=== PATIENT | female | born 1995 | race Caucasian/White ===

== ENCOUNTER 2017-12-03 23:08 | Emergency (ER) | payer OTHER, SELFPAY ==
[2017-12-03 23:09] VITALS: BP 150/85; PULSE 119; RESP 17; TEMP 36.9; O2SAT 98; BMI 44.1
[2017-12-03 23:41] LABS: Bedside Glucose 224 mg/dL (70-110)
--- NOTE | 2017-12-04 00:07 | ED.DCSUM_ITS ---
- ER Visit Summary Date of Service: 12/04/17 Chief Complaint: Elevated blood sugar History of Present Illness: The patient is a 22 F known history of type 1 insulin-dependent diabetes. With insulin pump. Patient states her blood sugars been elevated all day with associated nausea. No vomiting or diarrhea. No fever. Mild headache. Has had a history of DKA before that is what she wants to be checked for. Physical Examination: Vital signs stable afebrile. No acute distress. H EENT exam unremarkable. Pupils round reactive light. Neck nontender no meningismus. Able to touch chin to chest. Lungs clear to auscultation bilaterally. Heart regular rhythm no murmur rate about 115. Abdomen soft nontender normal bowel sounds no peritoneal signs. Moving all 4 extremities. Neurovascular intact. Neurologic exam normal. Skin normal. No rashes. Back nontender. Test Results: CBC shows a white count of 6. Hemoglobin of 11.9 a mild anemia. Otherwise unremarkable. Electrolytes gap of 9. Creatinine is 0.9 glucose of 194. UA normal no signs of infection. There is glucose in urine. Serum ketones are negative Emergency Department Course and Treatment: Patient will be treated with IV fluids, Zofran and Toradol. She will be evaluated for DKA which I feel is unlikely. Treatment Plan: Patient is doing well after a liter of normal saline. Repeat exam 01:30 she is doing well. Disposition: Discharge Impression: Acute hyperglycemia with a history of insulin-dependent diabetes This note was generated with [employer] dictation software. It may contain incorrect words, spelling, and punctuation that were not noted in review of the chart prior to signing ED Disposition - Plan for ED Patient: Disposition: Home or Assisted Living Chief Complaint: Dizziness Instructions: ED Hyperglycemia Diabetic Referrals: Edy Hyde MD [Primary Care Provider] - 3-5 Days Additional Instructions: Watch her blood sugars closely. Plenty of fluids.
[2017-12-04 00:09] VITALS: BP 110/44; PULSE 93; RESP 19; O2SAT 98
[2017-12-04] MEDS: Ondansetron 4 MG/2 ML Vial IV (00:19)
[2017-12-04] MEDS: Ketorolac 30 MG/ML Syringe IV (00:20)
[2017-12-04 00:46] LABS: Bacteria 0 SEEN /hpf (None Seen); Mucous, Urine 0 SEEN /hpf (<or=2+); Red Blood Cells-Urine 0 SEEN /hpf (0-5); White Blood Cells 0 SEEN /hpf (0-5)
[2017-12-04 00:47] LABS: Color, Urine Yellow (Yellow); Glucose, Dipstick 50 mg/dl (Normal); Ketone-Dipstick Negative (Negative); Leukocyte Esterase-Dipstick Negative /ul (Negative); Nitrite-Dipstick Negative (Negative); Occult Blood-Urine Negative /ul (Negative); Protein-Dipstick Negative (Negative); Specific Gravity, Urine 1.015 (1.002-1.030); Urine Bilirubin Dipstick Negative (Negative); Urine Clarity Clear (Clear); Urine Urobilinogen Normal (Normal)
[2017-12-04 00:55] LABS: Squamous Epithelial Cells - UA 0-5 SEEN /hpf (5-10)
[2017-12-04 01:08] LABS: Absolute Neutrophil Count 4.2 X10^3/uL (2.0-7.7); Basophil# 0.03 X10^3/uL; Basophil% 0.4 % (0-1); Eosinophil# 0.12 X10^3/uL; Eosinophils% 1.7 % (0-5); Hemoglobin 11.9 g/dl (12.0-15.0); Mean Corp Hgb Conc 33.1 g/gl (32-36); Mean Corpuscular Hgb 27.4 pg (27.0-32.0); Mean Corpuscular Volume 82.8 fL (81-99); Mean Platelet Vol. 11.5 fl (6.2-12.0); Monocyte# 0.52 X10^3/uL; Monocyte% 7.5 % (0-10); Neutrophil # 4.22 X10^3/uL (2.7-7.7); Neutrophil % 61.3 % (47-70); Platelet Count 189 K/mm3 (150-450); RBC Distribution Width CV 13.2 % (11.6-14.6); RBC Distribution Width SD 39.4 fl (35.1-43.9); Red Blood Count 4.35 M/mm3 (4.2-5.4); White Blood Count 6.9 K/mm3 (4.4-11.0)
[2017-12-04 01:09] LABS: POSITIVE COUNT NO; POSITIVE DIFFERENTIAL NO; POSITIVE MORPHOLOGY NO
[2017-12-04 01:21] LABS: Anion Gap 9 (5-15); BUN 9 mg/dL (7-18); BUN/Creat Ratio 9.8 RATIO (10-20); Calcium,Total 8.1 mg/dL (8.5-10.1); Chloride 110 mmol/L (98-107); Creatinine, Serum 0.92 mg/dL (0.55-1.02); EST Glomerular Filtration Rate 81 mL/min (>60); Est Glom Filt Rate - Afr Amer 98 mL/min (>60); Estimated Creatinine Clearance 103.72 ml/min; Glucose 194 mg/dL (74-106); Potassium 3.8 mmol/L (3.5-5.1); Sodium Level 140 mmol/L (136-145)
--- NOTE | 2017-12-04 01:32 | ED.DEP ---
ED Disposition - Plan for ED Patient: Disposition: Home or Assisted Living Chief Complaint: Dizziness Instructions: ED Hyperglycemia Diabetic Referrals: Edy Hyde MD [Primary Care Provider] - 3-5 Days Additional Instructions: Watch her blood sugars closely. Plenty of fluids.
[2017-12-04 01:51] VITALS: BP 98/63; PULSE 74; RESP 16; O2SAT 100
--- NOTE | 2017-12-04 01:52 | ED.RN ---
THIS NURSE REVIEWED D/C INSTRUCTIONS WITH PT. PT VERBALIZED UNDERSTANDING OF INSTRUCTIONS. IV D/C. IV CATHETER INTACT. PT TOLERATED WELL. PT DENIES FURTHER NEEDS OR QUESTIONS AT THIS TIME
== END 2017-12-04 01:53 | disposition home or self-care (01) ==
PROVIDERS: Emergency Provider Emergency Medicine; Family Provider Family Medicine; PCP Family Medicine
DX: E10.65 Type 1 diabetes mellitus with hyperglycemia (principal); Z79.4 Long term (current) use of insulin; Z96.41 Presence of insulin pump (external) (internal)
CPT/HCPCS: 36415; 80048; 81001; 82009; 82962; 85025; 96361; 96374; 96375; 99285; J7030; J7040; A4216; J2405

== ENCOUNTER 2018-02-16 22:23 | Emergency (ER) | payer OTHER, SELFPAY ==
[2018-02-16 22:25] VITALS: BP 119/71; PULSE 91; RESP 15; TEMP 36.6; BMI 43.9
[2018-02-16 22:36] LABS: Bedside Glucose 249 mg/dL (70-110)
--- NOTE | 2018-02-16 22:42 | ED.DCSUM_ITS ---
- ER Visit Summary Date of Service: 02/16/18 Chief Complaint: Nausea and vomiting History of Present Illness: The patient is a 22 F reports headache nausea and vomiting since this morning. No falls or head injuries. Photo and phonophobia. Positive aura. History of migraines however has not had any recently. No increased stress. Insulin-dependent diabetic. States been diabetic since 2016, is on insulin pump since April. Reports forgot to use her insulin pump when she went to work last evening. Restarted this morning when symptoms started. 3 total emesis last time was 2 hours ago. No hematemesis. No diarrhea. States was able to eat a few hours ago did give herself an bolus. Reports given herself 5 units before her meal. Does not know her current basal rate. Checking her unit, her basal rate is set with timers between 1.5-1 per 6 units/h. States that it feels similar to her DKA in the past. No fevers. Last menstrual period was a week ago. Normal cycles. Complains of polyuria and polydipsia. Physical Examination: General: Alert and oriented ?3, no acute distress HEENT: Normocephalic, atraumatic. Mild photophobia moist mucosa membranes Neck: supple, nontender. No meningismus Cardiovascular: Regular rate and rhythm, no murmurs Respiratory: Normal breath sounds, symmetric, no distress Abdomen: Soft, nontender, nondistended, no guarding or rebound Extremities: Nontender, no edema, pulses intact ?4 Neuro: no focal neurological deficits. Test Results: BG T2 49. Glucose 226 in the lab, gap was 6. Potassium 4.4. Creatinine 0.80. UA negative. HCG negative. Acetone negative. CBC white count 2.7, hemoglobin 13, platelets 180. Emergency Department Course and Treatment: Patient's pump was shut off in the ED. Blood glucose 249. Initiated fluids and labs for DKA rule out. This resulted was negative. She is treated for migraine symptoms with Reglan and Benadryl. CBC resulted returned noting neutropenia white count 2.7 normal hemoglobin and platelets. This was new compared to labs 2 months ago. She has no fever. No cough. Polyuria, UA obtained and returned negative for infection. With her headache symptoms neutropenia I did send for CT head which was normal. Additional Toradol and Zofran after negative results. On reevaluation improved symptoms. Discussed with patient neutropenia findings. She is given follow-up with hematology as an outpatient for reevaluation. All questions were answered. Treatment Plan: [] Disposition: Discharge Impression: 1. Migraine headache 2. Nausea and vomiting 3. Neutropenia This note was generated with [employer] software. It may contain incorrect words, spelling, and punctuation that were not noted in review of the chart prior to signing ED Disposition - Plan for ED Patient: Disposition: Home or Assisted Living Chief Complaint: Nausea/Vomiting Diagnosis: Migraine headache, Nausea and vomiting, Neutropenia Instructions: ED Nausea Vomiting, ED Headache Migraine, Neutropenia Prescriptions: Ondansetron [Zofran Odt] 8 mg PO Q8H PRN PRN #10 tab PRN Reason: Nausea Referrals: Rodrigo Donaldson MD [Primary Care Provider] - Nicho Cruz MD [NON-STAFF] - 3-5 Days Additional Instructions: WBC 2.7. Hemoglobin 13. Platelets 180. Follow-up with hematology as an outpatient for evaluation.
--- NOTE | 2018-02-16 22:43 | ED.RN ---
pt asked to place insulin pump on hold. informed and agreed. criss queen, rn [id number]
[2018-02-16] MEDS: Metoclopramide 10 MG/2 ML Vial IV (23:26)
[2018-02-16] MEDS: DiphenhydrAMINE 50 MG/ML Syringe 25 MG IV (23:26)
[2018-02-16] MEDS: 0.9% Normal Saline 1,000 ML 999 ML IV (23:27)
--- NOTE | 2018-02-16 23:35 | ED.RN ---
pt required mulitple attempts with ultrasound obtain a line. she has required a central line in the past. pt she is resting eyes closed. mother is at bedside. waiting for labs. pt is aware of the need for urine. criss queen rn [id number]
[2018-02-16 23:36] LABS: Anion Gap 6 (5-15); BUN 9 mg/dL (7-18); BUN/Creat Ratio 11.2 RATIO (10-20); Calcium,Total 8.3 mg/dL (8.5-10.1); Chloride 107 mmol/L (98-107); EST Glomerular Filtration Rate 94 mL/min (>60); Est Glom Filt Rate - Afr Amer 114 mL/min (>60); Estimated Creatinine Clearance 119.28 ml/min; Glucose 226 mg/dL (74-106); Potassium 4.4 mmol/L (3.5-5.1); Sodium Level 137 mmol/L (136-145)
[2018-02-16 23:45] LABS: Absolute Neutrophil Count 1.4 X10^3/uL (2.0-7.7); Basophil# 0.06 X10^3/uL; Basophil% 2.3 % (0-1); Eosinophil# 0.03 X10^3/uL; Eosinophils% 1.1 % (0-5); Hematocrit 39.2 % (37-47); Lymphocyte % 30.2 % (19-41); Mean Corp Hgb Conc 33.2 g/gl (32-36); Mean Corpuscular Hgb 27.2 pg (27.0-32.0); Monocyte# 0.32 X10^3/uL; Monocyte% 12.1 % (0-10); Neutrophil # 1.43 X10^3/uL (2.7-7.7); Neutrophil % 53.9 % (47-70); POSITIVE COUNT NO; POSITIVE DIFFERENTIAL NO; POSITIVE MORPHOLOGY NO; Platelet Count 180 K/mm3 (150-450); RBC Distribution Width CV 13.4 % (11.6-14.6); RBC Distribution Width SD 39.2 fl (35.1-43.9); Red Blood Count 4.78 M/mm3 (4.2-5.4); White Blood Count 2.7 K/mm3 (4.4-11.0)
[2018-02-17 00:09] LABS: Pregnancy, Serum, hCG Quali. NEGATIVE Negative (0-9 Nonpreg)
--- NOTE | 2018-02-17 00:14 | CT_ITS ---
STUDY: CT BRAIN WITHOUT CONTRAST REASON FOR EXAM: Female, 22 years old. Nausea, vomiting and headache since yesterday. RADIATION DOSAGE (If Supplied By Facility): CTDIvol = ( 44.99 ) mGy, DLP = ( 762.36 ) mGycm TECHNIQUE: Transaxial CT imaging of the brain was performed without administration of intravenous contrast material. Multiplanar reformations are submitted for interpretation. Individualized dose optimization techniques were used for this CT. COMPARISON: None. FINDINGS: Normal soft tissue structures. Normal calvarium. Normal size ventricles and extra-axial spaces for the patient's age. Normal white matter tracts of the cerebral hemispheres. Normal basal ganglia and thalami. Normal brainstem. Normal cerebellum. There is no intracranial hemorrhage. There are no findings of an acute ischemic infarction. Normal visualized paranasal sinuses. CT/Brain/Head without Contrast IMPRESSION: No CT evidence of acute intracranial hemorrhage. Electronically Signed: Lynda Sotelo MD at 0:50 EST , Service support ,
[2018-02-17] MEDS: Ketorolac 30 MG/ML Syringe IV (00:42)
[2018-02-17] MEDS: Ondansetron 4 MG/2 ML Vial IV (00:42)
[2018-02-17 00:56] LABS: Bacteria 0 SEEN /hpf (None Seen); Mucous, Urine 0 SEEN /hpf (<or=2+); Red Blood Cells-Urine 0 SEEN /hpf (0-5); White Blood Cells 0 SEEN /hpf (0-5)
[2018-02-17 01:08] LABS: Color, Urine Yellow (Yellow); Glucose, Dipstick 250 mg/dl (Normal); Ketone-Dipstick Negative (Negative); Leukocyte Esterase-Dipstick Negative /ul (Negative); Nitrite-Dipstick Negative (Negative); Occult Blood-Urine Negative /ul (Negative); Protein-Dipstick Negative (Negative); Specific Gravity, Urine 1.015 (1.002-1.030); Urine Bilirubin Dipstick Negative (Negative); Urine Clarity Sl. Cloudy (Clear); Urine Urobilinogen Normal (Normal)
[2018-02-17 01:18] LABS: Squamous Epithelial Cells - UA 0-5 SEEN /hpf (5-10)
[2018-02-17 01:48] VITALS: BP 106/59; PULSE 64; RESP 16; O2SAT 99
== END 2018-02-17 01:51 | disposition home or self-care (01) ==
PROVIDERS: Emergency Provider Emergency Medicine; Family Provider Family Medicine; PCP Family Medicine
DX: G43.909 Migraine, unspecified, not intractable, without status migrainosus (principal); R11.2 Nausea with vomiting, unspecified; D70.9 Neutropenia, unspecified; E11.9 Type 2 diabetes mellitus without complications; Z79.4 Long term (current) use of insulin
CPT/HCPCS: 70450; 80048; 81001; 82009; 82962; 84703; 85025; 96361; 96374; 96375; 99285; J7030; A4216; J2405

== ENCOUNTER 2018-02-21 16:09 | Emergency (ER) | payer OTHER, SELFPAY ==
[2018-02-21] VITALS (8 sets, daily range): BP systolic 104–144; BP diastolic 53–112; PULSE 63–87; RESP 16–19; TEMP 36.4; O2SAT 98–100; BMI 46.6
--- NOTE | 2018-02-21 16:24 | EKG12_ITS ---
Test Reason : MIGRAINE, CP Blood Pressure : / mmHG Vent. Rate : 080 BPM Atrial Rate : 080 BPM P-R Int : 160 ms QRS Dur : 092 ms QT Int : 406 ms P-R-T Axes : 052 027 014 degrees QTc Int : 468 ms Normal sinus rhythm Normal ECG Confirmed by APOLONIA LUX, NATIVIDAD ([id number]), news video editor ROSALEE LAWLER ([id number]) on 02/24/2018 10:56:06 AM Referred By: RUPESH Confirmed By:NATIVIDAD BARKSDALE MD
--- NOTE | 2018-02-21 16:24 | RAD_ITS ---
STUDY: X-RAY CHEST REASON FOR EXAM: Female, 22 years old. Chest pain TECHNIQUE: AP portable COMPARISON: None. FINDINGS: The lungs are clear and expanded. There is no demonstrated pleural abnormality. Normal size heart. Normal mediastinum and joe. Normal visualized pulmonary arteries. Normal visualized aortic arch and descending thoracic aorta. Normal visualized thoracic spine. Normal visualized ribs, clavicles, and shoulders. There is no demonstrated abnormality of the visualized soft tissue structures of the upper abdomen. RAD/Chest 1 View (Portable) IMPRESSION: Normal x-ray examination of the chest. Electronically Signed: Vega Marquez MD at 17:29 EST , Service support ,
--- NOTE | 2018-02-21 16:25 | US_ITS ---
STUDY: ABDOMINAL ULTRASOUND - RIGHT UPPER QUADRANT REASON FOR VISIT: Female, 22 years old. Abdominal pain TECHNIQUE: Ultrasound evaluation of the right upper quadrant was performed with real-time and static ugarte-scale imaging. TECHNICAL QUALITY: Adequate. COMPARISON: None. FINDINGS: Liver: The liver measures 18.3 cm. There is mildly increased echogenicity of the liver. The bile ducts are within normal limits. There is hepatic color flow. The direction of portal flow is hepatopetal. There is no demonstrated mass lesion. Gallbladder: Normal distended gallbladder. The gallbladder wall measures 2 mm. There is a negative sonographic Che's sign. There is no pericholecystic fluid. There are no gallstones. Common Bile Duct (C.B.D.): The common bile duct measures 4 mm. Pancreas: Normal size of the head, body and tail of the pancreas. There is normal echogenicity of the pancreas. There is no demonstrated pancreatic mass or cyst. Right Kidney: Normal size of the right kidney. The right kidney measures 12.4 x 5.4 x 4 cm. Normal renal cortex. The right cortex measures 1.3 cm. There is no demonstrated renal mass or cyst. There is no right hydronephrosis. US/Gallbladder IMPRESSION: Mildly enlarged fatty infiltrated liver No evidence for gallstones or definitive evidence for acute cholecystitis. Electronically Signed: Vega Marquez MD at 17:08 EST , Service support ,
--- NOTE | 2018-02-21 16:27 | ED.VISSUMM ---
- ER Visit Summary Date of Service: 02/21/18 Chief Complaint: Chest pain, headache, abdominal pain History of Present Illness: The patient is a 22 F presenting with chest pain, headache, abdominal pain. Patient was seen in the ED on Saturday for her migraine headache. She had a workup and felt improved and went home. She states her migraine continued and gradually worsened. She states currently it is 8 out of 10. It is similar to previous migraines. She states 1.5 hours ago she started having midsternal chest pain radiating to her left shoulder. She also complains of right upper quadrant and epigastric abdominal pain. This is worsened with eating. She has nausea and vomiting. She had diarrhea previously and this has resolved. She denies fever. She also states she is having difficulty controlling her blood sugars and they have been in the 300s. She has an insulin pump. Physical Examination: Vitals are stable. Patient is afebrile. Alert no acute distress. HEENT exam is unremarkable. Neck is supple. No meningismus Lungs are clear and equal bilaterally. Heart is regular rate and rhythm. Abdomen is soft right upper quadrant and epigastric tenderness with no rebound or guarding Extremities are unremarkable. Skin is warm and dry. No rash No focal neurologic deficit. Remainder of exam is unremarkable. Emergency Department Course and Treatment: Patient is given Reglan, Benadryl, IV fluids. EKG is normal sinus rhythm rate of 80. CBC showed a white count 4.3, platelets 144. Chemistries show glucose 119 with normal anion gap. Liver lipase are normal. Urinalysis is unremarkable. Troponin is negative. Ultrasound of the gallbladder shows no gallstones or evidence of cholecystitis, mildly enlarged fatty liver. Chest x-ray shows no acute process. CTA head and neck are normal. CT of the chest shows artifact with no obvious PE. CT abdomen pelvis shows mild nonspecific prominence of the liver and spleen. Tiny subcentimeter mediastinal nodes of uncertain etiology or clinical significance. Minor diverticular changes in the sigmoid colon without evidence for acute diverticulitis. No evidence for small bowel obstruction or pneumoperitoneum. On reevaluation, patient's headache and chest pain are both resolved. My suspicion for PE is low. She is not tachycardic or hypoxic. Schoolcraft test was ordered and is positive. Patient is advised to drink plenty of fluids and use Tylenol or Motrin at home. Advised to return to the ED for worsening complaints. Advised to follow-up with primary care physician. Disposition: Discharge home Impression: Mononucleosis This note was generated with [employer] dictation software. It may contain incorrect words, spelling, and punctuation that were not noted in review of the chart prior to signing ED Disposition - Plan for ED Patient: Chief Complaint: Chest Pain Referrals: Rodriog Donaldson MD [Primary Care Provider] -
[2018-02-21] MEDS: Metoclopramide 10 MG/2 ML Vial IV (16:33)
[2018-02-21] MEDS: DiphenhydrAMINE 50 MG/ML Syringe 25 MG IV (16:33)
[2018-02-21] MEDS: 0.9% Normal Saline 1,000 ML 1000 ML IV (16:33)
[2018-02-21 17:23] LABS: Bacteria 0 SEEN /hpf (None Seen); Mucous, Urine 0 SEEN /hpf (<or=2+); Red Blood Cells-Urine 0 SEEN /hpf (0-5); Squamous Epithelial Cells - UA 0 SEEN /hpf (5-10); White Blood Cells 0 SEEN /hpf (0-5)
[2018-02-21 17:24] LABS: Color, Urine Straw (Yellow); Glucose, Dipstick Normal (Normal); Ketone-Dipstick Negative (Negative); Leukocyte Esterase-Dipstick Negative /ul (Negative); Nitrite-Dipstick Negative (Negative); Occult Blood-Urine Negative /ul (Negative); Protein-Dipstick Negative (Negative); Specific Gravity, Urine 1.005 (1.002-1.030); Urine Bilirubin Dipstick Negative (Negative); Urine Clarity Clear (Clear); Urine Urobilinogen Normal (Normal)
[2018-02-21 17:42] LABS: Absolute Lymphocyte Count 2.44 X10^3/ul (0.83-4.51); Absolute Neutrophil Count 1.1 X10^3/uL (2.0-7.7); Basophil# 0.14 X10^3/uL; Basophil% 3.2 % (0-1); Eosinophil# 0.06 X10^3/uL; Eosinophils% 1.4 % (0-5); Hematocrit 40.8 % (37-47); Hemoglobin 13.6 g/dl (12.0-15.0); Lymphocyte # 2.44 X10^3/ul (4.0); Lymphocyte % 56.6 % (19-41); Mean Corp Hgb Conc 33.3 g/gl (32-36); Mean Corpuscular Hgb 26.9 pg (27.0-32.0); Mean Corpuscular Volume 80.6 fL (81-99); Monocyte# 0.54 X10^3/uL; Monocyte% 12.5 % (0-10); Neutrophil # 1.12 X10^3/uL (2.7-7.7); Neutrophil % 26.1 % (47-70); Platelet Count 144 K/mm3 (150-450); RBC Distribution Width CV 13.1 % (11.6-14.6); Red Blood Count 5.06 M/mm3 (4.2-5.4); White Blood Count 4.3 K/mm3 (4.4-11.0)
[2018-02-21 17:51] LABS: AST(SGOT) 25 U/L (15-37); Alanine Aminotransfer ALT/SGPT 37 U/L (13-56); Albumin, Serum 3.6 g/dL (3.2-5.0); Alkaline Phosphatase 73 U/L (45-117); Anion Gap 9 (5-15); BUN 11 mg/dL (7-18); BUN/Creat Ratio 15.3 RATIO (10-20); Bilirubin, Direct 0.09 mg/dL (0.00-0.30); Calcium,Total 8.7 mg/dL (8.5-10.1); Chloride 106 mmol/L (98-107); Creatinine, Serum 0.72 mg/dL (0.55-1.02); EST Glomerular Filtration Rate 107 mL/min (>60); Est Glom Filt Rate - Afr Amer 129 mL/min (>60); Estimated Creatinine Clearance 128.08 ml/min; Globulin 3.9 g/dL (2.2-4.2); Glucose 119 mg/dL (74-106); Lipase 208 U/L (73-393); Potassium 3.9 mmol/L (3.5-5.1); Protein, Total 7.5 g/dL (6.4-8.2); Sodium Level 140 mmol/L (136-145)
[2018-02-21 17:54] LABS: Differential Indicated SCAN CRITERIA MET; POSITIVE COUNT NO; POSITIVE DIFFERENTIAL NO; POSITIVE MORPHOLOGY YES
[2018-02-21 18:01] LABS: D-Dimer Quantitative (DVT/PE) 0.54 FEU/ug/m (0.27-0.49)
--- NOTE | 2018-02-21 18:01 | ED.RN ---
Lab called with critical D-Dimer of 0.54, aware.
[2018-02-21 18:09] LABS: Pregnancy, Serum, hCG Quali. NEGATIVE Negative (0-9 Nonpreg)
[2018-02-21 18:10] LABS: Internal QC Validated? YES +Cl - CLEAR BKGD
[2018-02-21 18:12] LABS: Record Kit Lot#, Mono 13171517
--- NOTE | 2018-02-21 18:13 | CT_ITS ---
STUDY: CTA OF THE BRAIN REASON FOR EXAM: Female, 22 years old. Migraine headaches RADIATION DOSAGE (If Supplied By Facility): CTDIvol = ( 20.73 ) mGy, DLP = ( 3292.93 ) mGycm TECHNIQUE: CT angiography was performed with a multi-detector CT scanner. Data acquisition was obtained from the skull base through the vertex following intravenous administration of ml of . MIP images were reconstructed from the axial data set. Post-processing of the angiographic images was performed, with multiplanar reformation and 3D reconstruction. Individualized dose optimization techniques were used for this CT. COMPARISON: None. FINDINGS: Normal bilateral petrous carotid arteries. Normal right cavernous carotid artery with a normal supraclinoid bifurcation. Normal left cavernous carotid artery with a normal supraclinoid bifurcation. Normal right A1 segments of the anterior cerebral artery. Normal left A1 segments of the anterior cerebral artery. Normal intact anterior communicating artery (ACOM). Normal bilateral A2 segments of the anterior cerebral arteries. Normal right M1 and M2 segments of the middle cerebral arteries, with a normal M1 bifurcation. Normal left M1 and M2 segments of the middle cerebral arteries, with a normal M1 bifurcation. Posterior communicating arteries are not visualized consistent with normal variant Normal bilateral vertebral arteries. Normal basilar artery with a normal basilar bifurcation. The visualized bilateral superior cerebellar (SCA) arteries are normal. Normal bilateral P1, P2 and visualized P3 segments of the posterior cerebral arteries. There is no demonstrated aneurysm of the belkofski of [place]. There is no demonstrated abnormality of the visualized brain. CT/CTA Head W/WO Contrast IMPRESSION: Normal belkofski of [place] without a demonstrated aneurysm or hemodynamically significant stenosis. Electronically Signed: Vega Marquez MD at 20:32 EST , Service support ,
--- NOTE | 2018-02-21 18:13 | CT_ITS ---
STUDY: CT ABDOMEN AND PELVIS WITH CONTRAST REASON FOR EXAM: Female, 22 years old. Pain RADIATION DOSAGE (If Supplied By Facility): CTDIvol = ( 20.73 ) mGy, DLP = ( 3292.93 ) mGycm TECHNIQUE: Transaxial images were obtained from the dome of the diaphragm to the symphysis pubis without oral contrast. 100ML ml of Isovue 370 contrast was administered. Sagittal and coronal images were reconstructed. Individualized dose optimization techniques were used for this CT. COMPARISON: None. FINDINGS: The visualized lung bases are unremarkable. The visualized portions of the heart are within normal limits. Mild prominence of the liver which appears homogeneous attenuation without mass or bile duct dilatation. Normal gallbladder and extrahepatic biliary system. There is elongation of the spleen measuring 13.15 cm in length however the spleen appears to be homogeneous attenuation.. Normal pancreas. Normal bilateral adrenal glands. Normal right kidney. Normal left kidney. Normal visualized stomach. Normal small intestine. Minor diverticular changes of the sigmoid colon without evidence for acute diverticulitis The appendix is visualized and appears normal. Tiny subcentimeter mesenteric nodes of uncertain significance Normal abdominal aorta. Normal inferior vena cava. Normal retroperitoneum. Incompletely distended thick-walled bladder likely of no significance Normal abdominal wall. Normal osseous structures. CT/Abdomen/Pelvis W IV Cont ONLY IMPRESSION: Mild nonspecific prominence of the liver and spleen. Tiny subcentimeter mediastinal nodes of uncertain etiology or clinical significance. Minor diverticular changes in the sigmoid colon without evidence for acute diverticulitis No evidence for small bowel obstruction or pneumoperitoneum Electronically Signed: Vega Marquez MD at 20:30 EST , Service support ,
--- NOTE | 2018-02-21 18:13 | CT_ITS ---
CTA of the neck INDICATION: Headaches TECHNIQUE: CTA of the neck was performed in the axial plane scanning in a dynamically enhanced fashion from the pulmonary apices to the skull base followed by sagittal and coronal reconstructions. Radiographic technique was optimized to limit patient radiation dose. DLP was 1589.54 FINDINGS: The carotid arteries bilaterally are normal caliber and there is no appreciable plaque or significant stenosis. There is no evidence for dissection. The vertebrals bilaterally are codominant and there is no significant segmental stenosis. CT/CTA Neck W/WO Contrast IMPRESSION: Normal CTA of the carotid and vertebral arteries Electronically Signed: Vega Marquez MD at 20:34 EST , Service support ,
--- NOTE | 2018-02-21 18:13 | CT_ITS ---
STUDY: CTA CHEST REASON FOR EXAM: Female, 22 years old. Chest pain and elevated d-dimer RADIATION DOSAGE (If Supplied By Facility): CTDIvol = ( 20.73 ) mGy, DLP = ( 3292.93 ) mGycm TECHNIQUE: The examination was performed with the intravenous administration of 100ML ml of Isovue 370 contrast material. Post-processing of the angiographic images was performed, with multiplanar reformation and 3D reconstruction. Individualized dose optimization techniques were used for this CT. COMPARISON: None. FINDINGS: There is less than optimal opacification of the pulmonary arteries due to suboptimal bolus technique creating multiple filling defects making it difficult to definitively exclude the presence of pulmonary embolus although there is no definitive evidence of clot. Normal thoracic aorta and visualized great vessels. There is no demonstrated aortic dissection. Normal heart and pericardium. Normal mediastinum. Normal hilar regions. Normal visualized trachea and bronchi. The lungs are well expanded. There is minor atelectasis within the dependent portion of the lungs. No focal infiltrate or pulmonary nodule Normal pleura. Normal chest wall structures. Normal osseous structures. Normal visualized upper abdomen. CT/CTA Chest W/WO Contrast IMPRESSION: Less than optimal opacification of the pulmonary arteries due to suboptimal bolus technique... If strong clinical suspicion for pulmonary embolus ventilation/perfusion scan and Doppler study of the venous system of lower extremities would be helpful for further evaluation. Minor atelectasis within the dependent portion of the lungs. Electronically Signed: Vega Marquez MD at 20:45 EST , Service support ,
[2018-02-21 18:16] LABS: Platelet Estimate SLT DEC (ADEQ); Reactive Lymphocyte 1+
[2018-02-21 18:18] LABS: Monotest POSITIVE (Negative)
--- NOTE | 2018-02-21 18:18 | ED.RN ---
Received lab result of positive mono, Dr. Devin kolb.
--- NOTE | 2018-02-21 22:05 | ED.DEP ---
ED Disposition - Plan for ED Patient: Chief Complaint: Chest Pain Instructions: ED Mononucleosis Referrals: Rodrigo Donaldson MD [Primary Care Provider] -
[2018-02-24 10:59] LABS: Pathologist Review Reviewed
== END 2018-02-21 22:18 | disposition home or self-care (01) ==
LOC: ED 17:13
PROVIDERS: Emergency Provider Emergency Medicine; Family Provider Family Medicine; PCP Family Medicine
DX: B27.90 Infectious mononucleosis, unspecified without complication (principal); E11.9 Type 2 diabetes mellitus without complications; G43.909 Migraine, unspecified, not intractable, without status migrainosus; Z79.4 Long term (current) use of insulin
CPT/HCPCS: 70496; 70498; 71045; 71275; 74177; 76705; 80048; 80076; 81001; 82009; 83690; 84484; 84703; 85025; 85379; 86308; 93005; 96361; 96374; 96375; 99285; Q9967; A4216

== ENCOUNTER 2018-08-25 03:09 | Emergency (ER) | payer OTHER, SELFPAY ==
[2018-02-21 16:10] VITALS: BMI 46.6
[2018-08-25 03:10] VITALS: BP 159/96; PULSE 86; RESP 15; TEMP 37.1; O2SAT 100; BMI 45.6
--- NOTE | 2018-08-25 03:20 | ED.VISSUMM ---
- ER Visit Summary Date of Service: 08/25/18 Chief Complaint: Elevated blood sugar History of Present Illness: The patient is a 23 F history of insulin-dependent diabetes with an insulin pump. Recently diagnosed with bronchitis and in urgent care was started on an inhaler and prednisone yesterday. Since that time her blood sugars been running high. Today her blood sugars over 600. Besides her insulin pump which she believes is working she had it for around a year and a half and has had no problems with it. She also injected herself with subcu insulin at 5 PM 17 units and 10 additional units at 11 PM. She denies any nausea vomiting or diarrhea she had a mild cough with clear to green sputum. No abdominal pain. She is peeing more frequently but denies dysuria. Physical Examination: Well-appearing young female. Vital signs are stable and afebrile. No distress. Pulse ox 9% on room air no hypoxia. HEENT exam unremarkable. Neck nontender no lymphadenopathy. Lungs clear to auscultation bilaterally. Dry cough. No rales, rhonchi or wheezing. Equal symmetrical. Heart regular rhythm rate about 80 no murmur. Abdomen is soft and nontender. Normal bowel sounds no peritoneal signs. Patient moving all 4 extremities. No edema. Neurologically she is awake and alert with no focal motor deficits. Back is nontender. Test Results: CBC normal with a white count of 4. Electrolytes unremarkable anion gap is 10 creatinine is 1 blood sugars 521. UA normal. No nitrates no white cells and no ketones. Serum ketones negative also. Emergency Department Course and Treatment: Patient will have screening labs done to rule out DKA. She will be given a liter normal saline. Patient's history, physical and labs are consistent with hyperglycemia but not DKA. With her blood sugar at 521 she will be given 15 units of insulin. Repeat exam at 0 6:05 AM patient is doing well. Her most recent PTT is 375. She is feeling better. Comfortable being discharged home. She has a prescheduled appointment with her [employer] ho[employer] scoreboard operator tomorrow. She knows to stop her prednisone. Treatment Plan: Watch blood sugars closely. Stop steroids. Follow-up with her [employer] ho[employer] scoreboard operator and have her insulin pump evaluated also. Disposition: Discharge Impression: Acute hyperglycemia History of insulin-dependent diabetes Currently on steroids secondary to a URI This note was generated with [employer] software. It may contain incorrect words, spelling, and punctuation that were not noted in review of the chart prior to signing ED Disposition - Plan for ED Patient: Disposition: Home or Assisted Living Instructions: ED Hyperglycemia Diabetic Referrals: Rodrigo Donaldson MD [Primary Care Provider] - As Needed Additional Instructions: Stop the prednisone. Watch her blood sugars closely. Return to the ER feeling worse. Follow-up with your ultimate ho[employer] scoreboard operator and have your insulin pump evaluated.
--- NOTE | 2018-08-25 03:24 | ED.DCSUM_ITS ---
- ER Visit Summary Date of Service: 08/25/18 Chief Complaint: Elevated blood sugar History of Present Illness: The patient is a 23 F history of insulin-dependent diabetes with an insulin pump. Recently diagnosed with bronchitis and in urgent care was started on an inhaler and prednisone yesterday. Since that time her blood sugars been running high. Today her blood sugars over 600. Besides her insulin pump which she believes is working she had it for around a year and a half and has had no problems with it. She also injected herself with subcu insulin at 5 PM 17 units and 10 additional units at 11 PM. She denies any nausea vomiting or diarrhea she had a mild cough with clear to green sputum. No abdominal pain. She is peeing more frequently but denies dysuria. Physical Examination: Well-appearing young female. Vital signs are stable and afebrile. No distress. Pulse ox 9% on room air no hypoxia. HEENT exam unremarkable. Neck nontender no lymphadenopathy. Lungs clear to auscultation bilaterally. Dry cough. No rales, rhonchi or wheezing. Equal symmetrical. Heart regular rhythm rate about 80 no murmur. Abdomen is soft and nontender. Normal bowel sounds no peritoneal signs. Patient moving all 4 extremities. No edema. Neurologically she is awake and alert with no focal motor deficits. Back is nontender. Test Results: CBC normal with a white count of 4. Electrolytes unremarkable anion gap is 10 creatinine is 1 blood sugars 521. UA normal. No nitrates no white cells and no ketones. Serum ketones negative also. Emergency Department Course and Treatment: Patient will have screening labs done to rule out DKA. She will be given a liter normal saline. Patient's history, physical and labs are consistent with hyperglycemia but not DKA. With her blood sugar at 521 she will be given 15 units of insulin. Repeat exam at 0 6:05 AM patient is doing well. Her most recent PTT is 375. She is feeling better. Comfortable being discharged home. She has a prescheduled appointment with her receptionist tomorrow. She knows to stop her prednisone. Treatment Plan: Watch blood sugars closely. Stop steroids. Follow-up with her receptionist and have her insulin pump evaluated also. Disposition: Discharge Impression: Acute hyperglycemia History of insulin-dependent diabetes Currently on steroids secondary to a URI This note was generated with TriggerMail[employer] software. It may contain incorrect words, spelling, and punctuation that were not noted in review of the chart prior to signing ED Disposition - Plan for ED Patient: Disposition: Home or Assisted Living Instructions: ED Hyperglycemia Diabetic Referrals: Rodrigo Donaldson MD [Primary Care Provider] - As Needed Additional Instructions: Stop the prednisone. Watch her blood sugars closely. Return to the ER feeling worse. Follow-up with your receptionist and have your insulin pump evaluated.
[2018-08-25 03:40] LABS: Bacteria 0 SEEN /hpf (None Seen); Mucous, Urine 0 SEEN /hpf (<or=2+); Squamous Epithelial Cells - UA 0 SEEN /hpf (5-10); White Blood Cells 0 SEEN /hpf (0-5)
[2018-08-25] MEDS: 0.9% Normal Saline 1,000 ML 1000 ML IV (03:42)
[2018-08-25 03:49] LABS: Absolute Lymphocyte Count 1.07 X10^3/ul (0.83-4.51); Absolute Neutrophil Count 3.4 X10^3/uL (2.0-7.7); Basophil# 0.02 X10^3/uL; Basophil% 0.4 % (0-1); Eosinophil# 0.01 X10^3/uL; Eosinophils% 0.2 % (0-5); Hematocrit 38.5 % (37-47); Hemoglobin 12.9 g/dl (12.0-15.0); Lymphocyte # 1.07 X10^3/ul (4.0); Lymphocyte % 22.3 % (19-41); Mean Corp Hgb Conc 33.5 g/gl (32-36); Mean Corpuscular Volume 77.5 fL (81-99); Mean Platelet Vol. 11.1 fl (6.2-12.0); Monocyte# 0.32 X10^3/uL; Monocyte% 6.7 % (0-10); Neutrophil # 3.36 X10^3/uL (2.7-7.7); Neutrophil % 70.2 % (47-70); Platelet Count 208 K/mm3 (150-450); RBC Distribution Width CV 13.5 % (11.6-14.6); RBC Distribution Width SD 37.4 fl (35.1-43.9); Red Blood Count 4.97 M/mm3 (4.2-5.4); White Blood Count 4.8 K/mm3 (4.4-11.0)
[2018-08-25 03:53] LABS: POSITIVE COUNT NO; POSITIVE DIFFERENTIAL NO; POSITIVE MORPHOLOGY NO
[2018-08-25 03:54] LABS: Color, Urine Straw (Yellow); Glucose, Dipstick 1000 mg/dl (Normal); Ketone-Dipstick Negative (Negative); Leukocyte Esterase-Dipstick Negative /ul (Negative); Nitrite-Dipstick Negative (Negative); Occult Blood-Urine 150 /ul (Negative); Protein-Dipstick Negative (Negative); Specific Gravity, Urine 1.005 (1.002-1.030); Urine Bilirubin Dipstick Negative (Negative); Urine Clarity Clear (Clear); Urine Urobilinogen Normal (Normal); Urine pH 6.5 (5.0 - 8.0)
[2018-08-25 04:12] LABS: Anion Gap 10 (5-15); BUN 17 mg/dL (7-18); Calcium,Total 8.7 mg/dL (8.5-10.1); Chloride 101 mmol/L (98-107); Creatinine, Serum 1.06 mg/dL (0.55-1.02); EST Glomerular Filtration Rate 68 mL/min (>60); Est Glom Filt Rate - Afr Amer 83 mL/min (>60); Estimated Creatinine Clearance 89.26 ml/min; Glucose 521 mg/dL (74-106); Potassium 3.9 mmol/L (3.5-5.1); Sodium Level 135 mmol/L (136-145)
[2018-08-25 04:22] LABS: Red Blood Cells-Urine 0-5 SEEN /hpf (0-5)
--- NOTE | 2018-08-25 04:42 | ED.DEP ---
ED Disposition - Plan for ED Patient: Disposition: Home or Assisted Living Instructions: ED Hyperglycemia Diabetic Referrals: Rodrigo Donaldson MD [Primary Care Provider] - As Needed Additional Instructions: Stop the prednisone. Watch her blood sugars closely. Return to the ER feeling worse. 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
[2018-08-25] MEDS: Insulin NPH Human 100 UNITS/ML PEN 15 UNITS SC (04:52)
[2018-08-25 06:05] LABS: Bedside Glucose 375 mg/dL (70-110)
[2018-08-25 06:09] VITALS: BP 133/88; RESP 18; O2SAT 100
== END 2018-08-25 06:11 | disposition home or self-care (01) ==
PROVIDERS: Emergency Provider Emergency Medicine; Family Provider Family Medicine; PCP Family Medicine
DX: E11.65 Type 2 diabetes mellitus with hyperglycemia (principal); Z79.4 Long term (current) use of insulin; J06.9 Acute upper respiratory infection, unspecified; R05 Cough
CPT/HCPCS: 80048; 81001; 82009; 82962; 85025; 96360; 99283; J7030; A4216

== ENCOUNTER 2019-01-19 04:25 | Emergency (ER) | payer OTHER, SELFPAY ==
[2019-01-19 04:27] VITALS: PULSE 106; RESP 20; O2SAT 98
[2019-01-19 04:28] VITALS: RESP 18; TEMP 36.9; BMI 48.0
--- NOTE | 2019-01-19 04:28 | EKG12_ITS ---
Test Reason : DIZZZY Blood Pressure : / mmHG Vent. Rate : 113 BPM Atrial Rate : 113 BPM P-R Int : 164 ms QRS Dur : 088 ms QT Int : 346 ms P-R-T Axes : 041 011 005 degrees QTc Int : 474 ms Sinus tachycardia Cannot rule out Anterior infarct , age undetermined Abnormal ECG Confirmed by APOLONIA LUX, NATIVIDAD ([id number]), scientific editor QUINTEN GARCIA ([id number] on 01/23/2019 10:31:55 AM Referred By: HEATHER Confirmed By:NATIVIDAD BARKSDALE MD
--- NOTE | 2019-01-19 04:46 | RAD_ITS ---
STUDY: X-RAY CHEST REASON FOR EXAM: Female, 23 years old. Chest pain. TECHNIQUE: PA and lateral views of the chest. COMPARISON: February 21, 2018. FINDINGS: The lungs are clear and expanded. There is no demonstrated pleural abnormality. Normal size heart. Normal mediastinum and joe. Normal visualized pulmonary arteries. Normal visualized aortic arch and descending thoracic aorta. Normal visualized thoracic spine. Normal visualized ribs, clavicles, and shoulders. There is no demonstrated abnormality of the visualized soft tissue structures of the upper abdomen. RAD/Chest PA and Lateral IMPRESSION: Normal x-ray examination of the chest. Electronically Signed: Stanley Cano MD at 5:17 EDT , Service support ,
[2019-01-19] MEDS: 0.9% Normal Saline 1,000 ML 1000 ML IV (04:51)
--- NOTE | 2019-01-19 05:07 | ED.VIS.GEN ---
History of Present Illness Chief Complaint: Dizziness Informant: Patient Onset: Today Context: Sudden Onset Timing: Continuous Narrative: Patient is a 23-year-old female presenting with palpitations and lightheadedness. 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 Patient tried to eat and was resting but continued to have the symptoms. She was then sent to the emergency room for further evaluation. Patient denies any shortness of breath or difficulty breathing. She denies any chest pain just a sensation of palpitations and discomfort associated with this. She denies any nausea, vomiting or abdominal pain. Patient is a type I diabetic with an insulin pump. She states her blood sugar has been normal. She also has a history of hyperthyroid and now hypothyroid. She had no recent changes in her Synthroid dosage. She comments that the last time she felt like this was when she was hyperthyroid. Patient denies any swelling of her legs. She denies any history of blood clots, pulmonary embolism or DVT. She is not on any estrogen supplements or control. Patient denies any recent travel or immobilization. She denies any other complaints at this time. Patient does not think she is . Her LMP was 2-1/2 weeks ago. Past Medical History - Allergies and Home Meds Allergies/Adverse Reactions: Allergies amoxicillin Adverse Reaction (Verified 01/19/19 04:33) Rash bupropion [From Wellbutrin] Adverse Reaction (Verified 01/19/19 04:33) Other venlafaxine [From Effexor] Adverse Reaction (Verified 01/19/19 04:33) Other Primary Care Physician: Rodrigo Donaldson MD [Primary Care Provider] - Prior records reviewed: Yes Past Medical History: - - Type 1 diabetes mellitus, hypothyroid Surgical History: noncontributory Smoking Status: Former smoker Review of Systems All systems negative except as indicated General: Reports: - - Lightheadedness Cardiovascular: Reports: Palpitations, Heart racing Physical Exam Vital Signs/Narrative: Vital Signs Temp Pulse Resp Pulse Ox 01/19/19 04:28 98.4 F 18 01/19/19 04:27 106 H 20 H 98 Inital Vital Signs reviewed: Yes General: Well nourished, Well developed, Obese, No Acute Distress Head: Normocephalic, Atraumatic Eyes: Perrl, EOMI, - - Bilateral fatiguing, horizontal nystagmus with leftward gaze ENT: Moist mucous membranes, No rhinorrhea, TM's clear. Negative for: Nasal congestion, Sinus tenderness Neck: Supple, Nontender Cardiovascular: Regular rhythm, No murmurs, Tachycardia. Negative for: Murmur Respiratory: No distress, CTA bilaterally, Chest nontender Abdomen: Soft, Nontender, Nondistended, Normal bowel sounds Back: Nontender, Normal Inspection Extremities: Nontender, No edema. Negative for: Calf Tenderness Skin: Normal color, No rash, - - Insulin pump in place over left lower abdomen Neurological: Alert, Oriented x3, Cranial nerves II-XII grossly intact, Normal Strength, Normal Sensation Psychological: Normal affect, Normal Mood Diagnostic/Tx/Re-eval Chest X-Ray - ED: 2 View, Read by ED Physician, Read by Radiologist, No Acute Disease Clinical Impression(s) from Imaging Studies Chest X-Ray 01/19/19 04:46 IMPRESSION: Normal x-ray examination of the chest. Electronically Signed: Stanley Cano MD at 5:17 EDT , Service support , Laboratory Data 01/19/19 01/19/19 01/19/19 04:36 04:36 04:36 WBC 6.3 RBC 5.07 Hgb 13.2 Hct 41.3 MCV 81.5 MCH 26.0 L MCHC 32.0 RDW Std Deviation 37.9 RDW Coeff of Camila 13.0 Plt Count 209 MPV 11.3 Immature Gran % (Auto) 0.300 Neut % (Auto) 56.2 Lymph % (Auto) 33.6 [place] % (Auto) 6.4 Eos % (Auto) 2.9 Baso % (Auto) 0.6 Absolute Neuts (auto) 3.5 Absolute Lymphs (auto) 2.11 Nucleated RBC % 0 D-Dimer Quant (PE/DVT) < 0.27 L Sodium 138 Potassium 3.8 Chloride 103 Carbon Dioxide 26.0 Anion Gap 9 BUN 13 Creatinine 0.84 Estim Creat Clear Calc 108.86 Est GFR (MDRD) Af Amer 108 Est GFR (MDRD) Non-Af 89 BUN/Creatinine Ratio 15.5 Glucose 282 H Calcium 8.8 Troponin I < 0.015 TSH 8.76 H Urine Color Urine Clarity Urine pH Ur Specific [place] Urine Protein Urine Glucose (UA) Urine Ketones Urine Occult Blood Urine Nitrite Urine Bilirubin Urine Urobilinogen Ur Leukocyte Esterase Urine RBC Urine WBC Ur Squamous Epith Cells Urine Bacteria Urine Mucus Urine Test 01/19/19 01/19/19 05:55 05:55 WBC RBC Hgb Hct MCV MCH MCHC RDW Std Deviation RDW Coeff of Camila Plt Count MPV Immature Gran % (Auto) Neut % (Auto) Lymph % (Auto) [place] % (Auto) Eos % (Auto) Baso % (Auto) Absolute Neuts (auto) Absolute Lymphs (auto) Nucleated RBC % D-Dimer Quant (PE/DVT) Sodium Potassium Chloride Carbon Dioxide Anion Gap BUN Creatinine Estim Creat Clear Calc Est GFR (MDRD) Af Amer Est GFR (MDRD) Non-Af BUN/Creatinine Ratio Glucose Calcium Troponin I TSH Urine Color Yellow Urine Clarity Clear Urine pH 5.0 Ur Specific [place] 1.020 Urine Protein Negative Urine Glucose (UA) 1000 H Urine Ketones 15 H Urine Occult Blood Negative Urine Nitrite Negative Urine Bilirubin Negative Urine Urobilinogen Normal Ur Leukocyte Esterase Negative Urine RBC 0 SEEN Urine WBC 0 SEEN Ur Squamous Epith Cells 0 SEEN Urine Bacteria 0 SEEN Urine Mucus 0 SEEN Urine Test Negative - Rhythm Strip Rhythm Strip: Sinus Tach Rate: 113 Ectopy: None - EKG Initial EKG Interpretation: Sinus Tachycardia, - - CO interval 164 QRS 88 QT/QTc 346/[address] segments Compared to prior EKG patient is now tachycardic - Medical Decision Making Patient is evaluated for lightheadedness. She is tachycardic but has a normal blood pressure. Patient is given IV fluids and her tachycardia does improve. She does not have any PVCs or other abnormalities on telemetry or EKG. CBC is normal. She is tachycardic so she cannot be ruled out for PE by PE RC. Patient is low risk for Wells criteria and d-dimer is negative. I do not suspect a PE now as a cause of her symptoms. BMP is remarkable only for an elevated glucose. Patient has a normal anion gap and she does not have signs and symptoms consistent with DKA. TSH is also elevated but not significantly. Patient does have a known history of hypothyroid. The symptoms are not consistent with myxedema coma. In light of an elevated TSH I do not suspect hyperthyroidism as the cause of her symptoms. Urinalysis does show 15 ketones and spillage of glucose. Patient may have a component of dehydration is contributing to her symptoms. Patient has no findings consistent with an acute infection. On physical exam she does have some fatiguing horizontal nystagmus when she looks to the left and she does describe her symptoms a little bit as a spinning sensation. It is possible she has a component of vertigo that is contributing to this. She is given a dose of meclizine. On reevaluation patient does have some improvement of her symptoms. She is comfortable with discharge home. She is encouraged to follow-up with her primary care doctor. Patient is counseled on signs and symptoms requiring return to the emergency room. Patient verbalizes agreement and understand this plan. Patient discharged home in stable and improved condition. ED Disposition - Plan for ED Patient: Disposition: Home or Assisted Living Instructions: DIZZINESS, Unk Cause, VERTIGO, Unspecified Prescriptions: Meclizine HCl [Antivert] 25 mg PO 4X/DAY PRN PRN #20 tab PRN Reason: Dizziness Prescription Printed Referrals: Rodrigo Donaldson MD [Primary Care Provider] - Additional Instructions: Please follow-up with your primary care doctor for further evaluation of the symptoms. Plenty of fluids. Return to emergency room if you have worsening symptoms or changing symptoms. Your TSH was mildly elevated today. Please let your primary care doctor know of this.
[2019-01-19 05:10] VITALS: BP 112/75; PULSE 97; RESP 17; O2SAT 99
[2019-01-19 05:11] LABS: Absolute Lymphocyte Count 2.11 X10^3/uL (0.83-4.51); Absolute Neutrophil Count 3.5 X10^3/uL (2.0-7.7); Basophil# 0.04 X10^3/uL; Basophil% 0.6 % (0-1); Eosinophil# 0.18 X10^3/uL; Eosinophils% 2.9 % (0-5); Hematocrit 41.3 % (37-47); Hemoglobin 13.2 g/dL (12.0-15.0); Lymphocyte # 2.11 X10^3/ul (4.0); Lymphocyte % 33.6 % (19-41); Mean Corpuscular Volume 81.5 fL (81-99); Mean Platelet Vol. 11.3 fl (6.2-12.0); Monocyte% 6.4 % (0-10); NRBC Flagged by Analyzer 0 % (0-5); Neutrophil # 3.53 X10^3/uL (2.7-7.7); Neutrophil % 56.2 % (47-70); Platelet Count 209 K/mm3 (150-450); RBC Distribution Width SD 37.9 fl (35.1-43.9); Red Blood Count 5.07 M/mm3 (4.2-5.4); White Blood Count 6.3 K/mm3 (4.4-11.0)
--- NOTE | 2019-01-19 05:11 | ED.RN ---
PT C/O FEELING MORE LIGHT HEADED. VS OBTAINED. DR PANG NOTIFIED
[2019-01-19 05:20] LABS: D-Dimer Quantitative (DVT/PE) < 0.27 FEU/ug/m (0.27-0.49)
[2019-01-19 05:34] LABS: Anion Gap 9 (5-15); BUN 13 mg/dL (7-18); BUN/Creat Ratio 15.5 RATIO (10-20); Calcium,Total 8.8 mg/dL (8.5-10.1); Chloride 103 mmol/L (98-107); Creatinine, Serum 0.84 mg/dL (0.55-1.02); EST Glomerular Filtration Rate 89 mL/min (>60); Est Glom Filt Rate - Afr Amer 108 mL/min (>60); Estimated Creatinine Clearance 108.86 ml/min; Glucose 282 mg/dL (74-106); Potassium 3.8 mmol/L (3.5-5.1); Sodium Level 138 mmol/L (136-145); Thyroid Stim Hormone (TSH) 8.76 uIU/mL (0.358-3.74)
[2019-01-19 06:01] LABS: Bacteria 0 SEEN /hpf (None Seen); Mucous, Urine 0 SEEN /hpf (<or=2+); Red Blood Cells-Urine 0 SEEN /hpf (0-5); Squamous Epithelial Cells - UA 0 SEEN /hpf (5-10); White Blood Cells 0 SEEN /hpf (0-5)
[2019-01-19 06:05] LABS: Internal QC Validated? YES +Cl - CLEAR BKGD; Pregnancy, Urine Negative Negative
[2019-01-19] MEDS: Meclizine HCl 25 MG Tablet PO (06:10)
[2019-01-19 06:31] LABS: Color, Urine Yellow (Yellow); Glucose, Dipstick 1000 mg/dl (Normal); Ketone-Dipstick 15 mg/dl (Negative); Leukocyte Esterase-Dipstick Negative /ul (Negative); Nitrite-Dipstick Negative (Negative); Occult Blood-Urine Negative /ul (Negative); Protein-Dipstick Negative (Negative); Urine Bilirubin Dipstick Negative (Negative); Urine Clarity Clear (Clear); Urine Urobilinogen Normal (Normal)
[2019-01-19 07:00] VITALS: BP 117/61; PULSE 90; RESP 18; O2SAT 97
== END 2019-01-19 08:48 | disposition home or self-care (01) ==
PROVIDERS: Emergency Provider Emergency Medicine; Family Provider Family Medicine; PCP Family Medicine
DX: R42 Dizziness and giddiness (principal); E10.9 Type 1 diabetes mellitus without complications; E03.9 Hypothyroidism, unspecified; Z87.891 Personal history of nicotine dependence; R00.0 Tachycardia, unspecified
CPT/HCPCS: 71046; 80048; 81001; 81025; 84443; 84484; 85025; 85379; 93005; 96360; 99285; A4216

== ENCOUNTER 2019-03-27 16:58 | Emergency (ER) | payer OTHER, SELFPAY ==
[2019-03-27 16:09] VITALS: BMI 46.3
[2019-03-27 16:59] VITALS: BP 138/85; PULSE 86; RESP 18; TEMP 36.8; O2SAT 97; BMI 53.1
--- NOTE | 2019-03-27 18:00 | US_ITS ---
STUDY: ABDOMINAL ULTRASOUND - RIGHT UPPER QUADRANT REASON FOR VISIT: Female, 23 years old RUQ PAIN TECHNIQUE: Ultrasound evaluation of the right upper quadrant was performed with real-time and static ugarte-scale imaging. TECHNICAL QUALITY: Adequate. COMPARISON: None. FINDINGS: Liver: The liver measures 16.6 cm. There is normal echogenicity of the liver. The bile ducts are within normal limits. There is hepatic color flow. The direction of portal flow is hepatopetal. There is no demonstrated mass lesion. Gallbladder: Normal distended gallbladder. The gallbladder wall measures 2.0 mm. There is a positive sonographic Che''s sign. There is no pericholecystic fluid. There are no gallstones. Common Bile Duct (C.B.D.): The common bile duct measures 5.0 mm. Pancreas: Normal size of the head, body and tail of the pancreas. There is normal echogenicity of the pancreas. There is no demonstrated pancreatic mass or cyst. Right Kidney: Normal size of the right kidney. The right kidney measures 11.5 x 5 x 4.2 cm. Normal renal cortex. The right cortex measures 2.0 cm. There is no demonstrated renal mass or cyst. There is no right hydronephrosis. US/Gallbladder IMPRESSION: There is NO cholelithiasis or gallbladder wall thickening or biliary ductal dilatation. Patient reports palpable tenderness. Electronically Signed: Peng Fernandez MD at 20:02 EST , Service support ,
[2019-03-27 18:16] LABS: Absolute Lymphocyte Count 1.73 X10^3/uL (0.83-4.51); Absolute Neutrophil Count 3.1 X10^3/uL (2.0-7.7); Basophil# 0.04 X10^3/uL; Basophil% 0.7 % (0-1); Eosinophil# 0.13 X10^3/uL; Eosinophils% 2.4 % (0-5); Hematocrit 38.5 % (37-47); Hemoglobin 12.6 g/dL (12.0-15.0); Lymphocyte # 1.73 X10^3/ul (4.0); Lymphocyte % 31.7 % (19-41); Mean Corp Hgb Conc 32.7 g/dL (32-36); Mean Corpuscular Hgb 25.9 pg (27.0-32.0); Mean Corpuscular Volume 79.1 fL (81-99); Mean Platelet Vol. 10.9 fl (6.2-12.0); Monocyte# 0.41 X10^3/uL; Monocyte% 7.5 % (0-10); NRBC Flagged by Analyzer 0 % (0-5); Neutrophil # 3.12 X10^3/uL (2.7-7.7); Neutrophil % 57.3 % (47-70); Platelet Count 219 K/mm3 (150-450); RBC Distribution Width CV 13.3 % (11.6-14.6); RBC Distribution Width SD 37.8 fl (35.1-43.9); Red Blood Count 4.87 M/mm3 (4.2-5.4); White Blood Count 5.5 K/mm3 (4.4-11.0)
[2019-03-27] MEDS: Ondansetron 4 MG/2 ML Vial IV (18:23)
[2019-03-27] MEDS: Ketorolac 30 MG/ML Syringe IV (18:23)
[2019-03-27 18:29] LABS: AST(SGOT) 8 U/L (15-37); Alanine Aminotransfer ALT/SGPT 16 U/L (13-56); Albumin, Serum 3.7 g/dL (3.2-5.0); Alkaline Phosphatase 61 U/L (45-117); Anion Gap 5 (5-15); BUN 12 mg/dL (7-18); BUN/Creat Ratio 17.2 RATIO (10-20); Bilirubin, Direct 0.17 mg/dL (0.00-0.30); Chloride 109 mmol/L (98-107); EST Glomerular Filtration Rate 110 mL/min (>60); Est Glom Filt Rate - Afr Amer 133 mL/min (>60); Estimated Creatinine Clearance 117.01 ml/min; Globulin 3.4 g/dL (2.2-4.2); Glucose 131 mg/dL (74-106); Lipase 69 U/L (73-393); Potassium 3.8 mmol/L (3.5-5.1); Protein, Total 7.1 g/dL (6.4-8.2); Sodium Level 141 mmol/L (136-145)
[2019-03-27 18:43] LABS: Mucous, Urine 0 SEEN /hpf (<or=2+); Red Blood Cells-Urine 0 SEEN /hpf (0-5); White Blood Cells 0 SEEN /hpf (0-5)
--- NOTE | 2019-03-27 18:46 | ED.VIS.GI ---
History of Present Illness Chief Complaint: Abd Pain Informant: Patient - Abdominal Pain/Flank Pain Onset: Yesterday Context: Sudden Onset Timing: Intermittent Quality: Cramping, Sharp Location: RUQ - Nausea/Vomiting/Emesis GI Symptom: Nausea, Vomiting Onset: Today Quality: - - Bilious - Diarrhea/Melena/Hematochezia GI Symptom: Diarrhea Onset: Today Stool Quality: Loose Severity: Mild LMP: 3 weeks Narrative: Patient is a 23-year-old female with history of what sounds like biliary colic presenting with abdominal pain, nausea and vomiting. She states she started vomiting early this morning he has had 3 episodes. It started as food and then turned into green. She also had some episodes of diarrhea but there states her last bowel movement had started to firm up. She notes she had a fever earlier today of 101.2 which he took Tylenol for. Patient states she has sharp pain in her right upper quadrant that feels cramping as well. She states it feels that there is a spasm there. She notes that a couple years ago she was evaluated with a HIDA scan and ultrasound of her gallbladder. She was told that there was something wrong with it but she did not need it removed. Since then she is intermittently had pain in her right upper quadrant but nothing as severe as today. Patient denies any other symptoms at this time including chest pain, shortness of breath, urinary symptoms or rash. Past Medical History - Allergies and Home Meds Allergies/Adverse Reactions: Allergies amoxicillin Adverse Reaction (Verified 03/27/19 17:01) Rash bupropion [From Wellbutrin] Adverse Reaction (Verified 03/27/19 17:01) Other venlafaxine [From Effexor] Adverse Reaction (Verified 03/27/19 17:01) Other Primary Care Physician: Rodrigo Donaldson MD [Primary Care Provider] - Geraldo Kiran MD [STAFF PHYSICIAN] - Surgical History: noncontributory Smoking Status: Never smoker Review of Systems General: Denies: Chills, Fever, Sweats Eyes: Denies: Visual changes - bilaterally, Diplopia ENT: Denies: Rhinorrhea, Sore throat Cardiovascular: Denies: Chest pain, Palpitations Respiratory: Denies: Dyspnea, Cough, Dyspnea on exertion Gastrointestinal: Reports: Abdominal pain, Nausea, Vomiting, Diarrhea. Denies: Melena, Hematochezia Genitourinary: Denies: Dysuria, Hematuria, Frequency Musculoskeletal: Denies: Back pain, Extremity Pain Skin: Denies: Rash, Wounds Neurological: Denies: Headache, Weakness, Numbness Physical Exam Vital Signs/Narrative: Vital Signs Temp Pulse Resp BP Pulse Ox 03/27/19 16:59 98.2 F 86 18 138/85 H 97 Inital Vital Signs reviewed: Yes General: Well nourished, Well developed, No Acute Distress Head: Normocephalic, Atraumatic Eyes: Perrl, EOMI ENT: Moist mucous membranes, No rhinorrhea Neck: Supple, Nontender Cardiovascular: Regular rate, Regular rhythm, No murmurs Respiratory: No distress, CTA bilaterally, Chest nontender Abdomen: Soft, Nondistended, Normal bowel sounds, Tender - RUQ, Che's sign, - - Insulin pump in place, right middle abdomen . Negative for: Guarding, Rebound tenderness Back: Nontender, Normal Inspection Extremities: Nontender, No edema Skin: Normal color, No rash Neurological: Alert, Oriented x3, Cranial nerves II-XII grossly intact, Normal Strength, Normal Sensation Psychological: Normal affect, Normal Mood Diagnostic/Tx/Re-eval US: RUQ Clinical Impression(s) from Imaging Studies Gallbladder Ultrasound 03/27/19 18:00 IMPRESSION: There is NO cholelithiasis or gallbladder wall thickening or biliary ductal dilatation. Patient reports palpable tenderness. Electronically Signed: Peng Fernandez MD at 20:02 EST , Service support , Laboratory Data 03/27/19 03/27/19 03/27/19 17:35 17:35 18:30 WBC 5.5 RBC 4.87 Hgb 12.6 Hct 38.5 MCV 79.1 L MCH 25.9 L MCHC 32.7 RDW Std Deviation 37.8 RDW Coeff of Camila 13.3 Plt Count 219 MPV 10.9 Immature Gran % (Auto) 0.400 Neut % (Auto) 57.3 Lymph % (Auto) 31.7 [place] % (Auto) 7.5 Eos % (Auto) 2.4 Baso % (Auto) 0.7 Absolute Neuts (auto) 3.1 Absolute Lymphs (auto) 1.73 Nucleated RBC % 0 Sodium 141 Potassium 3.8 Chloride 109 H Carbon Dioxide 27.0 Anion Gap 5 BUN 12 Creatinine 0.70 Estim Creat Clear Calc 117.01 Est GFR (MDRD) Af Amer 133 Est GFR (MDRD) Non-Af 110 BUN/Creatinine Ratio 17.2 Glucose 131 H Calcium 9.0 Total Bilirubin 0.80 Direct Bilirubin 0.17 AST 8 L ALT 16 Alkaline Phosphatase 61 Total Protein 7.1 Albumin 3.7 Globulin 3.4 Lipase 69 L Urine Color Urine Clarity Urine pH Ur Specific [place] Urine Protein Urine Glucose (UA) Urine Ketones Urine Occult Blood Urine Nitrite Urine Bilirubin Urine Urobilinogen Ur Leukocyte Esterase Urine RBC Urine WBC Ur Squamous Epith Cells Urine Bacteria Urine Mucus Urine Test Negative 03/27/19 18:30 WBC RBC Hgb Hct MCV MCH MCHC RDW Std Deviation RDW Coeff of Camila Plt Count MPV Immature Gran % (Auto) Neut % (Auto) Lymph % (Auto) [place] % (Auto) Eos % (Auto) Baso % (Auto) Absolute Neuts (auto) Absolute Lymphs (auto) Nucleated RBC % Sodium Potassium Chloride Carbon Dioxide Anion Gap BUN Creatinine Estim Creat Clear Calc Est GFR (MDRD) Af Amer Est GFR (MDRD) Non-Af BUN/Creatinine Ratio Glucose Calcium Total Bilirubin Direct Bilirubin AST ALT Alkaline Phosphatase Total Protein Albumin Globulin Lipase Urine Color Yellow Urine Clarity Clear Urine pH 7.0 Ur Specific [place] 1.010 Urine Protein Negative Urine Glucose (UA) Normal Urine Ketones Negative Urine Occult Blood Negative Urine Nitrite Negative Urine Bilirubin Negative Urine Urobilinogen Normal Ur Leukocyte Esterase Negative Urine RBC 0 SEEN Urine WBC 0 SEEN Ur Squamous Epith Cells 0-5 SEEN Urine Bacteria RARE Urine Mucus 0 SEEN Urine Test - Medical Decision Making Patient is evaluated for nausea, vomiting, diarrhea as well as abdominal pain. She appears nontoxic in no acute distress. Her vital signs are normal. She does have tenderness in her right upper quadrant with a positive Che sign on exam. Patient does not have findings consistent with acute cholecystitis on exam as she does not have any gallstones, pericholecystic fluid or gallbladder wall thickening. She has normal common bile duct. BMP, liver panel and CBC are grossly normal. So is urinalysis. Urine is negative. Patient initially given Toradol for her pain as well as Zofran. He does have mild improvement but the pain is still present. She is given Bentyl. She is a type I diabetic it is possible she has a component of gastroparesis that is contributed to her pain. It is also possible that she has gastroenteritis that is causing her symptoms. As patient has had likely biliary colic in the past she is referred to surgery for outpatient follow-up. She is agreeable with this. Should be started on a course of Zofran and Bentyl for symptom control at home. Patient is counseled on signs and symptoms requiring return to the emergency room. Patient verbalizes agreement and understand this plan. Patient discharged home in stable and improved condition. ED Disposition - Plan for ED Patient: Disposition: Home or Assisted Living Diagnosis: Nausea and vomiting, Right upper quadrant abdominal pain Instructions: ABDOMINAL PAIN, Unknown Cause, (Female) Prescriptions: Dicyclomine HCl [Bentyl] 10 mg PO TIDAC PRN #20 cap PRN Reason: Gi Cramping Prescription Printed Ondansetron [Zofran Odt] 4 mg PO Q8H PRN PRN #10 tab PRN Reason: Nausea Prescription Printed Referrals: Rodrigo Donaldson MD [Primary Care Provider] - Geraldo Kiran MD [STAFF PHYSICIAN] - Additional Instructions: The exact cause of abdominal pain is not clear. Is possible you have a GI bug versus pain from your gallbladder. If the pain persist I would recommend he follow-up with general surgery. He been referred to Dr. Kiran for this. Return the emergency room if you have significantly worsening symptoms. Stick to liquid diet for the next day.
[2019-03-27 18:47] LABS: Color, Urine Yellow (Yellow); Glucose, Dipstick Normal (Normal); Ketone-Dipstick Negative (Negative); Leukocyte Esterase-Dipstick Negative /ul (Negative); Nitrite-Dipstick Negative (Negative); Occult Blood-Urine Negative /ul (Negative); Protein-Dipstick Negative (Negative); Urine Bilirubin Dipstick Negative (Negative); Urine Clarity Clear (Clear); Urine Urobilinogen Normal (Normal)
[2019-03-27 18:50] LABS: Internal QC Validated? YES +Cl - CLEAR BKGD; Pregnancy, Urine Negative Negative
[2019-03-27 18:53] LABS: Bacteria RARE /hpf (None Seen); Squamous Epithelial Cells - UA 0-5 SEEN /hpf (5-10)
[2019-03-27 19:41] VITALS: BP 120/78; PULSE 71; RESP 16; O2SAT 99
[2019-03-27] MEDS: Dicyclomine 10 MG Capsule 20 MG PO (21:28)
== END 2019-03-27 21:31 | disposition home or self-care (01) ==
PROVIDERS: Emergency Provider Emergency Medicine; Family Provider Family Medicine; PCP Family Medicine
DX: R10.11 Right upper quadrant pain (principal); R11.2 Nausea with vomiting, unspecified; E10.9 Type 1 diabetes mellitus without complications; Z79.4 Long term (current) use of insulin
CPT/HCPCS: 76705; 80048; 80076; 81001; 81025; 83690; 85025; 96374; 96375; 99283; A4216; J2405

== ENCOUNTER 2019-06-11 09:28 | Outpatient (RCR) | payer OTHER, SELFPAY ==
[2019-06-02 08:00] VITALS: BMI 53.1
== END 2019-06-30 23:59 ==
LOC: DC 09:28
PROVIDERS: PCP Family Medicine; Visit Provider Internal Medicine Endocrinology, Diabetes & Metabolism
DX: Z71.3 Dietary counseling and surveillance (principal); E10.65 Type 1 diabetes mellitus with hyperglycemia; E66.01 Morbid (severe) obesity due to excess calories; Z68.42 Body mass index [BMI] 45.0-49.9, adult
CPT/HCPCS: G0108

== ENCOUNTER → 2019-07-14 08:06 | Outpatient (CLI) | payer OTHER, SELFPAY ==
[2019-07-14 08:02] VITALS: BMI 53.1
--- NOTE | 2019-07-14 08:08 | RAD_ITS ---
STUDY: X-RAY CHEST REASON FOR EXAM: Female, 24 years old. pt. states she went to the doctor 10 days ago and is presumed Covid positive, SOB, she said her lungs feel like they are on fire. TECHNIQUE: PA and lateral views of the chest. COMPARISON: Comparison is made with prior study dated January 19, 2019. FINDINGS: The lungs are clear and expanded. There is no demonstrated pleural abnormality. Normal size heart. Normal mediastinum and joe. Normal visualized pulmonary arteries. Normal visualized aortic arch and descending thoracic aorta. Normal visualized thoracic spine. Normal visualized ribs, clavicles, and shoulders. There is no demonstrated abnormality of the visualized soft tissue structures of the upper abdomen. RAD/Chest PA and Lateral IMPRESSION: Normal x-ray examination of the chest. Electronically Signed: Bharath Garcia, at 8:43 EDT , Service support ,
== END ==
PROVIDERS: PCP Family Medicine; Referring Provider Physician Assistant Surgical; Visit Provider Physician Assistant Surgical
DX: R06.02 Shortness of breath (principal)
CPT/HCPCS: 71046

== ENCOUNTER 2019-07-22 14:00 | Outpatient (RCR) | payer OTHER, SELFPAY ==
[2019-06-02 08:00] VITALS: BMI 53.1
[2019-07-14 08:02] VITALS: BMI 53.1
== END 2019-07-30 23:59 ==
LOC: DC 14:00
PROVIDERS: PCP Family Medicine; Visit Provider Internal Medicine Endocrinology, Diabetes & Metabolism
DX: Z71.3 Dietary counseling and surveillance (principal); E10.65 Type 1 diabetes mellitus with hyperglycemia; E66.01 Morbid (severe) obesity due to excess calories; Z68.42 Body mass index [BMI] 45.0-49.9, adult
CPT/HCPCS: 97802; G0108

== ENCOUNTER 2019-08-12 08:24 | Outpatient (RCR) | payer OTHER, SELFPAY ==
[2019-07-14 08:02] VITALS: BMI 53.1
== END 2019-08-30 23:59 ==
LOC: DC 08:24
PROVIDERS: PCP Family Medicine; Visit Provider Internal Medicine Endocrinology, Diabetes & Metabolism
DX: Z71.3 Dietary counseling and surveillance (principal); E10.65 Type 1 diabetes mellitus with hyperglycemia; E66.01 Morbid (severe) obesity due to excess calories; Z68.42 Body mass index [BMI] 45.0-49.9, adult
CPT/HCPCS: 97803

== ENCOUNTER → 2019-09-11 07:48 | Outpatient (CLI) | payer OTHER, SELFPAY ==
[2019-07-14 08:02] VITALS: BMI 53.1
[2019-09-11 08:32] LABS: Microalbumin:Creatinine Ratio 33.3 mg/g CRE (<30 mg/g CRE)
[2019-09-11 08:40] LABS: T4 Free Direct 1.27 ng/dL (0.76-1.46); Thyroid Stim Hormone (TSH) 6.82 uIU/mL (0.358-3.74)
== END ==
PROVIDERS: PCP Family Medicine; Referring Provider Internal Medicine Endocrinology, Diabetes & Metabolism; Visit Provider Internal Medicine Endocrinology, Diabetes & Metabolism
DX: E10.9 Type 1 diabetes mellitus without complications (principal); E03.8 Other specified hypothyroidism; E06.3 Autoimmune thyroiditis
CPT/HCPCS: 36415; 82043; 82570; 84439; 84443

== ENCOUNTER 2019-09-29 10:24 | Outpatient (RCR) | payer OTHER, SELFPAY ==
[2019-07-14 08:02] VITALS: BMI 53.1
== END 2019-09-29 23:59 ==
LOC: DC 10:24
PROVIDERS: PCP Family Medicine; Visit Provider Internal Medicine Endocrinology, Diabetes & Metabolism
DX: Z71.3 Dietary counseling and surveillance (principal); E10.65 Type 1 diabetes mellitus with hyperglycemia; E66.01 Morbid (severe) obesity due to excess calories; Z68.42 Body mass index [BMI] 45.0-49.9, adult
CPT/HCPCS: 97803

== ENCOUNTER 2019-11-20 04:29 | Emergency (ER) | payer OTHER, SELFPAY ==
[2019-10-06 08:20] VITALS: BMI 53.1
[2019-11-20 04:30] VITALS: BP 125/78; PULSE 98; RESP 16; TEMP 36.9; O2SAT 98; BMI 49.1
--- NOTE | 2019-11-20 04:39 | EKG12_ITS ---
Test Reason : DIZZY Blood Pressure : / mmHG Vent. Rate : 097 BPM Atrial Rate : 097 BPM P-R Int : 156 ms QRS Dur : 096 ms QT Int : 348 ms P-R-T Axes : 015 036 020 degrees QTc Int : 441 ms Normal sinus rhythm Normal ECG Confirmed by LAILA LUX, ELENA ([id number]), editorial clerk KATHERINE REY ([id number]) on 11/27/2019 11:20:18 A M Referred By: LILY Confirmed By:ELSY ULLOA MD
[2019-11-20 04:40] VITALS: BP 128/78; PULSE 91; RESP 19; O2SAT 99
--- NOTE | 2019-11-20 04:41 | ED.VISSUMM ---
- ER Visit Summary Date of Service: 11/20/19 Chief Complaint: Syncope History of Present Illness: The patient is a [address] Donaldson and Dr. Borden. She reports that she was working in the [employer] and been standing for an unknown clear period of time. She became lightheaded and cold. Staff heard told her that she did not look well. She reports that she had mild nausea. She sat down and then became unresponsive for a short period of time. Patient denies any chest pain, palpitations, shortness of breath. She does have a history of type 1 diabetes mellitus with a pump. Her blood sugar on the floor was 192. She has never had anything like this before. On review of systems patient complains of generalized weakness and still feeling lightheaded. She has a headache that is 4-10 in severity. She has a history of similar headaches. Physical Examination: Vitals: Stable. Afebrile. General: Well-nourished and well-developed. Head: Normocephalic atraumatic. Neck: Supple, no lymphadenopathy. No JVD. Nontender. Cardiovascular: Regular rate and rhythm. No murmurs. Respiratory: No respiratory distress. Clear to auscultation bilaterally. Abdominal: Soft, nontender, nondistended, normal bowel sounds. No guarding, rebound, or peritoneal signs. Back: Nontender. Extremities: Nontender, no edema. Skin: Normal color, no rash. Neurologic: Alert and oriented ?3. Cranial nerves II through XII are intact. Normal strength and sensation. Psych: Normal affect. Test Results: EKG is sinus at [address] changes. She has normal intervals. No evidence of HOCM or Brugada syndrome. Is unchanged from December 2018. CBC is normal. Chem-7 shows a potassium of 3.3, chloride of 108, glucose 194. test is negative. Emergency Department Course and Treatment: Patient had an IV placed. She was given a liter of normal saline. Orthostatic vital signs were negative. She is resting comfortably. She was given Zofran IV and Tylenol p.o. Treatment Plan: Patient be discharged instructions to follow-up with her primary care physician in 1 to 2 days if not improving. Return to the emergency department for any worsening symptoms. Disposition: To home in improved and stable condition. Impression: 1. Syncope. 2. Insulin dependent diabetes mellitus. This note was generated with [employer] dictation software. It may contain incorrect words, spelling, and punctuation that were not noted in review of the chart prior to signing ED Disposition - Plan for ED Patient: Instructions: ED Fainting Uncertain Cause Referrals: Rodrigo Donaldson MD [Primary Care Provider] - 1-2 Days if not improving
[2019-11-20 04:51] LABS: Absolute Lymphocyte Count 2.37 X10^3/uL (0.83-4.51); Absolute Neutrophil Count 4.8 X10^3/uL (2.0-7.7); Basophil# 0.04 X10^3/uL; Basophil% 0.5 % (0-1); Eosinophil# 0.17 X10^3/uL; Eosinophils% 2.1 % (0-5); Hematocrit 39.2 % (37-47); Hemoglobin 12.8 g/dL (12.0-15.0); Lymphocyte # 2.37 X10^3/ul (4.0); Lymphocyte % 29.4 % (19-41); Mean Corp Hgb Conc 32.7 g/dL (32-36); Mean Corpuscular Hgb 25.8 pg (27.0-32.0); Mean Platelet Vol. 11.1 fl (6.2-12.0); Monocyte# 0.61 X10^3/uL; Monocyte% 7.6 % (0-10); NRBC Flagged by Analyzer 0 % (0-5); Neutrophil # 4.84 X10^3/uL (2.7-7.7); Platelet Count 245 K/mm3 (150-450); RBC Distribution Width CV 13.4 % (11.6-14.6); RBC Distribution Width SD 38.4 fl (35.1-43.9); Red Blood Count 4.96 M/mm3 (4.2-5.4); White Blood Count 8.1 K/mm3 (4.4-11.0)
[2019-11-20] MEDS: 0.9% Normal Saline 1,000 ML 1000 ML IV (04:58)
[2019-11-20 05:02] LABS: Internal QC Validated? YES +Cl - CLEAR BKGD; Pregnancy, Serum, hCG Quali. NEGATIVE Negative
--- NOTE | 2019-11-20 05:02 | ED.RN ---
blood sugar was 192 on ob.
[2019-11-20 05:04] LABS: Anion Gap 8 (5-15); BUN 11 mg/dL (7-18); BUN/Creat Ratio 12.5 RATIO (10-20); Calcium,Total 8.9 mg/dL (8.5-10.1); Chloride 108 mmol/L (98-107); Creatinine, Serum 0.88 mg/dL (0.55-1.02); EST Glomerular Filtration Rate 83 mL/min (>60); Est Glom Filt Rate - Afr Amer 101 mL/min (>60); Glucose 194 mg/dL (74-106); Potassium 3.3 mmol/L (3.5-5.1); Sodium Level 139 mmol/L (136-145)
[2019-11-20] MEDS: Ondansetron 4 MG/2 ML Vial IV (05:20)
[2019-11-20] MEDS: Acetaminophen 500 MG Tablet 1000 MG PO (05:20)
[2019-11-20 05:22] VITALS: BP 113/49; BP 118/68; BP 136/91; PULSE 85; PULSE 92; PULSE 97
[2019-11-20] MEDS: 0.9% Normal Saline 1,000 ML 999 ML IV (05:34)
[2019-11-20 06:37] VITALS: BP 104/62; PULSE 84; RESP 16; O2SAT 98
[2019-11-20 06:39] VITALS: BP 104/62; PULSE 84; RESP 16; O2SAT 98
[2019-11-24 09:10] LABS: Bedside Glucose 192 mg/dL (70-110)
== END 2019-11-20 06:39 | disposition home or self-care (01) ==
LOC: ED 04:50
PROVIDERS: Emergency Provider Emergency Medicine; PCP Family Medicine
DX: R55 Syncope and collapse (principal); E11.9 Type 2 diabetes mellitus without complications; Z79.4 Long term (current) use of insulin; E03.9 Hypothyroidism, unspecified
CPT/HCPCS: 80048; 82962; 84703; 85025; 93005; 96361; 96374; 99285; J7030; J2405

== ENCOUNTER 2019-11-30 15:07 | Outpatient (RCR) | payer OTHER, SELFPAY ==
[2019-07-14 08:02] VITALS: BMI 53.1
== END 2019-11-30 23:59 ==
LOC: DC 15:07
PROVIDERS: PCP Family Medicine; Visit Provider Internal Medicine Endocrinology, Diabetes & Metabolism
DX: Z71.3 Dietary counseling and surveillance (principal); E10.65 Type 1 diabetes mellitus with hyperglycemia; E66.01 Morbid (severe) obesity due to excess calories; Z68.42 Body mass index [BMI] 45.0-49.9, adult
CPT/HCPCS: 97803

== ENCOUNTER → 2020-04-04 06:17 | Outpatient (CLI) | payer OTHER, SELFPAY ==
[2020-03-10 11:09] VITALS: BMI 47.6
[2020-04-04 07:37] LABS: Microalbumin,Random Urine 32.4 mg/L (NO RANGE EST.); Microalbumin:Creatinine Ratio 34.9 mg/g CRE (<30 mg/g CRE)
[2020-04-04 08:42] LABS: T4 Free Direct 1.44 ng/dL (0.76-1.46); Thyroid Stim Hormone (TSH) 7.25 uIU/mL (0.358-3.74)
== END ==
PROVIDERS: PCP Family Medicine; Referring Provider Internal Medicine Endocrinology, Diabetes & Metabolism; Visit Provider Internal Medicine Endocrinology, Diabetes & Metabolism
DX: E03.8 Other specified hypothyroidism (principal); E06.3 Autoimmune thyroiditis
CPT/HCPCS: 36415; 82043; 82570; 84439; 84443

== ENCOUNTER 2020-04-28 19:35 | Outpatient (RCR) | payer OTHER, SELFPAY ==
[2020-03-10 11:09] VITALS: BMI 47.6
== END 2020-05-01 23:59 ==
LOC: LABSPEC 19:35
PROVIDERS: PCP Family Medicine; Visit Provider Family Medicine Geriatric Medicine
DX: Z03.818 Encounter for observation for suspected exposure to other biological agents ruled out (principal)
CPT/HCPCS: 87426

== ENCOUNTER 2020-09-22 14:45 | Emergency (ER) | payer OTHER, SELFPAY ==
[2020-08-11 08:19] VITALS: BMI 49.1
[2020-09-22 14:45] VITALS: BP 148/93; PULSE 118; RESP 16; TEMP 36.4; O2SAT 99; BMI 47.3
[2020-09-22 15:23] VITALS: BP 148/93; PULSE 118; RESP 16; TEMP 36.8; O2SAT 99
[2020-09-22 15:31] LABS: Mucous, Urine 0 SEEN /hpf (<or=2+); Red Blood Cells-Urine 0 SEEN /hpf (0-5)
[2020-09-22 15:33] LABS: Color, Urine Yellow (Yellow); Glucose, Dipstick 1000 mg/dl (Normal); Ketone-Dipstick 5 mg/dl (Negative); Leukocyte Esterase-Dipstick Negative /ul (Negative); Nitrite-Dipstick Negative (Negative); Occult Blood-Urine Negative /ul (Negative); Protein-Dipstick 30 mg/dl (Negative); Urine Bilirubin Dipstick Negative (Negative); Urine Clarity Clear (Clear); Urine Urobilinogen 4 mg/dl (Normal)
[2020-09-22 15:36] LABS: Internal QC Validated? YES +Cl - CLEAR BKGD; Pregnancy, Urine Negative Negative
[2020-09-22 15:38] LABS: Bacteria 1+ /hpf (None Seen); White Blood Cells 0-5 SEEN /hpf (0-5)
[2020-09-22 15:39] LABS: Squamous Epithelial Cells - UA 0-5 SEEN /hpf (5-10)
--- NOTE | 2020-09-22 15:51 | CT_ITS ---
STUDY: CT ABDOMEN AND PELVIS WITHOUT CONTRAST REASON FOR EXAM: Female, 25 years old. L flank pain, eval for stone/pyelo RADIATION DOSAGE (If Supplied By Facility): CTDIvol = ( 33.85 ) mGy, DLP = ( 1945.22 ) mGycm TECHNIQUE: Transaxial images were obtained from the dome of the diaphragm to the symphysis pubis without oral contrast, and without intravenous contrast. Sagittal and coronal images were reconstructed. Individualized dose optimization techniques were used for this CT. COMPARISON: None. FINDINGS: The visualized lung bases are unremarkable. The visualized portions of the heart are within normal limits. Normal liver. Normal gallbladder and extrahepatic biliary system. Normal spleen. Normal pancreas. Normal bilateral adrenal glands. Normal right kidney. Normal left kidney. Normal visualized stomach. Normal small intestine. Normal colon. The appendix is visualized and appears normal. Normal abdominal aorta. Normal inferior vena cava. Normal retroperitoneum. Normal urinary bladder. Normal abdominal wall. Normal osseous structures. CT/Abdomen/Pelvis without Cont IMPRESSION: No evidence of nephrolithiasis or hydronephrosis. No evidence of acute intra-abdominal process or focal inflammation. Electronically Signed: Liam Ferguson DO at 16:43 EDT , Service support ,
--- NOTE | 2020-09-22 15:56 | EX.ED.DYSGE1 ---
HPI History of Present Illness Chief Complaint: Complaint Informant: patient Narrative Narrative: Patient is a 25-year-old female with a past medical history of insulin-dependent diabetes, hypothyroidism who presents to the emergency department for dysuria, left-sided flank pain and chills. She has been on Cipro for a UTI over the past 3 days. She feels like her symptoms have been getting worse since then. She did have a fever prior to starting antibiotics but this did since resolved. She did go to urgent care who referred her to the emergency department. Patient states her blood glucose was in the low 200s this morning. They otherwise have been well controlled. She denies any significant abdominal pain. She has been feeling nauseous but not vomiting. She denies any change in moving bowels. No chest pain, shortness of breath but has had some intermittent palpitations and fluttering. [facility] Medical History (Updated 09/22/20 @ 17:[address] Nicho Amaya DO) Diabetes DKA (diabetic ketoacidoses) H/O emotional problems history of gastrointestinal problems History of migraine History of pneumonia History of UTI Irritable bowel syndrome Thyroid disease Home Medications insulin lispro 100 unit/mL subcutaneous solution 100 unit SC .continuous #90 ml 10/06/19 [Rx Last Taken Unknown] Lactobacillus acidophilus 460 mg PO DAILY 11/20/19 [History Last Taken Unknown] PNV cmb#95-ferrous fumarate-FA 1 ea PO DAILY 11/20/19 [History Last Taken Unknown] levothyroxine 125 mcg tablet 125 mcg PO DAILY #90 tab 04/04/20 [Rx Last Taken Unknown] lisinopril 10 mg tablet 10 mg PO DAILY #90 tab 04/05/20 [Rx Last Taken Unknown] ciprofloxacin HCl 500 mg PO BID 09/22/20 [History Last Taken Unknown] Allergy/AdvReac Type Severity Reaction Status Date / Time amoxicillin AdvReac Rash Verified 09/22/20 14:47 bupropion [From Wellbutrin] AdvReac Other Verified 09/22/20 14:47 venlafaxine [From Effexor] AdvReac Other Verified 09/22/20 14:47 Family History Grandmother Breast cancer Colon cancer Heart disease High cholesterol Ovarian cancer Uterine cancer Skin cancer Aunt Anxiety Surgical History history of wisdom teeth removal Social History Smoking Status: Never smoker alcohol intake: current alcohol intake frequency: holidays/special occasions only ROS ROS ED Constitutional Constitutional ED: Reports chills; Denies fever(s) Eyes Eyes: Denies change in vision ENT ENT ED: Denies epistaxis or rhinorrhea Cardiovascular Cardiovascular: Denies chest pain Respiratory/Chest Respiratory/Chest: Denies cough, dyspnea or dyspnea on exertion Gastrointestinal Gastrointestinal: Denies abdominal pain, diarrhea or vomiting Genitourinary Genitourinary ED: Reports dysuria and flank pain; Denies hematuria or urinary frequency Musculoskeletal Musculoskeletal: Denies neck pain Integumentary Denies rash Neurologic Neurologic: Denies dizziness, headache(s) or weakness EXAM Physical Exam Const Vital Signs: 09/22/20 14:45 09/22/20 15:23 09/22/20 16:00 Temperature 97.6 F L 98.3 F 98.3 F Temperature Source Temporal Oral Oral Pulse Rate 118 H 118 H 89 Respiratory Rate 16 16 16 Blood Pressure 148/93 H 148/93 H 110/75 Blood Pressure Mean 111 111 86 Pulse Ox 99 99 97 Oxygen Delivery Method Room Air Room Air Room Air Positive well nourished and well developed General Appearance ED: well developed and NAD HEENT Reports normocephalic and head/scalp atraumatic Eyes PERRL and EOMs intact bilaterally Neck supple Chest Wall inspection of chest normal Resp normal respiratory effort and clear to auscultation bilaterally Auscultation: Negative for rales, rhonchi or wheezes Cardio regular rhythm and no murmurs Cardio Narrative: Tachycardic GI normal to inspection, nondistended, normoactive bowel sounds and non-tender Palpation: soft; Negative for guarding or rebound tenderness present Back/Spine General Back: CVA tenderness left Extremity normal to inspection General Extremety ED: Negative for edema or tenderness General Extremity: Negative for edema Neuro CN's II-XII intact bilaterally and no sensory deficits noted Sensorium / Orientation: alert Motor Exam: strength 5/5 throughout Psych mental status grossly normal Skin no rashes or lesions noted MDM MDM MDM Narrative Medical decision making narrative: Patient presents to the emergency department for chills, left-sided flank pain and dysuria. She is currently being treated with Cipro but has not been getting any improvement. On arrival to the ED she is tachycardic but otherwise normal vital signs. She is in no acute distress. She does have left-sided CVA tenderness. Will check basic lab work and repeat a urinalysis today. Will check CT scan of the abdomen/pelvis to evaluate for kidney stone versus pyelonephritis. She is started on normal saline and given a dose of Zofran for symptomatic treatment. Patient's heart rate did come down throughout ED stay. She does not have a high white blood cell count. Kidney function is normal. CT scan abdomen pelvis did not reveal any acute abnormality including renal stone or pyelonephritis. Will recommend continuing her ciprofloxacin. She does have Pyridium at home she can take. She is to follow-up with her PCP. Return precautions are reviewed with her. All questions were answered. Lab Data Labs: Laboratory Results - last 24 hr 09/22/20 09/22/20 09/22/20 15:15 16:10 16:10 WBC 5.3 RBC 5.03 Hgb 12.8 Hct 39.6 MCV 78.7 L MCH 25.4 L MCHC 32.3 RDW Std Deviation 37.1 RDW Coeff of Camila 13.2 Plt Count 240 MPV 11.1 Immature Gran % (Auto) 0.600 Neut % (Auto) 61.7 Lymph % (Auto) 26.0 [place] % (Auto) 8.2 Eos % (Auto) 2.7 Baso % (Auto) 0.8 Absolute Neuts (auto) 3.3 Absolute Lymphs (auto) 1.37 Nucleated RBC % 0 Sodium 138 Potassium 3.7 Chloride 106 Carbon Dioxide 27.0 Anion Gap 5 BUN 8 Creatinine 0.73 Estim Creat Clear Calc 127.39 Est GFR (MDRD) Af Amer 124 Est GFR (MDRD) Non-Af 103 BUN/Creatinine Ratio 10.9 Glucose 170 H Calcium 8.5 Total Bilirubin 0.50 AST 18 ALT 26 Alkaline Phosphatase 80 Total Protein 7.0 Albumin 3.4 Globulin 3.6 Albumin/Globulin Ratio 0.9 Lipase 66 L Urine Color Yellow Urine Clarity Clear Urine pH 6.0 Ur Specific [place] 1.020 Urine Protein 30 H Urine Glucose (UA) 1000 H Urine Ketones 5 H Urine Occult Blood Negative Urine Nitrite Negative Urine Bilirubin Negative Urine Urobilinogen 4 H Ur Leukocyte Esterase Negative Urine RBC 0 SEEN Urine WBC 0-5 SEEN Ur Squamous Epith Cells 0-5 SEEN Urine Bacteria 1+ Urine Mucus 0 SEEN Urine Test Negative Radiography Diagnostic Testing: Radiology Impression Abdomen/Pelvis CT 09/22/20 15:51 IMPRESSION: No evidence of nephrolithiasis or hydronephrosis. No evidence of acute intra-abdominal process or focal inflammation. Electronically Signed: Liam Ferguson DO at 16:43 EDT , Service support , Discharge Plan Triage Chief Complaint: Complaint ED Provider: Nicho Amaya Dx/Rx/DC Orders Clinical Impression: UTI (urinary tract infection) Instructions: Understanding Urinary Tract ... Prescriptions: No Action insulin lispro [Humalog U-100 Insulin] 100 unit/mL solution 100 unit SC .continuous Qty: 90 RF: 3 Lactobacillus acidophilus 460 MG capsule 460 mg PO DAILY RF: 0 PNV cmb#95-ferrous fumarate-FA 1 EACH tablet 1 ea PO DAILY RF: 0 ciprofloxacin HCl 500 mg tablet 500 mg PO BID RF: 0 levothyroxine 125 mcg tablet 125 mcg PO DAILY Qty: 90 RF: 2 lisinopril 10 mg tablet 10 mg PO DAILY Qty: 90 RF: 2 Primary Care Provider: Rodrigo Donaldson Referrals: Rodrigo Donaldson MD [Primary Care Provider] - 3-5 Days if not improving Disposition Disposition: Home, Self Care
[2020-09-22 16:00] VITALS: BP 110/75; PULSE 89; RESP 16; TEMP 36.8; O2SAT 97
[2020-09-22] MEDS: Ondansetron 4 MG/2 ML Vial IV (16:13)
[2020-09-22] MEDS: 0.9% Normal Saline 1,000 ML 999 ML IV (16:13)
[2020-09-22 16:29] LABS: Absolute Lymphocyte Count 1.37 X10^3/uL (0.83-4.51); Absolute Neutrophil Count 3.3 X10^3/uL (2.0-7.7); Basophil# 0.04 X10^3/uL; Basophil% 0.8 % (0-1); Eosinophil# 0.14 X10^3/uL; Eosinophils% 2.7 % (0-5); Hematocrit 39.6 % (37-47); Hemoglobin 12.8 g/dL (12.0-15.0); Lymphocyte # 1.37 X10^3/ul (0.83-4.51); Mean Corp Hgb Conc 32.3 g/dL (32-36); Mean Corpuscular Hgb 25.4 pg (27.0-32.0); Mean Corpuscular Volume 78.7 fL (81-99); Mean Platelet Vol. 11.1 fl (6.2-12.0); Monocyte# 0.43 X10^3/uL; Monocyte% 8.2 % (0-10); NRBC Flagged by Analyzer 0 % (0-5); Neutrophil # 3.26 X10^3/uL (2.7-7.7); Neutrophil % 61.7 % (47-70); Platelet Count 240 K/mm3 (150-450); RBC Distribution Width CV 13.2 % (11.6-14.6); RBC Distribution Width SD 37.1 fl (35.1-43.9); Red Blood Count 5.03 M/mm3 (4.2-5.4); White Blood Count 5.3 K/mm3 (4.4-11.0)
[2020-09-22 16:46] LABS: ALB/GLOB Ratio 0.9 RATIO (0.9-2.4); AST(SGOT) 18 U/L (15-37); Alanine Aminotransfer ALT/SGPT 26 U/L (13-56); Albumin, Serum 3.4 g/dL (3.2-5.0); Alkaline Phosphatase 80 U/L (45-117); Anion Gap 5 (5-15); BUN 8 mg/dL (7-18); BUN/Creat Ratio 10.9 RATIO (10-20); Calcium,Total 8.5 mg/dL (8.5-10.1); Chloride 106 mmol/L (98-107); Creatinine, Serum 0.73 mg/dL (0.55-1.02); EST Glomerular Filtration Rate 103 mL/min (>60); Est Glom Filt Rate - Afr Amer 124 mL/min (>60); Estimated Creatinine Clearance 127.39 ml/min; Globulin 3.6 g/dL (2.2-4.2); Glucose 170 mg/dL (74-106); Lipase 66 U/L (73-393); Potassium 3.7 mmol/L (3.5-5.1); Sodium Level 138 mmol/L (136-145)
[2020-09-22 17:30] VITALS: RESP 16
[2020-09-22 17:46] VITALS: PULSE 77; RESP 16; O2SAT 98
--- NOTE | 2020-09-22 17:48 | ED.RN ---
REVIEWED D/C INSTRUCTIONS, FOLLOW UP CARE, AND S/S THAT WOULD WARRANT A RETURN TO THE ED WITH PT. PT VERBALIZED AN UNDERSTANDING AND DENIES FURTHER QUESTIONS FOR THIS RN. PT SKIN P/W/D, RESP EVEN AND UNLABORED, PT A&O X 3, NO DISTRESS NOTED. PT AMBULATED OUT OF ED, GAIT STEADY.
== END 2020-09-22 17:49 | disposition home or self-care (01) ==
PROVIDERS: Emergency Provider Emergency Medicine; PCP Family Medicine
DX: N39.0 Urinary tract infection, site not specified (principal); E11.9 Type 2 diabetes mellitus without complications; E03.9 Hypothyroidism, unspecified; Z79.4 Long term (current) use of insulin; K58.9 Irritable bowel syndrome, unspecified; Z79.899 Other long term (current) drug therapy; Z87.440 Personal history of urinary (tract) infections
CPT/HCPCS: 74176; 80053; 81001; 81025; 83690; 85025; 96361; 96374; 99283; J7030; A4216; J2405

== ENCOUNTER → 2021-03-02 09:35 | Outpatient (CLI) | payer OTHER, SELFPAY ==
[2021-03-02 12:36] LABS: Hemoglobin A1c 7.4 % (3.8-5.6)
[2021-03-02 12:45] LABS: Thyroid Stim Hormone (TSH) 0.63 uIU/mL (0.358-3.74)
[2021-03-02 13:12] LABS: HIV - WCH Non-Reactive (Nonreactive); Hepatitis C Antibody Non-Reactive (Nonreactive)
== END ==
PROVIDERS: PCP Family Medicine; Referring Provider Nurse Practitioner Primary Care; Visit Provider Nurse Practitioner Primary Care
DX: E10.9 Type 1 diabetes mellitus without complications (principal); Z11.59 Encounter for screening for other viral diseases; Z11.4 Encounter for screening for human immunodeficiency virus [HIV]; E03.9 Hypothyroidism, unspecified
CPT/HCPCS: 36415; 83036; 84443; 86703; 86803

== ENCOUNTER → 2021-09-07 | Outpatient (CLI) | payer OTHER, SELFPAY ==
--- NOTE | 2021-09-07 11:39 | US_ITS ---
STUDY: ULTRASOUND OF THE FEMALE PELVIS - COMPLETE REASON FOR EXAM: Female, 26 years old. L PEL PAIN LMP: 08/13/2021. TECHNIQUE: Transabdominal TECHNICAL QUALITY: Adequate. COMPARISON: None. FINDINGS: The uterus is anteverted and is in a midline position. The uterus measures 6.5 cm x 4.9 cm x 3.9 cm. Normal uterine cervix. The endometrium measures 8 mm in thickness, and is hyperechoic. There is no demonstrated endometrial mass. There is no demonstrated myometrial mass. I.U.D. - The patient does not have an I.U.D. The right ovary is visualized. The right ovary measures 2.4 cm x 1.8 cm x 2.0 cm. There is no right ovarian cyst or ovarian mass. There is no visualized right adnexal mass or complex lesion. There is normal arterial and normal venous vascularity. The left ovary is visualized. The left ovary measures 3.3 cm x 2.9 cm x 2.5 cm. There is no left ovarian cyst or ovarian mass. There is no visualized left adnexal mass or complex lesion. There is normal arterial and normal venous vascularity. There is no fluid in the cul-de-sac. The pre void volume of the bladder was 339 ml. US/Pelvic (Non ) IMPRESSION: Normal female pelvis. Electronically Signed: Bharath Garcia MD at 13:04 EDT ,
== END | disposition home or self-care (01) ==
LOC: US 11:36
PROVIDERS: PCP Family Medicine; Referring Provider Nurse Practitioner Family; Visit Provider Nurse Practitioner Family
DX: R10.2 Pelvic and perineal pain (principal)
CPT/HCPCS: 76856; 93976

== ENCOUNTER → 2022-02-28 | Outpatient (CLI) | payer OTHER, SELFPAY ==
[2022-02-28 15:58] LABS: ALB/GLOB Ratio 0.9 RATIO (0.9-2.4); AST(SGOT) 6 U/L (15-37); Alanine Aminotransfer ALT/SGPT 21 U/L (13-56); Albumin, Serum 3.3 g/dL (3.2-5.0); Alkaline Phosphatase 72 U/L (45-117); Anion Gap 7 (5-15); BUN 13 mg/dL (7-18); BUN/Creat Ratio 20.3 RATIO (10-20); Calcium,Total 8.5 mg/dL (8.5-10.1); Chloride 104 mmol/L (98-107); Cholesterol 195 mg/dL (200); Creatinine, Serum 0.64 mg/dL (0.55-1.02); EST Glomerular Filtration Rate 118 mL/min (>60); Est Glom Filt Rate - Afr Amer 143 mL/min (>60); Globulin 3.6 g/dL (2.2-4.2); Glucose 118 mg/dL (74-106); High Density Lipoprotein 49 mg/dL; Potassium 4.1 mmol/L (3.5-5.1); Protein, Total 6.9 g/dL (6.4-8.2); Sodium Level 137 mmol/L (136-145); T4 Free Direct 1.07 ng/dL (0.76-1.46); Triglycerides 136 mg/dL; Very Low Density Lipoprotein 27 mg/dL (5-40)
[2022-02-28 16:06] LABS: Microalbumin,Random Urine < 5.0 mg/L (NO RANGE EST.)
== END | disposition home or self-care (01) ==
LOC: BIMLAB 13:03
PROVIDERS: Internal Medicine Endocrinology, Diabetes & Metabolism; PCP Family Medicine; Referring Provider Nurse Practitioner Family; Visit Provider Nurse Practitioner Family
DX: E11.9 Type 2 diabetes mellitus without complications (principal); R80.9 Proteinuria, unspecified
CPT/HCPCS: 36415; 80053; 80061; 82043; 82306; 82570; 84439; 84443

== ENCOUNTER 2022-03-19 10:28 | Outpatient (RCR) | payer OTHER, SELFPAY | END 2022-03-31 23:59 | LOC: NS 10:28 | PROVIDERS: PCP Family Medicine; Visit Provider Internal Medicine Endocrinology, Diabetes & Metabolism | DX: Z71.3 Dietary counseling and surveillance (principal); E66.01 Morbid (severe) obesity due to excess calories; Z68.43 Body mass index [BMI] 50.0-59.9, adult | CPT/HCPCS: 97802 ==

== ENCOUNTER 2022-04-30 09:00 | Outpatient (RCR) | payer OTHER, SELFPAY | END 2022-05-01 23:59 | LOC: NS 09:00 | PROVIDERS: PCP Family Medicine; Visit Provider Internal Medicine Endocrinology, Diabetes & Metabolism | DX: Z71.3 Dietary counseling and surveillance (principal); E11.9 Type 2 diabetes mellitus without complications | CPT/HCPCS: 97803 ==

== ENCOUNTER 2022-05-12 22:02 | Emergency (ER) | payer OTHER, SELFPAY ==
[2022-05-12 22:02] VITALS: BP 182/91; PULSE 97; RESP 16; TEMP 36.3; O2SAT 98; BMI 51.6
--- NOTE | 2022-05-12 22:32 | EDS_ITS ---
HPI History of Present Illness Chief Complaint: General Illness Narrative Narrative: Patient presents with with nausea, 1 episode of vomiting, she also has a slight onset of headache and felt her heart racing prior to arrival. Apparently over the past few days her blood sugars have been in the 200s and 300s. She is a type I diabetic. She was in DKA about 6 years ago 1 time when she got diagnosed however she has not been in DKA since. No recent fevers or chills. She has a gradual onset of a headache for the past few days that is mild to moderate. No vision changes no photophobia no confusion weakness or paresthesias or any other neurological symptoms. [facility] Medical History Acute bronchitis, unspecified Diabetes DKA (diabetic ketoacidoses) H/O emotional problems history of gastrointestinal problems History of migraine History of pneumonia History of UTI Irritable bowel syndrome Thyroid disease Home Medications levothyroxine 125 mcg tablet 125 mcg PO DAILY #90 tabs 12/25/21 [Rx Last Taken Unknown] cholecalciferol (vitamin D3) 50 mcg (2,000 unit) capsule 50 mcg PO DAILY 03/13/22 [History Last Taken Unknown] insulin lispro 100 unit/mL subcutaneous solution (Humalog U-100 Insulin) 100 unit subcut .continuous via insulin pump #90 mL 03/13/22 [Rx Last Taken Unknown] losartan 25 mg tablet 25 mg PO DAILY #30 tabs 03/13/22 [Rx Last Taken Unknown] Allergy/AdvReac Type Severity Reaction Status Date / Time amoxicillin AdvReac Rash Verified 05/12/22 22:05 bupropion [From Wellbutrin] AdvReac Other Verified 05/12/22 22:05 venlafaxine [From Effexor] AdvReac Other Verified 05/12/22 22:05 Family History Grandmother Breast cancer Colon cancer Heart disease High cholesterol Ovarian cancer Uterine cancer Skin cancer Aunt Anxiety Surgical History history of wisdom teeth removal Social History Smoking Status: Never smoker alcohol intake: current alcohol intake frequency: holidays/special occasions only ROS ROS ED ROS Narrative Past medical history: Reviewed Medications: Reviewed Social history: Noncontributory Review of systems: All systems negative except as indicated General: No fever Eyes: No visual changes ENT: No upper airway congestion, normal voice Neck: No neck pain Cardiovascular: No chest pain. She did feel some palpitations and she still feels palpitations even though her heart rates in 80s on the monitor Respiratory: No shortness of breath or cough Gastrointestinal: No abdominal pain no diarrhea. She has some nausea and one episode of vomiting. Genitourinary: No dysuria Musculoskeletal: Denies myalgias no difficulty with ambulation Skin: No rash Neurological: No memory loss, confusion or any focal weakness. Slight headache as in HPI Psych: No recent behavioral changes Hematologic: No easy bleeding or easy bruising EXAM Physical Exam Narrative Exam Narrative: Physical exam General: Well nourished, Well developed, No Acute Distress Head: Normocephalic, Atraumatic Eyes: Conjunctiva not pale ENT: Slightly dry mucous membranes Neck: Supple, Nontender, No lymphadenopathy Cardiovascular: Regular rate, Regular rhythm Respiratory: No distress, CTA bilaterally Abdomen: Soft, Nontender, Nondistended Back: Nontender, Normal Inspection. Negative for: CVA tenderness Extremities: Nontender, No edema Skin: Normal color, No rash Neurological: Alert, Normal Strength, Normal Sensation Psychological: Normal affect Const Vital Signs: 05/12/22 22:02 Temperature 97.4 F L Temperature Source Temporal Pulse Rate 97 Respiratory Rate 16 Blood Pressure 182/91 H Blood Pressure Mean 121 Pulse Ox 98 Oxygen Delivery Method Room Air MDM MDM MDM Narrative Medical decision making narrative: A. Problems addressed Patient has a relatively unremarkable work-up except for hyperglycemia. She is given IV fluids for her dehydration, I addressed the blood sugars likely with the hydration and also she can control it with insulin at home. She is not found to have any palpitations in the emergency department she is not tachycardic and she has a normal rhythm strip in the room. She has a gradual onset headache without any neurological symptoms therefore I do not believe a CT of the head is needed. She improved after hydration, as well as a migraine cocktail. I believe she can be safely discharged home. B. Amount and/or complexity of the data 1. I discussed with patient's significant other who was in the room. CBC CMP urinalysis were ordered interpreted by me 2. Independent interpretation of test Telemetry: Patient is on the monitor, her heart rate is in the 80s without any ectopy. It is sinus rhythm. C. Risk of complications and/or morbidity Differential diagnosis: Headache, I considered subarachnoid but this is a gradual onset of headache, I considered any kind of infectious etiology like meningitis however there is no fever and no nuchal rigidity. Palpitations: I considered any arrhythmia however the monitor shows sinus rhythm. Dehydration: This was addressed. Patient is chronically hyperglycemic based on review of patient's blood sugars in the ED, she was told to follow-up. Lab Data Labs: Laboratory Results - last 24 hr 05/12/22 05/12/22 05/12/22 22:50 22:50 22:53 WBC 6.1 RBC 4.67 Hgb 11.9 L Hct 38.0 MCV 81.4 MCH 25.5 L MCHC 31.3 L RDW Std Deviation 41.3 RDW Coeff of Camila 14.2 Plt Count 233 MPV 11.2 Immature Gran % (Auto) 0.200 Neut % (Auto) 54.2 Lymph % (Auto) 34.8 [place] % (Auto) 7.0 Eos % (Auto) 3.0 Baso % (Auto) 0.8 Absolute Neuts (auto) 3.3 Absolute Lymphs (auto) 2.12 Nucleated RBC % 0 Sodium Potassium Chloride Carbon Dioxide Anion Gap BUN Creatinine Estim Creat Clear Calc Est GFR (MDRD) Af Amer Est GFR (MDRD) Non-Af BUN/Creatinine Ratio Glucose Calcium Total Bilirubin AST ALT Alkaline Phosphatase Total Protein Albumin Globulin Albumin/Globulin Ratio Urine Color Yellow Urine Clarity Clear Urine pH 6.0 Ur Specific [place] 1.020 Urine Protein Negative Urine Glucose (UA) 1000 H Urine Ketones 5 H Urine Occult Blood Negative Urine Nitrite Negative Urine Bilirubin Negative Urine Urobilinogen Normal Ur Leukocyte Esterase Negative Urine RBC 0 SEEN Urine WBC 0 SEEN Ur Squamous Epith Cells 0 SEEN Urine Bacteria 0 SEEN Urine Mucus 0 SEEN Urine Test Negative Acetone Level 05/12/22 05/12/22 22:53 22:53 WBC RBC Hgb Hct MCV MCH MCHC RDW Std Deviation RDW Coeff of Camila Plt Count MPV Immature Gran % (Auto) Neut % (Auto) Lymph % (Auto) [place] % (Auto) Eos % (Auto) Baso % (Auto) Absolute Neuts (auto) Absolute Lymphs (auto) Nucleated RBC % Sodium 141 Potassium 4.0 Chloride 111 H Carbon Dioxide 24.0 Anion Gap 6 BUN 9 Creatinine 0.80 Estim Creat Clear Calc 115.24 Est GFR (MDRD) Af Amer 110 Est GFR (MDRD) Non-Af 91 BUN/Creatinine Ratio 11.2 Glucose 269 H Calcium 8.5 Total Bilirubin 0.20 AST 6 L ALT 14 Alkaline Phosphatase 76 Total Protein 6.7 Albumin 3.5 Globulin 3.2 Albumin/Globulin Ratio 1.1 Urine Color Urine Clarity Urine pH Ur Specific [place] Urine Protein Urine Glucose (UA) Urine Ketones Urine Occult Blood Urine Nitrite Urine Bilirubin Urine Urobilinogen Ur Leukocyte Esterase Urine RBC Urine WBC Ur Squamous Epith Cells Urine Bacteria Urine Mucus Urine Test [place]et[place] Level NEGATIVE Discharge Plan Triage Chief Complaint: General Illness ED Provider: Oleg Jerry Dx/Rx/DC Orders Clinical Impression: Headache, Acute hyperglycemia, Dehydration, Palpitation Instructions: High Blood Sugar (Hyperglycemia), Dehydration Prescriptions: No Action levothyroxine 125 mcg tablet 125 mcg PO DAILY Qty: 90 3RF cholecalciferol (vitamin D3) 50 mcg (2,000 unit) capsule 50 mcg PO DAILY insulin lispro [Humalog U-100 Insulin] 100 unit/mL solution 100 unit SC .continuous Qty: 90 3RF losartan 25 mg tablet 25 mg PO DAILY Qty: 30 5RF Primary Care Provider: Rodrigo Donaldson Referrals: Rodrigo Donaldson MD [Primary Care Provider] - 3-5 Days Disposition Disposition: Home, Self Care
[2022-05-12] MEDS: 0.9% Normal Saline 1,000 ML 1000 ML IV (22:55)
[2022-05-12] MEDS: Ketorolac 15 MG/ML Vial IV (22:55)
[2022-05-12] MEDS: Metoclopramide 10 MG/2 ML Vial 5 MG IV (22:55)
[2022-05-12] MEDS: DiphenhydrAMINE 50 MG/ML Syringe 12.5 MG IV (22:56)
[2022-05-12 22:59] LABS: Bacteria 0 SEEN /hpf (None Seen); Mucous, Urine 0 SEEN /hpf (<or=2+); Red Blood Cells-Urine 0 SEEN /hpf (0-5); Squamous Epithelial Cells - UA 0 SEEN /hpf (5-10); White Blood Cells 0 SEEN /hpf (0-5)
[2022-05-12 23:01] LABS: Absolute Lymphocyte Count 2.12 X10^3/uL (0.83-4.51); Absolute Neutrophil Count 3.3 X10^3/uL (2.0-7.7); Basophil# 0.05 X10^3/uL; Basophil% 0.8 % (0-1); Eosinophil# 0.18 X10^3/uL; Hemoglobin 11.9 g/dL (12.0-15.0); Lymphocyte # 2.12 X10^3/ul (0.83-4.51); Lymphocyte % 34.8 % (19-41); Mean Corp Hgb Conc 31.3 g/dL (32-36); Mean Corpuscular Hgb 25.5 pg (27.0-32.0); Mean Corpuscular Volume 81.4 fL (81-99); Mean Platelet Vol. 11.2 fl (6.2-12.0); Monocyte# 0.43 X10^3/uL; NRBC Flagged by Analyzer 0 % (0-5); Neutrophil # 3.31 X10^3/uL (2.7-7.7); Neutrophil % 54.2 % (47-70); Platelet Count 233 K/mm3 (150-450); RBC Distribution Width CV 14.2 % (11.6-14.6); RBC Distribution Width SD 41.3 fl (35.1-43.9); Red Blood Count 4.67 M/mm3 (4.2-5.4); White Blood Count 6.1 K/mm3 (4.4-11.0)
[2022-05-12 23:02] LABS: Color, Urine Yellow (Yellow); Glucose, Dipstick 1000 mg/dl (Normal); Ketone-Dipstick 5 mg/dl (Negative); Leukocyte Esterase-Dipstick Negative /ul (Negative); Nitrite-Dipstick Negative (Negative); Occult Blood-Urine Negative /ul (Negative); Protein-Dipstick Negative (Negative); Urine Bilirubin Dipstick Negative (Negative); Urine Clarity Clear (Clear); Urine Urobilinogen Normal (Normal)
[2022-05-12 23:09] LABS: Internal QC Validated? YES +Cl - CLEAR BKGD; Pregnancy, Urine Negative Negative
[2022-05-12 23:17] LABS: ALB/GLOB Ratio 1.1 RATIO (0.9-2.4); AST(SGOT) 6 U/L (15-37); Alanine Aminotransfer ALT/SGPT 14 U/L (13-56); Albumin, Serum 3.5 g/dL (3.2-5.0); Alkaline Phosphatase 76 U/L (45-117); Anion Gap 6 (5-15); BUN 9 mg/dL (7-18); BUN/Creat Ratio 11.2 RATIO (10-20); Calcium,Total 8.5 mg/dL (8.5-10.1); Chloride 111 mmol/L (98-107); EST Glomerular Filtration Rate 91 mL/min (>60); Est Glom Filt Rate - Afr Amer 110 mL/min (>60); Estimated Creatinine Clearance 115.24 ml/min; Globulin 3.2 g/dL (2.2-4.2); Glucose 269 mg/dL (74-106); Protein, Total 6.7 g/dL (6.4-8.2); Sodium Level 141 mmol/L (136-145)
== END 2022-05-13 00:02 | disposition home or self-care (01) ==
PROVIDERS: Emergency Provider Emergency Medicine; PCP Family Medicine; Visit Provider Emergency Medicine
DX: R51.9 Headache, unspecified (principal); E10.65 Type 1 diabetes mellitus with hyperglycemia; E86.0 Dehydration; R11.2 Nausea with vomiting, unspecified; R00.2 Palpitations
CPT/HCPCS: 80053; 81001; 81025; 82009; 85025; 96361; 96374; 96375; 99282; J7030; A4216

== ENCOUNTER → 2022-10-09 | Outpatient (CLI) | payer OTHER, SELFPAY ==
[2022-10-09 17:04] LABS: T4 Free Direct 1.87 ng/dL (0.76-1.46); Thyroid Stim Hormone (TSH) 0.65 uIU/mL (0.358-3.74)
[2022-10-09 17:14] LABS: Creatinine, Urine (random) < 13.00 mg/dL (NO RANGE EST.); Microalbumin,Random Urine < 5.0 mg/L (NO RANGE EST.)
[2022-10-09 17:46] LABS: Vitamin D,25 Hydroxy 25.6 ng/mL
== END | disposition home or self-care (01) ==
LOC: BIMLAB 14:38
PROVIDERS: PCP Family Medicine; Visit Provider Internal Medicine Endocrinology, Diabetes & Metabolism
DX: E06.3 Autoimmune thyroiditis (principal); E66.01 Morbid (severe) obesity due to excess calories; Z68.42 Body mass index [BMI] 45.0-49.9, adult; E03.8 Other specified hypothyroidism; R80.9 Proteinuria, unspecified; E55.9 Vitamin D deficiency, unspecified
CPT/HCPCS: 36415; 82043; 82306; 82570; 84439; 84443

== ENCOUNTER 2023-12-17 16:23 | Emergency (ER) | payer OTHER, SELFPAY ==
[2023-12-17 16:23] VITALS: BP 137/85; PULSE 77; RESP 16; TEMP 36.3; O2SAT 97; BMI 56.0
[2023-12-17 18:23] VITALS: BP 106/63; PULSE 94; RESP 20; O2SAT 99
[2023-12-17 18:48] LABS: Bedside Glucose 113 mg/dL (74-106)
--- NOTE | 2023-12-17 18:48 | EX.ED.DYSGE1 ---
HPI History of Present Illness Chief Complaint: Dizziness Informant: patient Onset/Context/Timing Onset: Today Context: Sudden Onset Timing: Continuous Quality: Lightheaded Location: Generalized Worsened by: Nothing Relieved by: Nothing Narrative Narrative: Patient presents with visual changes, dizziness, and headache. Patient states she was at work today when she noted some black spots in her right eye vision. Patient states that this cleared up and then she started having some dizziness and then developed a headache. Patient describes her dizziness as feeling lightheaded. Patient states her headache is sharp and aching. Patient states it is mainly on the left occipital area. Patient states this is starting to improve as well. Patient states she has a prior history of migraines but has not had a migraine headache in a long time. Patient was recently diagnosed with . Patient states she is approximately 9 weeks . [facility] Medical History Vaginal candidiasis Diabetes mellitus type 1 Acute bronchitis, unspecified DKA (diabetic ketoacidoses) Thyroid disease History of pneumonia Irritable bowel syndrome History of migraine history of gastrointestinal problems H/O emotional problems Diabetes History of UTI Home Medications ?Medication ?Instructions ?Recorded ?Last Taken ?Type cholecalciferol (vitamin D3) 50 50 mcg PO DAILY 03/13/22 Unknown History mcg (2,000 unit) capsule multivitamin (Daily Multi-Vitamin 1 tab PO DAILY 07/09/22 Unknown History tablet) levothyroxine 125 mcg tablet 125 mcg PO DAILY #90 tabs 10/15/22 Unknown Rx insulin lispro 100 unit/mL 140 unit (1.4 mL) subcut 12/17/23 Unknown Rx subcutaneous solution (Humalog .continuous via insulin pump #130 U-100 Insulin) mL ondansetron HCl 4 mg tablet 4 mg PO Q8H PRN PRN nausea and 12/17/23 Unknown History vomiting sertraline 100 mg tablet 100 mg PO DAILY 12/17/23 Unknown History Allergy/AdvReac Type Severity Reaction Status Date / Time amoxicillin AdvReac Rash Verified 12/17/23 16:26 bupropion (From Wellbutrin) AdvReac Other Verified 12/17/23 16:26 venlafaxine (From Effexor) AdvReac Other Verified 12/17/23 16:26 Family History Grandmother Breast cancer Colon cancer Heart disease High cholesterol Ovarian cancer Uterine cancer Skin cancer Aunt Anxiety Surgical History history of wisdom teeth removal Social History Smoking Status: Never smoker alcohol intake: current alcohol intake frequency: holidays/special occasions only ROS ROS ED Constitutional Constitutional ED: Denies chills or fever(s) Eyes Eyes: Reports change in vision; Denies blurry vision ENT ENT ED: Denies rhinorrhea or sore throat Cardiovascular Cardiovascular: Denies chest pain or palpitations Respiratory/Chest Respiratory/Chest: Denies cough or dyspnea Gastrointestinal Gastrointestinal: Reports nausea and vomiting Genitourinary Genitourinary ED: Denies dysuria or hematuria Musculoskeletal Musculoskeletal: Denies back pain or neck pain Integumentary Denies abscess or rash Neurologic Neurologic: Reports headache(s); Denies weakness Allergic/Immunologic Allergic/Immunologic ED: Denies mouth swelling or urticaria EXAM Physical Exam Const Vital Signs: 12/17/23 16:23 12/17/23 18:23 12/17/23 20:00 Temperature 97.4 F L Temperature Source Temporal Pulse Rate 77 94 78 Respiratory Rate 16 20 H 16 Blood Pressure 137/85 H 106/63 112/65 Blood Pressure Mean 102 77 80 Pulse Ox 97 99 99 Oxygen Delivery Method Room Air Room Air Positive well nourished and well developed General Appearance ED: well developed and NAD HEENT Reports moist mucous membranes Eyes PERRL and EOMs intact bilaterally Eyes Narrative: There is no nystagmus noted. Neck supple and no JVD General: Negative for tenderness Resp normal respiratory effort and clear to auscultation bilaterally Cardio regular rate and regular rhythm GI non-tender and non-distended Palpation: soft Extremity normal to inspection General Extremety ED: Negative for edema or tenderness General Extremity: Negative for edema Neuro oriented x3, CN's II-XII intact bilaterally and no sensory deficits noted Sensorium / Orientation: alert Motor Exam: strength 5/5 throughout Psych mental status grossly normal MDM MDM MDM Narrative Medical decision making narrative: Differential diagnosis includes -induced hypertension, migraine headache, electrolyte abnormality, urinary tract infection, viral illness, hyperglycemia, hypoglycemia, intracranial bleeding, and tension headache. CT scan of the brain will be obtained to assess for intracranial bleeding. CBC will be obtained to assess for leukocytosis, anemia, and thrombocytopenia. Comprehensive metabolic profile will be obtained to assess for electrolyte abnormality, hepatic function, and renal function. Quantitative hCG will be obtained to assess for . Urinalysis will be obtained to assess for urinary tract infection and hematuria. Lab Data Attestation: I reviewed the patient's lab results. Lab results narrative: CBC was reviewed and was within normal limits. Comprehensive metabolic profile was reviewed and was within normal limits. Quantitative hCG [place] reviewed [place] [id number]. Urinalysis was reviewed. Urine ketones were 150 but there is no evidence of urinary tract infection or hematuria. Labs: Laboratory Results - last 24 hr 12/17/23 12/17/23 12/17/23 18:31 19:10 19:26 WBC 8.0 RBC 4.75 Hgb 11.6 L Hct 37.2 MCV 78.3 L MCH 24.4 L MCHC 31.2 L RDW Std Deviation 42.5 RDW Coeff of Camila 15.0 H Plt Count 253 MPV 10.8 Immature Gran % (Auto) 0.500 Neut % (Auto) 75.5 H Lymph % (Auto) 16.8 L Aurora % (Auto) 5.4 Eos % (Auto) 1.3 Baso % (Auto) 0.5 Absolute Neuts (auto) 6.0 Absolute Lymphs (auto) 1.34 Nucleated RBC % 0 Sodium 136 Potassium 3.4 L Chloride 106 Carbon Dioxide 23.0 Anion Gap 7 BUN 7 Creatinine 0.67 Estim Creat Clear Calc 221.11 Est GFR (MDRD) Af Amer 134 Est GFR (MDRD) Non-Af 110 BUN/Creatinine Ratio 10.4 Glucose 123 H Calcium 9.5 Total Bilirubin 0.50 AST 8 L ALT 19 Alkaline Phosphatase 57 Total Protein 7.2 Albumin 3.4 Globulin 3.8 Albumin/Globulin Ratio 0.9 HCG, Quant 49846 H Urine Color Yellow Urine Clarity Clear Urine pH 6.0 Ur Specific Waterflow 1.015 Urine Protein Negative Urine Glucose (UA) Normal Urine Ketones 150 A* Urine Occult Blood Negative Urine Nitrite Negative Urine Bilirubin Negative Urine Urobilinogen Normal Ur Leukocyte Esterase Negative Urine RBC 0 SEEN Urine WBC 0-5 SEEN Ur Squamous Epith Cells 0 SEEN Urine Bacteria 0 SEEN Urine Mucus 0 SEEN POC Glucose 113 H Radiography Diagnostic Testing: Clinical Impression(s) from Imaging Studies Brain CT 12/17/23 19:00 IMPRESSION: Normal unenhanced CT scan of the brain. Electronically Signed: Vega Marquez MD at 20:19 EDT , CT scan of the brain was obtained. There is no acute intracranial abnormality. This was interpreted by the radiologist and was also independently reviewed by myself. Treatment and Re-Evaluation :: Patient was given IV fluids, Reglan, and Benadryl. Patient was feeling better on reevaluation. Patient was advised of her findings. Patient was instructed to rest in a dark quiet room. Patient was instructed to follow-up with her primary care physician and [employer] in 5 to 7 days. Patient was instructed return if worse in any way. Patient understood and was agreeable with the plan. All questions were answered. Discharge Plan Triage Chief Complaint: Dizziness Other Complaint: Headache ED Provider: Castro Masterson Dx/Rx/DC Orders Clinical Impression: Headache, migraine, First trimester Prescriptions: No Action cholecalciferol (vitamin D3) 50 mcg (2,000 unit) capsule 50 mcg PO DAILY multivitamin [Daily Multi-Vitamin] Tablet 1 tab PO DAILY levothyroxine 125 mcg tablet 125 mcg PO DAILY Qty: 90 3RF ondansetron HCl 4 mg tablet 4 mg PO Q8H PRN PRN (Reason: nausea and vomiting) sertraline 100 mg tablet 100 mg PO DAILY insulin lispro [Humalog U-100 Insulin] 100 unit/mL solution 140 unit SC .continuous Qty: 130 3RF Primary Care Provider: Care Physician,No Primary Referrals: Care Physician,No Primary [Primary Care Provider] - Print Language: Burundian Disposition Disposition: Home, Self Care
--- NOTE | 2023-12-17 19:00 | CT_ITS ---
STUDY: CT BRAIN WITHOUT CONTRAST REASON FOR EXAM: Female, 28 years old. Headache RADIATION DOSAGE (If Supplied By Facility): CTDIvol = ( 44.99 ) mGy, DLP = ( 812.98 ) mGycm TECHNIQUE: Transaxial CT imaging of the brain was performed without administration of intravenous contrast material. Individualized dose optimization techniques were used for this CT. COMPARISON: February 17, 2018 FINDINGS: Normal soft tissue structures. Normal calvarium. Normal size ventricles and extra-axial spaces for the patient''s age. Normal white matter tracts of the cerebral hemispheres. Normal basal ganglia and thalami. Normal brainstem. Normal cerebellum. There is no intracranial hemorrhage. There are no findings of an acute ischemic infarction. Normal visualized paranasal sinuses. CT/Brain/Head without Contrast IMPRESSION: Normal unenhanced CT scan of the brain. Electronically Signed: Vega Marquez MD at 20:19 EDT ,
[2023-12-17] MEDS: 0.9% Normal Saline (1000mL) 1,000 ML 1000 ML IV (19:20)
[2023-12-17] MEDS: DiphenhydrAMINE 50 MG/ML Syringe 25 MG IV (19:20)
[2023-12-17] MEDS: Metoclopramide 10 MG/2 ML Vial IV (19:21)
[2023-12-17 19:31] LABS: Bacteria 0 SEEN /hpf (None Seen); Mucous, Urine 0 SEEN /hpf (<or=2+); Red Blood Cells-Urine 0 SEEN /hpf (0-5); Squamous Epithelial Cells - UA 0 SEEN /hpf (5-10)
[2023-12-17 19:34] LABS: Color, Urine Yellow (Yellow); Glucose, Dipstick Normal (Normal); Leukocyte Esterase-Dipstick Negative /ul (Negative); Nitrite-Dipstick Negative (Negative); Occult Blood-Urine Negative /ul (Negative); Protein-Dipstick Negative (Negative); Specific Gravity, Urine 1.015 (1.002-1.030); Urine Bilirubin Dipstick Negative (Negative); Urine Clarity Clear (Clear); Urine Urobilinogen Normal (Normal)
[2023-12-17 19:34] LABS: Absolute Lymphocyte Count 1.34 X10^3/uL (0.83-4.51); Basophil# 0.04 X10^3/uL; Basophil% 0.5 % (0-1); Eosinophils% 1.3 % (0-5); Hematocrit 37.2 % (37-47); Hemoglobin 11.6 g/dL (12.0-15.0); Lymphocyte # 1.34 X10^3/ul (0.83-4.51); Lymphocyte % 16.8 % (19-41); Mean Corp Hgb Conc 31.2 g/dL (32-36); Mean Corpuscular Hgb 24.4 pg (27.0-32.0); Mean Corpuscular Volume 78.3 fL (81-99); Mean Platelet Vol. 10.8 fl (6.2-12.0); Monocyte# 0.43 X10^3/uL; Monocyte% 5.4 % (0-10); NRBC Flagged by Analyzer 0 % (0-5); Neutrophil # 6.04 X10^3/uL (2.7-7.7); Neutrophil % 75.5 % (47-70); Platelet Count 253 K/mm3 (150-450); RBC Distribution Width SD 42.5 fl (35.1-43.9); Red Blood Count 4.75 M/mm3 (4.2-5.4)
[2023-12-17 19:43] LABS: Ketone-Dipstick 150 mg/dl (Negative)
[2023-12-17 19:51] LABS: White Blood Cells 0-5 SEEN /hpf (0-5)
[2023-12-17 19:55] LABS: ALB/GLOB Ratio 0.9 RATIO (0.9-2.4); AST(SGOT) 8 U/L (15-37); Alanine Aminotransfer ALT/SGPT 19 U/L (13-56); Albumin, Serum 3.4 g/dL (3.2-5.0); Alkaline Phosphatase 57 U/L (45-117); Anion Gap 7 (5-15); BUN 7 mg/dL (7-18); BUN/Creat Ratio 10.4 RATIO (10-20); Calcium,Total 9.5 mg/dL (8.5-10.1); Chloride 106 mmol/L (98-107); Creatinine, Serum 0.67 mg/dL (0.55-1.02); EST Glomerular Filtration Rate 110 mL/min (>60); Est Glom Filt Rate - Afr Amer 134 mL/min (>60); Estimated Creatinine Clearance 221.11 ml/min; Globulin 3.8 g/dL (2.2-4.2); Glucose 123 mg/dL (74-106); Potassium 3.4 mmol/L (3.5-5.1); Protein, Total 7.2 g/dL (6.4-8.2); Sodium Level 136 mmol/L (136-145)
[2023-12-17 20:00] VITALS: BP 112/65; PULSE 78; RESP 16; O2SAT 99
[2023-12-17 20:22] LABS: hCG Titer Quant., Serum 50804 mIU/mL (1-3)
[2023-12-17 20:52] VITALS: BP 110/62; PULSE 79; RESP 16; TEMP 36.6; O2SAT 99
== END 2023-12-17 20:55 | disposition home or self-care (01) ==
PROVIDERS: Emergency Provider Emergency Medicine; Visit Provider Emergency Medicine
DX: O99.351 Diseases of the nervous system complicating pregnancy, first trimester (principal); Z79.4 Long term (current) use of insulin; G43.909 Migraine, unspecified, not intractable, without status migrainosus; O24.011 Pre-existing type 1 diabetes mellitus, in pregnancy, first trimester; Z79.899 Other long term (current) drug therapy; Z3A.09 9 weeks gestation of pregnancy
CPT/HCPCS: 70450; 80053; 81001; 82962; 84702; 85025; 96361; 96374; 96375; 99284; J7030; A4216

== ENCOUNTER → 2024-01-01 | Outpatient (CLI) | payer OTHER, SELFPAY ==
[2024-01-01 13:56] LABS: Absolute Lymphocyte Count 1.26 X10^3/uL (0.83-4.51); Absolute Neutrophil Count 4.6 X10^3/uL (2.0-7.7); Basophil# 0.04 X10^3/uL; Basophil% 0.6 % (0-1); Eosinophils% 1.6 % (0-5); Hematocrit 38.9 % (37-47); Hemoglobin 12.4 g/dL (12.0-15.0); Lymphocyte # 1.26 X10^3/ul (0.83-4.51); Lymphocyte % 19.8 % (19-41); Mean Corp Hgb Conc 31.9 g/dL (32-36); Mean Corpuscular Hgb 24.6 pg (27.0-32.0); Monocyte# 0.37 X10^3/uL; Monocyte% 5.8 % (0-10); NRBC Flagged by Analyzer 0 % (0-5); Neutrophil # 4.56 X10^3/uL (2.7-7.7); Neutrophil % 71.7 % (47-70); Platelet Count 269 K/mm3 (150-450); RBC Distribution Width CV 14.8 % (11.6-14.6); RBC Distribution Width SD 40.8 fl (35.1-43.9); Red Blood Count 5.05 M/mm3 (4.2-5.4); White Blood Count 6.4 K/mm3 (4.4-11.0)
[2024-01-01 14:23] LABS: ALB/GLOB Ratio 0.8 RATIO (0.9-2.4); AST(SGOT) 8 U/L (15-37); Alanine Aminotransfer ALT/SGPT 15 U/L (13-56); Albumin, Serum 3.4 g/dL (3.2-5.0); Alkaline Phosphatase 57 U/L (45-117); Anion Gap 9 (5-15); BUN 5 mg/dL (7-18); BUN/Creat Ratio 8.6 RATIO (10-20); Calcium,Total 9.5 mg/dL (8.5-10.1); Chloride 107 mmol/L (98-107); Cholesterol 189 mg/dL (200); Creatinine, Serum 0.58 mg/dL (0.55-1.02); EST Glomerular Filtration Rate 131 mL/min (>60); Est Glom Filt Rate - Afr Amer 158 mL/min (>60); Globulin 4.1 g/dL (2.2-4.2); Glucose 127 mg/dL (74-106); High Density Lipoprotein 65 mg/dL; Potassium 3.7 mmol/L (3.5-5.1); Protein, Total 7.5 g/dL (6.4-8.2); Sodium Level 136 mmol/L (136-145); T4 Free Direct 1.42 ng/dL (0.76-1.46); Triglycerides 120 mg/dL; Very Low Density Lipoprotein 24 mg/dL (5-40)
[2024-01-01 14:38] LABS: Hemoglobin A1c 5.6 % (3.8-5.6)
[2024-01-01 15:00] LABS: Microalbumin,Random Urine 15.2 mg/L (NO RANGE EST.)
[2024-01-01 15:15] LABS: HIV - WCH Non-Reactive (Nonreactive); Hepatitis B Surface Antigen Non-Reactive (Nonreactive); Hepatitis C Antibody Non-Reactive (Nonreactive); Rubella IgG Reactive (Nonreactive); Syphilis Antibodies Non-reactive; Vitamin D,25 Hydroxy 14.2 ng/mL
[2024-01-01 16:27] LABS: Protein, Urine (Random) 63.2 mg/dL (<11.9); Protein:Creat Ratio 475 mg/g CRE (0-200)
== END | disposition home or self-care (01) ==
PROVIDERS: PCP Family Medicine; Referring Provider Obstetrics & Gynecology; Visit Provider Obstetrics & Gynecology
DX: O99.210 Obesity complicating pregnancy, unspecified trimester (principal); E10.29 Type 1 diabetes mellitus with other diabetic kidney complication; E03.8 Other specified hypothyroidism; E06.3 Autoimmune thyroiditis; R80.9 Proteinuria, unspecified; Z3A.00 Weeks of gestation of pregnancy not specified; O99.280 Endocrine, nutritional and metabolic diseases complicating pregnancy, unspecified trimester
CPT/HCPCS: 80053; 80061; 82043; 82306; 82570; 83036; 84156; 84439; 84443; 85025; 86703; 86762; 86780; 86803; 86850; 86900; 86901; 87086; 87088; 87340

== ENCOUNTER → 2024-01-08 | Outpatient (CLI) | payer OTHER, SELFPAY ==
--- NOTE | 2024-01-08 10:43 | US_ITS ---
STUDY: ULTRASOUND BREAST - RIGHT REASON FOR EXAM: Female, 28 years old. Palpable lump in the right breast. TECHNIQUE: Axial and longitudinal images of the RIGHT breast were performed with a high resolution ultrasound transducer. # OF IMAGES: 33 COMPARISON: None. FINDINGS: RIGHT Breast: In the lower outer quadrant of the right breast was examined with ultrasound. There is evidence of dense fibroglandular tissue. No sonographic abnormality is seen. US/Breast Limited Unilateral IMPRESSION: No sonographic abnormality is seen. ASSESSMENT CATEGORY: BIRADS Category 1: Negative. A letter regarding these results will be sent to the patient by the facility within 30 days. Electronically Signed: Bharath Garcia MD at 11:54 EDT ,
== END | disposition home or self-care (01) ==
LOC: OPBI 10:42
PROVIDERS: PCP Family Medicine; Referring Provider Obstetrics & Gynecology; Visit Provider Obstetrics & Gynecology
DX: N63.10 Unspecified lump in the right breast, unspecified quadrant (principal)
CPT/HCPCS: 76642

== ENCOUNTER → 2024-01-22 | Outpatient (CLI) | payer OTHER, SELFPAY ==
[2024-01-22 14:03] LABS: ALB/GLOB Ratio 0.8 RATIO (0.9-2.4); AST(SGOT) 12 U/L (15-37); Alanine Aminotransfer ALT/SGPT 20 U/L (13-56); Alkaline Phosphatase 54 U/L (45-117); Anion Gap 5 (5-15); BUN 4 mg/dL (7-18); BUN/Creat Ratio 6.7 RATIO (10-20); Calcium,Total 9.3 mg/dL (8.5-10.1); Chloride 108 mmol/L (98-107); EST Glomerular Filtration Rate 127 mL/min (>60); Est Glom Filt Rate - Afr Amer 153 mL/min (>60); Globulin 3.8 g/dL (2.2-4.2); Glucose 136 mg/dL (74-106); Potassium 3.9 mmol/L (3.5-5.1); Protein, Total 6.8 g/dL (6.4-8.2); Sodium Level 135 mmol/L (136-145); T4 Free Direct 1.17 ng/dL (0.76-1.46)
== END | disposition home or self-care (01) ==
PROVIDERS: PCP Family Medicine; Referring Provider Obstetrics & Gynecology; Visit Provider Obstetrics & Gynecology
DX: O99.280 Endocrine, nutritional and metabolic diseases complicating pregnancy, unspecified trimester (principal); E10.22 Type 1 diabetes mellitus with diabetic chronic kidney disease; E10.29 Type 1 diabetes mellitus with other diabetic kidney complication; Z31.430 Encounter of female for testing for genetic disease carrier status for procreative management; O99.210 Obesity complicating pregnancy, unspecified trimester; Z3A.00 Weeks of gestation of pregnancy not specified; O24.019 Pre-existing type 1 diabetes mellitus, in pregnancy, unspecified trimester; E03.8 Other specified hypothyroidism; E06.3 Autoimmune thyroiditis; O12.10 Gestational proteinuria, unspecified trimester
CPT/HCPCS: 36415; 80053; 84439; 84443

== ENCOUNTER → 2024-01-29 | Outpatient (CLI) | payer OTHER, SELFPAY | END | disposition home or self-care (01) | LOC: PSN 08:40 | PROVIDERS: PCP Family Medicine; Referring Provider Obstetrics & Gynecology; Visit Provider Obstetrics & Gynecology | DX: Z34.90 Encounter for supervision of normal pregnancy, unspecified, unspecified trimester (principal) | CPT/HCPCS: 93005 ==

== ENCOUNTER → 2024-02-21 | Outpatient (CLI) | payer OTHER, SELFPAY ==
[2024-02-21 16:16] LABS: T4 Free Direct 1.22 ng/dL (0.76-1.46)
== END | disposition home or self-care (01) ==
PROVIDERS: Nurse Practitioner Women's Health; PCP Family Medicine; Referring Provider Internal Medicine Endocrinology, Diabetes & Metabolism; Visit Provider Internal Medicine Endocrinology, Diabetes & Metabolism
DX: O99.281 Endocrine, nutritional and metabolic diseases complicating pregnancy, first trimester (principal); E03.8 Other specified hypothyroidism; E06.3 Autoimmune thyroiditis; Z3A.11 11 weeks gestation of pregnancy
CPT/HCPCS: 36415; 84439; 84443

== ENCOUNTER → 2024-03-18 | Outpatient (CLI) | payer OTHER, SELFPAY ==
--- NOTE | 2024-03-18 15:14 | US_ITS ---
STUDY: SECOND AND THIRD TRIMESTER OBSTETRICAL ULTRASOUND REASON FOR EXAM: Female, 28 years old anatomy scan LMP: October 23, 2023. TECHNIQUE: Transabdominal and Transvaginal TECHNICAL QUALITY: Adequate. PRIOR ULTRASOUND: None. FINDINGS: There is a single intrauterine fetus. The fetus is in a cephalic presentation. There is demonstrated cardiac activity with a heart rate of 150 bpm. There is a normal amniotic fluid volume. The largest amniotic fluid pocket measures 4.6 cm. The amniotic fluid index (ISA) is within normal limits. The placenta is anterior and fundal in location and is not low lying. There are Grade 0 placental changes. The cervix measures 4.3 cm in length. The adnexal regions are not visualized. BIOMETRY: BPD: 5.25 cm: 22 weeks, 0 days: 83% HC: 18.94 cm: 21 weeks, 2 days: 51% AC: 17.94 cm: 22 weeks, 6 days: 91% FL: 3.74 cm: 22 weeks, 0 days: 73% CI: 80% FL/BPD: 71% FL/HC: 20% FL/AC: 21% HC/AC: 1.06 age by current US: 21 weeks, 4 days. EVELIN by current US: July 25, 2024. Estimated weight: 501 grams, +/- 75 grams, 97 %. Age by LMP: 21 weeks, 0 days. EVELIN by LMP: July 29, 2024. ANATOMY: Gender: Male Cranium: Normal lateral ventricles. Normal choroid plexus. Normal cerebellum. Normal cisterna magna. Normal face, nose and lips. Chest: Normal 4-chamber heart. Abdomen/Pelvis: Normal diaphragm. Normal stomach. Normal abdominal wall. Normal cord insertion. Normal 3 vessel cord. Normal kidneys. Normal bladder. Spine: Normal cervical spine. Normal thoracic spine. Normal lumbar spine. Normal sacrum. Extremities: Normal bilateral upper extremities. Normal bilateral lower extremities. IMPRESSION: Single live uterine gestation with a mean gestational age of 21 weeks and 4 days. Electronically Signed: Bharath Garcia MD at 13:19 EST , STUDY: FIRST TRIMESTER OBSTETRICAL ULTRASOUND REASON FOR EXAM: Female, 28 years old . Cervical length. LMP: October 23, 2023. TECHNIQUE: Transvaginal TECHNICAL QUALITY: Adequate. PRIOR ULTRASOUND: None. FINDINGS: Cervical length measures 4.3 cm US/OB Anatomy w/ Transvaginal IMPRESSION: Cervical length measures 4.3 cm. Electronically Signed: Bharath Garcia MD at 13:20 EST ,
== END | disposition home or self-care (01) ==
LOC: US 15:10
PROVIDERS: PCP Family Medicine; Referring Provider Nurse Practitioner Women's Health; Visit Provider Nurse Practitioner Women's Health
DX: O09.92 Supervision of high risk pregnancy, unspecified, second trimester (principal); Z3A.00 Weeks of gestation of pregnancy not specified
CPT/HCPCS: 76805; 76817

== ENCOUNTER → 2024-05-06 | Outpatient (CLI) | payer OTHER, SELFPAY ==
[2024-05-06 10:18] LABS: Absolute Lymphocyte Count 1.71 X10^3/uL (0.83-4.51); Absolute Neutrophil Count 5.6 X10^3/uL (2.0-7.7); Basophil# 0.03 X10^3/uL; Basophil% 0.4 % (0-1); Eosinophil# 0.16 X10^3/uL; Hematocrit 33.1 % (37-47); Hemoglobin 10.6 g/dL (12.0-15.0); Lymphocyte # 1.71 X10^3/ul (0.83-4.51); Lymphocyte % 21.4 % (19-41); Mean Corpuscular Hgb 25.1 pg (27.0-32.0); Mean Corpuscular Volume 78.4 fL (81-99); Mean Platelet Vol. 10.8 fl (6.2-12.0); Monocyte# 0.48 X10^3/uL; NRBC Flagged by Analyzer 0 % (0-5); Neutrophil # 5.55 X10^3/uL (2.7-7.7); Neutrophil % 69.4 % (47-70); Platelet Count 249 K/mm3 (150-450); RBC Distribution Width CV 14.6 % (11.6-14.6); RBC Distribution Width SD 40.8 fl (35.1-43.9); Red Blood Count 4.22 M/mm3 (4.2-5.4)
[2024-05-06 10:55] LABS: T4 Free Direct 1.17 ng/dL (0.76-1.46)
[2024-05-06 11:12] LABS: HIV - WCH Non-Reactive (Nonreactive); Syphilis Antibodies Non-reactive
== END | disposition home or self-care (01) ==
LOC: LAB 09:23
PROVIDERS: Nurse Practitioner Family; PCP Family Medicine; Referring Provider Obstetrics & Gynecology; Visit Provider Obstetrics & Gynecology
DX: O09.92 Supervision of high risk pregnancy, unspecified, second trimester (principal); O99.280 Endocrine, nutritional and metabolic diseases complicating pregnancy, unspecified trimester; E03.8 Other specified hypothyroidism; E06.3 Autoimmune thyroiditis; Z3A.00 Weeks of gestation of pregnancy not specified
CPT/HCPCS: 36415; 84439; 84443; 85025; 86703; 86780

== ENCOUNTER → 2024-05-20 | Outpatient (CLI) | payer OTHER, SELFPAY ==
[2024-05-20 12:18] LABS: Protein, Urine (Random) 18.3 mg/dL (<11.9); Protein:Creat Ratio 196 mg/g CRE (0-200)
[2024-05-20 12:20] LABS: Absolute Neutrophil Count 6.2 X10^3/uL (2.0-7.7); Basophil# 0.04 X10^3/uL; Basophil% 0.5 % (0-1); Eosinophil# 0.12 X10^3/uL; Eosinophils% 1.4 % (0-5); Hematocrit 34.7 % (37-47); Hemoglobin 10.9 g/dL (12.0-15.0); Lymphocyte % 19.8 % (19-41); Mean Corp Hgb Conc 31.4 g/dL (32-36); Mean Corpuscular Hgb 24.6 pg (27.0-32.0); Mean Corpuscular Volume 78.3 fL (81-99); Mean Platelet Vol. 10.8 fl (6.2-12.0); Monocyte# 0.51 X10^3/uL; Monocyte% 5.9 % (0-10); NRBC Flagged by Analyzer 0 % (0-5); Neutrophil # 6.18 X10^3/uL (2.7-7.7); Neutrophil % 71.9 % (47-70); Platelet Count 270 K/mm3 (150-450); RBC Distribution Width CV 14.6 % (11.6-14.6); RBC Distribution Width SD 40.8 fl (35.1-43.9); Red Blood Count 4.43 M/mm3 (4.2-5.4); White Blood Count 8.6 K/mm3 (4.4-11.0)
[2024-05-20 12:23] LABS: ALB/GLOB Ratio 0.6 RATIO (0.9-2.4); AST(SGOT) 11 U/L (15-37); Alanine Aminotransfer ALT/SGPT 13 U/L (13-56); Albumin, Serum 2.6 g/dL (3.2-5.0); Alkaline Phosphatase 76 U/L (45-117); Anion Gap 8 (5-15); BUN 6 mg/dL (7-18); Calcium,Total 9.1 mg/dL (8.5-10.1); Chloride 104 mmol/L (98-107); Creatinine, Serum 0.66 mg/dL (0.55-1.02); EST Glomerular Filtration Rate 112 mL/min (>60); Est Glom Filt Rate - Afr Amer 135 mL/min (>60); Globulin 4.2 g/dL (2.2-4.2); Glucose 125 mg/dL (74-106); Potassium 3.7 mmol/L (3.5-5.1); Protein, Total 6.8 g/dL (6.4-8.2); Sodium Level 136 mmol/L (136-145); Uric Acid 3.1 mg/dL (2.6-6.0)
== END | disposition home or self-care (01) ==
LOC: BWCLAB 08:59
PROVIDERS: PCP Family Medicine; Referring Provider Advanced Practice Midwife; Visit Provider Advanced Practice Midwife
DX: O16.9 Unspecified maternal hypertension, unspecified trimester (principal); Z3A.00 Weeks of gestation of pregnancy not specified
CPT/HCPCS: 36415; 80053; 82570; 84156; 84550; 85025

== ENCOUNTER 2024-06-02 11:02 | Outpatient (CLI) | payer OTHER, SELFPAY ==
[2024-06-02 11:06] VITALS: BMI 53.6
[2024-06-02 11:18] VITALS: BP 130/63; PULSE 106
[2024-06-02 11:19] VITALS: RESP 17; TEMP 36.3; O2SAT 98
--- NOTE | 2024-06-02 12:04 | OB.TRI.HP_ITS ---
HPI - General HPI Narrative KATHERINE OCASIO, is a 28 y/o @ 31 weeks 6 days who presents to L&D for NST for diabetes and obesity in . Maternal Data Information EVELIN Calculator Estimated Delivery Date Method Current WG Current Estimate 07/29/24 Ultrasound #1 32w 1d Other Estimates 07/22/24 LMP (Certain) 33w 1d [facility] Medical History Type 1 diabetes mellitus in second trimester, antepartum Vaginal candidiasis Diabetes mellitus type 1 Acute bronchitis, unspecified DKA (diabetic ketoacidoses) Thyroid disease History of pneumonia Irritable bowel syndrome History of migraine history of gastrointestinal problems H/O emotional problems Diabetes History of UTI Home Medications ?Medication ?Instructions ?Recorded ?Last Taken ?Type cholecalciferol (vitamin D3) 50 50 mcg PO DAILY 06/01/24 20:09 History mcg (2,000 unit) capsule sertraline 100 mg tablet 100 mg PO DAILY 12/17/2306/23 20:00 History folic acid 1 mg tablet 1 mg PO QDAY 12/25/23 20:10 History multivitamin no.47-iron fum 27 1 cap PO DAILY pregnanc y 12/25/23 06/01/24 20:00 History mg-folate no.1 1 mg-dha 300 mg capsule (PNV-DHA) aspirin 81 mg chewable tablet 81 mg PO QDAY 01/29/24 0 06/01/24 20:09 History (Capri Chewable Low Dose Aspirin) Humalog KwikPen Insulin 200 200 unit subcut QDAY #90 m L 03/19/24 06/02/24 Rx unit/mL (3 mL) subcutaneous (insulin lispro) pen needle, diabetic 32 gauge x #100 ea 04/20/24 Unkno wn Rx (BD Ultra-Fine Yessica Pen Needle) levothyroxine 125 mcg tablet See Rx Instructions PO .C OMPLEX 05/20/24 06/02/24 07:10 History Allergy/AdvReac Type Severity Reaction Status Date / Time amoxicillin AdvReac Rash Verified 06/02/24 11:09 bupropion (From Wellbutrin) AdvReac Other Verified 06/02/24 11:09 venlafaxine (From Effexor) AdvReac Other Verified 06/02/24 11:09 Family History Grandmother Breast cancer Colon cancer Heart disease High cholesterol Ovarian cancer Uterine cancer Skin cancer Aunt Anxiety Surgical History history of wisdom teeth removal Social History adopted: No household members: spouse current occupational status: employed current occupation: [employer] pets and animals: Yes (Avoid litter box) pets and animals: cat(s) and dog(s) history of recent travel: Yes (September) out of state: Yes out of country: No sexually active: Yes Smoking Status: Never smoker alcohol intake: former year quit: 2021 substance use type: does not use well-balanced diet: about half the time caffeine: No eating out: 1-3 times/week during the past year weight has: increased > 10 lbs what type of physical activity do you participate in: walking frequency: 1-2 times per week duration: 15-30 minutes/day katelynn/denominational: Buddhism seatbelt use: always do you feel safe at home: Yes 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 History 1 Elective abortions Hx Para 0 Spontaneous abortions Hx # Term Pregnancies Ectopic pregnancies Hx # Pregnancies Multiple births # of living children Visit Details Expected Delivery Route/Plan Labor Preferences- CB/BF classes: no labor support person: yi labor intervention preferences: [] pain management options preferred: epidural cut cord/dad catch: cord : yes PP control planned: discussed discussed possible routes of delivery and associated risks: [] special requests: [] Plans Covid status: [] Flu vaccine: w/employer Tdap vaccine: given Rhogam: na LARC form signed: yes Problem list reviewed and updated with the most current plan of care details and appropriate orders placed. Relevant counseling for the gestational age provided. Continue routine care and follow up unless otherwise noted in visit notes/problem list details OB Flowsheet Initial Weight: Not Recorded Date -?-?-?-?-?-?-?-?-?-?-?-?- EGA Weight BP Urine Prot -?-?-?-?-?-?-?-?-?-?-?-?- Glucose FHR FuHt Pres Dilation -?-?-?-?-?-?-?-?-?-?-?-?- Effaced St Visit Note 01/01/24 -?-?-?-?-?-?-?-?-?-?-?-?- 10w 0d 382 lb 131/83 -?-?-?-?-?-?-?-?-?-?-?-?- 170 -?-?-?-?-?-?-?-?-?-?-?-?- SM- CRL 3.16cm n ot cons with LMP no vb cramping 01/29/24 -?-?-?-?-?-?-?-?-?-?-?-?- 14w 0d 381 lb 6 oz 122/83 Nega tive -?-?-?-?-?-?-?-?-?-?-?-?- Negative 153 -?-?-?-?-?-?-?-?-?-?-?-?- MH-No VB. gluco se well controlled. Dr Borden increased synthroid and will recheck in 6 weeks. Plans to repeat NIPT in 2 wk and will do AFP then. Echo ordered 22-24 wk. Anatomy w/[facility] US 02/24/24 -?-?-?-?-?-?-?-?-?-?-?-?- 17w 5d 374 lb 124/80 Negative -?-?-?-?-?-?-?-?-?-?-?-?- Negative 150 -?-?-?-?-?-?-?-?-?-?-?-?- KW- no vb/lof/ct x. good fm. has echo and US scheduled. Dr Borden managing TSH and BS. doing well. discussed third trimester testing. 03/18/24 -?-?-?-?-?-?-?-?-?-?-?-?- 21w 0d 377 lb 6 oz 125/84 Nega tive -?-?-?-?-?-?-?-?-?-?-?-?- 1000 g/dL 150 -?-?-?-?-?-?-?-?-?-?-?-?- SM- no vb lof go od fm no regular ctx. 04/15/24 -?-?-?--?-?-?-?-?-?-?-?-?- 25w 0d 378 lb 6 oz 115/79 Trac e -?-?-?-?-?-?-?-?-?-?-?-?- Negative 145 -?-?-?-?-?-?-?-?-?-?-?-?- JV- no lof, vagi nal bleeding, or dec fm. pt now on u-[address] Borden through her pump. Levels are better controlled on this and she doesn't have to change her site as often. normal echo report on chart today. 04/20/24 -?-?-?-?-?-?-?-?-?-?-?-?- 25w 5d 379 lb 122/71 -?-?-?-?-?-?-?-?-?-?-?-?- 150 -?-?-?-?-?-?-?-?-?-?-?-?- KW- no vb/lof/ct x. heartbeat check today for some decreased FM. heard movement on doppler and FHR easily found. 05/06/24 -?-?-?-?-?-?-?-?-?-?-?-?- 28w 0d 381 lb 4 oz 124/82 Nega tive -?-?-?-?-?-?-?-?-?-?-?-?- Negative 136 32 -?-?-?-?-?-?-?-?-?-?-?-?- MH-No VB, LOF. g ood FM. Larc, tdap. 05/20/24 -?-?-?-?-?-?-?-?-?-?-?-?- 30w 0d 379 lb 138/84 Negative -?-?-?-?-?-?-?-?-?-?-?-?- Negative 145 36 -?-?-?-?-?-?-?-?-?-?-?-?- KW- no vb/lof/ct x. good fm. elevated bp today-pre e labs KW- no vb/lof/ctx. good fm. elevated bp today-pre e labs. has growth US and NSTs scheduled ROS Constitutional Constitutional: Reports systems reviewed and no addt'l complaints, except as documented Gastrointestinal Gastrointestinal: Denies bloating, constipation, cramping, diarrhea, nausea or vomiting Genitourinary Genitourinary: Reports other Details: Denies vaginal odor, vaginal bleeding, or vaginal discharge ; Denies difficulty urinating or flank pain NST FHR Rate Baby A Baseline: 140 Variability:: Moderate Accelerations:: 15 x 15 Decelerations:: None NST Reactive:: Yes FHR Category:: Category I Assessment & Plan (1) Large for gestational age fetus affecting management of mother: (2) Elevated blood pressure affecting , antepartum: (3) Anemia affecting : COMMENT: Add FE. Recheck 4 wk (4) Type 1 diabetes mellitus in second trimester, antepartum: COMMENT: follows with Dr Borden. pump in place. (5) Modified White class B pregestational diabetes mellitus: COMMENT: baseline labs, ekg. che borden. has baseline proteinuria. neg AFP screen, echo at 22-24 weeks/normal. declines NT. has insulin pump. 32wk:growth US q4w and twice wkly NST (6) Obesity affecting : QUALIFIERS: Trimester: second trimester Obesity type affecting : unspecified obesity Qualified Code(s): O99.212 - Obesity complicating , second trimester (7) Anxiety and depression: COMMENT: sertraline: stable (8) Supervision of high-risk : QUALIFIERS: Trimester: third trimester Qualified Code(s): O09.93 - Supervision of high risk , unspecified, third trimester COMMENT: PRR , EVELIN 07/29/24, boy Peter David (9) : QUALIFIERS: Weeks of gestation: 30 weeks Qualified Code(s): Z3A.30 - 30 weeks gestation of COMMENT: nl anatomy US WC (WP nurse). echo ordered. APF neg. NIPT low risk. 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 ok to dc Charges/Coding Multi Select Codes Urinary/Genital Urinary/Genital CPT Codes: 85632-99 non-stress test Interp
== END 2024-06-02 12:05 | disposition home or self-care (01) ==
LOC: WPOUT 11:06 → WP 11:06
PROVIDERS: PCP Family Medicine; Referring Provider Obstetrics & Gynecology; Visit Provider Obstetrics & Gynecology
DX: O24.013 Pre-existing type 1 diabetes mellitus, in pregnancy, third trimester (principal); Z79.4 Long term (current) use of insulin; O99.213 Obesity complicating pregnancy, third trimester; Z3A.31 31 weeks gestation of pregnancy; O36.63X0 Maternal care for excessive fetal growth, third trimester, not applicable or unspecified; O99.283 Endocrine, nutritional and metabolic diseases complicating pregnancy, third trimester; E06.3 Autoimmune thyroiditis; O99.891 Other specified diseases and conditions complicating pregnancy; R03.0 Elevated blood-pressure reading, without diagnosis of hypertension; O99.343 Other mental disorders complicating pregnancy, third trimester; F32.A Depression, unspecified; F41.9 Anxiety disorder, unspecified; E55.9 Vitamin D deficiency, unspecified; Z96.41 Presence of insulin pump (external) (internal); Z79.82 Long term (current) use of aspirin; Z79.890 Hormone replacement therapy; Z79.899 Other long term (current) drug therapy
CPT/HCPCS: 59025; 99221; G0378

== ENCOUNTER → 2024-06-03 | Outpatient (CLI) | payer OTHER, SELFPAY ==
--- NOTE | 2024-06-03 09:49 | US_ITS ---
PROCEDURE: OB LIMITED WITH BIOMETRICS REASON FOR EXAM: growth. COMPARISON: None. FINDINGS Number: 1 Position: Vertex Placental Position: Anterior and not low-lying. Placental Abnormalities: None. DIMENSIONS: Biparietal Diameter: 8.6 cm: 34 weeks and 5 days: 96.8 percentile/ Head Circumference: 30.95 cm: 34 weeks and 4 days: 80.5 percentile/ Abdominal Circumference: 31.06 cm: 35 weeks and 0 days: 99th percentile/ Femur Length: 6.27 cm: 32 weeks and 3 days: 49.3 percentile/ ESTIMATED WEIGHT: 2407+/-361 g ESTIMATED WEIGHT PERCENTILE (24+ weeks): 96 ESTIMATED GESTATIONAL AGE: Baseline: 32 weeks and 0 days By Ultrasound: 32 weeks and 4 days ESTIMATED DATE OF DELIVERY: Baseline: July 29, 2024 By Ultrasound: July 25, 2024 BIOPHYSICAL ASSESSMENT: Amniotic Fluid Volume: Subjectively normal. Amniotic Fluid Index: 23.5 (8-24 cm normal range) Cardiac Motion: 143 beats per minute (average) Trunk and Limb Motion: Present. MATERNAL ANATOMY: Adnexa: Neither maternal ovary is successfully identified. Cervical Length (if measured): 4.5 cm US/OB Limited With Biometrics IMPRESSION: Single live intrauterine gestation with a mean gestational age of 32 weeks and 4 days. The measurements obtained today fall within normal expected range. Reading Location: [id number]
== END | disposition home or self-care (01) ==
LOC: US 09:48
PROVIDERS: PCP Family Medicine; Referring Provider Nurse Practitioner Women's Health; Visit Provider Nurse Practitioner Women's Health
DX: O24.313 Unspecified pre-existing diabetes mellitus in pregnancy, third trimester (principal); Z3A.32 32 weeks gestation of pregnancy
CPT/HCPCS: 76816

== ENCOUNTER 2024-06-16 09:35 | Outpatient (CLI) | payer OTHER, SELFPAY ==
[2024-06-16 09:50] VITALS: RESP 16; TEMP 36.2
[2024-06-16 09:53] VITALS: BP 138/62; PULSE 90
--- NOTE | 2024-06-16 10:00 | US_ITS ---
PROCEDURE: BIOPHYSICAL PROF W/O NON STRES REASON FOR EXAM: NON-REACTIVE NST IN OFFICE TECHNIQUE: Biophysical profile was performed. COMPARISON: Comparison is made with prior study dated June 03, 2024 FINDINGS: position: Cephalic heart rate: 153 beats per minute Amniotic fluid: Within normal limits. Largest fluid pocket: 3.9 cm Amniotic fluid index: 11.3 Placenta location: Anterior and not low-lying. Biophysical profile: Breathing movements: 2 Gross body movements: 2 tone: 2 amniotic fluid volume: 2 Total score: 8/8 US/Biophysical Prof W/O Non Stres IMPRESSION: Normal biophysical profile of 8/8 Reading Location: [facility]
[2024-06-16 10:58] VITALS: BMI 55.0
--- NOTE | 2024-06-16 12:55 | OB.TRI.HP_ITS ---
HPI - General HPI Narrative KATHERINE OCASIO, is a 29 F who presents to L&D for an nst/bpp due to a non-reactive NST in the office. Maternal Data Information EVELIN Calculator Estimated Delivery Date Method Current WG Current Estimate 07/29/24 Ultrasound #1 33w 6d Other Estimates 07/22/24 LMP (Certain) 34w 6d [facility] Medical History Type 1 diabetes mellitus in second trimester, antepartum Vaginal candidiasis Diabetes mellitus type 1 Acute bronchitis, unspecified DKA (diabetic ketoacidoses) Thyroid disease History of pneumonia Irritable bowel syndrome History of migraine history of gastrointestinal problems H/O emotional problems Diabetes History of UTI Home Medications ?Medication ?Instructions ?Recorded ?Last Taken ?Type cholecalciferol (vitamin D3) 50 50 mcg PO DAILY 06/01/24 20:09 History mcg (2,000 unit) capsule sertraline 100 mg tablet 100 mg PO DAILY 12/17/2306/23 20:00 History folic acid 1 mg tablet 1 mg PO QDAY 12/25/23 20:10 History multivitamin no.47-iron fum 27 1 cap PO DAILY pregnanc y 12/25/23 06/01/24 20:00 History mg-folate no.1 1 mg-dha 300 mg capsule (PNV-DHA) aspirin 81 mg chewable tablet 81 mg PO QDAY 01/29/24 0 06/01/24 20:09 History (Capri Chewable Low Dose Aspirin) Humalog KwikPen Insulin 200 200 unit subcut QDAY #90 m L 03/19/24 06/02/24 Rx unit/mL (3 mL) subcutaneous (insulin lispro) pen needle, diabetic 32 gauge x #100 ea 04/20/24 Unkno wn Rx (BD Ultra-Fine Yessica Pen Needle) levothyroxine 125 mcg tablet See Rx Instructions PO .C OMPLEX 05/20/24 06/02/24 07:10 History nitrofurantoin 100 mg PO BID 7 days #14 cap s 06/16/24 Unknown Rx monohydrate/macrocrystals 100 mg capsule (Macrobid) Allergy/AdvReac Type Severity Reaction Status Date / Time amoxicillin AdvReac Rash Verified 06/16/24 10:02 bupropion (From Wellbutrin) AdvReac Other Verified 06/16/24 08:14 venlafaxine (From Effexor) AdvReac Other Verified 06/16/24 08:14 Family History Grandmother Breast cancer Colon cancer Heart disease High cholesterol Ovarian cancer Uterine cancer Skin cancer Aunt Anxiety Surgical History history of wisdom teeth removal Social History adopted: No household members: spouse current occupational status: employed current occupation: [employer] pets and animals: Yes (Avoid litter box) pets and animals: cat(s) and dog(s) history of recent travel: Yes (September) out of state: Yes out of country: No sexually active: Yes Smoking Status: Never smoker alcohol intake: former year quit: 2021 substance use type: does not use well-balanced diet: about half the time caffeine: No eating out: 1-3 times/week during the past year weight has: increased > 10 lbs what type of physical activity do you participate in: walking frequency: 1-2 times per week duration: 15-30 minutes/day katelynn/jehovah's witness: Zoroastrianism seatbelt use: always do you feel safe at home: Yes 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 History 1 Elective abortions Hx Para 0 Spontaneous abortions Hx # Term Pregnancies Ectopic pregnancies Hx # Pregnancies Multiple births # of living children Visit Details Expected Delivery Route/Plan Labor Preferences- CB/BF classes: no labor support person: yi labor intervention preferences: [] pain management options preferred: epidural cut cord/dad catch: cord : yes PP control planned: discussed discussed possible routes of delivery and associated risks: [] special requests: [] Plans Covid status: [] Flu vaccine: w/employer Tdap vaccine: given Rhogam: na LARC form signed: yes Problem list reviewed and updated with the most current plan of care details and appropriate orders placed. Relevant counseling for the gestational age provided. Continue routine care and follow up unless otherwise noted in visit notes/problem list details OB Flowsheet Initial Weight: Not Recorded Date -?-?-?-?-?-?-?-?-?-?-?-?- EGA Weight BP Urine Prot -?-?-?-?-?-?-?-?-?-?-?-?- Glucose FHR FuHt Pres Dilation -?-?-?-?-?-?-?-?-?-?-?-?- Effaced St Visit Note 01/01/24 -?-?-?-?-?-?-?-?-?-?-?-?- 10w 0d 382 lb 131/83 -?-?-?-?-?-?-?-?-?-?-?-?- 170 -?-?-?-?-?-?-?-?-?-?-?-?- SM- CRL 3.16cm n ot cons with LMP no vb cramping 01/29/24 -?-?-?-?-?-?-?-?-?-?-?-?- 14w 0d 381 lb 6 oz 122/83 Nega tive -?-?-?-?-?-?-?-?-?-?-?-?- Negative 153 -?-?-?-?-?-?-?-?-?-?-?-?- MH-No VB. gluco se well controlled. Dr Borden increased synthroid and will recheck in 6 weeks. Plans to repeat NIPT in 2 wk and will do AFP then. Echo ordered 22-24 wk. Anatomy w/[facility] US 02/24/24 -?-?-?-?-?-?-?-?-?-?-?-?- 17w 5d 374 lb 124/80 Negative -?-?-?-?-?-?-?-?-?-?-?-?- Negative 150 -?-?-?-?-?-?-?-?-?-?-?-?- KW- no vb/lof/ct x. good fm. has echo and US scheduled. Dr Borden managing TSH and BS. doing well. discussed third trimester testing. 03/18/24 -?-?-?-?-?-?-?-?-?-?-?-?- 21w 0d 377 lb 6 oz 125/84 Nega tive -?-?-?-?-?-?-?-?-?-?-?-?- 1000 g/dL 150 -?-?-?-?-?-?-?-?-?-?-?-?- SM- no vb lof go od fm no regular ctx. 04/15/24 -?-?-?-?-?-?-?-?-?-?-?-?- 25w 0d 378 lb 6 oz 115/79 Trac e -?-?-?-?-?-?-?-?-?-?-?-?- Negative 145 -?-?-?-?-?-?-?-?-?-?-?-?- JV- no lof, vagi nal bleeding, or dec fm. pt now on u-[address] Borden through her pump. Levels are better controlled on this and she doesn't have to change her site as often. normal echo report on chart today. 04/20/24 -?-?-?-?-?-?-?-?-?-?-?-?- 25w 5d 379 lb 122/71 -?-?-?-?-?-?-?-?-?-?-?-?- 150 -?-?-?-?-?-?-?-?-?-?-?-?- KW- no vb/lof/ct x. heartbeat check today for some decreased FM. heard movement on doppler and FHR easily found. 05/06/24 -?-?-?-?-?-?-?-?-?-?-?-?- 28w 0d 381 lb 4 oz 124/82 Nega tive -?-?-?-?-?-?-?-?-?-?-?-?- Negative 136 32 -?-?-?-?-?-?-?-?-?-?-?-?- MH-No VB, LOF. g ood FM. Larc, tdap. 05/20/24 -?-?-?-?-?-?-?-?-?-?-?-?- 30w 0d 379 lb 138/84 Negative -?-?-?-?-?-?-?-?-?-?-?-?- Negative 145 36 -?-?-?-?-?-?-?-?-?-?-?-?- KW- no vb/lof/ct x. good fm. elevated bp today-pre e labs KW- no vb/lof/ctx. good fm. elevated bp today-pre e labs. has growth US and NSTs scheduled 06/05/24 -?-?-?-?-?-?-?-?-?-?-?-?- 32w 2d 379 lb 6 oz 131/82 Nega tive -?-?-?-?-?-?-?-?-?-?-?-?- Negative 140 -?-?-?-?-?-?-?-?-?-?-?-?- KW- no vb/lof/ct x. good fm. NST reactive. 06/08/24 -?-?-?-?-?-?-?-?-?-?-?-?- 32w 5d 381 lb 135/81 Negative -?-?--?-?-?-?-?-?-?-?-?-?- Negative 135 -?-?-?-?-?-?-?-?-?-?-?-?- SM- no vb lof go od fm n oreuglar ctx BS controlled fairly well 06/11/24 -?-?-?-?-?-?-?-?-?-?-?-?- 33w 1d 380 lb 4 oz 125/79 Nega tive -?-?-?-?-?-?-?-?-?-?-?-?- 200 g/dL 135 -?-?-?-?-?-?-?-?-?-?-?-?- KW- NST reactive . no vb/lof/ctx. good fm 06/16/24 -?-?-?-?-?-?-?-?-?-?-?-?- 33w 6d 382 lb 6 oz 132/82 2+ -?-?-?-?-?-?-?-?-?-?-?-?- Negative 130 -?-?-?-?-?-?-?-?-?-?-?-?- JV- pt complains of urinary frequency and burning. She has blood and protein in the urine. starting macrobid and sending urine for culture. JV- pt complains of urinary frequency and burning. She has blood and protein in the urine. starting macrobid and sending urine for culture. nst non-reactive sending to l&d ROS Constitutional Constitutional: Reports systems reviewed and no addt'l complaints, except as documented Gastrointestinal Gastrointestinal: Denies bloating, constipation, cramping, diarrhea, nausea or vomiting Genitourinary Genitourinary: Reports other Details: Denies vaginal odor, vaginal bleeding, or vaginal discharge ; Denies difficulty urinating or flank pain Physical Exam HEENT normocephalic Resp normal respiratory effort and normal air movement no CVA tenderness Extremity normal to inspection General Extremity: edema bilateral (trace ) NST FHR Rate Baby A Baseline: 140 Variability:: Moderate Accelerations:: 15 x 15 Decelerations:: None NST Reactive:: Yes FHR Category:: Category I Assessment & Plan (1) Non-reactive NST (non-stress test): (2) Large for gestational age fetus affecting management of mother: QUALIFIERS: Fetus number: single or unspecified fetus Trimester: third trimester Qualified Code(s): O36.63X0 - Maternal care for excessive growth, third trimester, not applicable or unspecified (3) Elevated blood pressure affecting , antepartum: (4) Anemia affecting : COMMENT: Add FE. Recheck 4 wk (5) Type 1 diabetes mellitus in second trimester, antepartum: COMMENT: follows with Dr Borden. pump in place. (6) Modified White class B pregestational diabetes mellitus: COMMENT: baseline labs, ekg. che borden. has baseline proteinuria. neg AFP screen, echo at 22-24 weeks/normal. declines NT. has insulin pump. 32wk:growth US q4w and twice wkly NST (7) Obesity affecting : QUALIFIERS: Trimester: second trimester Obesity type affecting : unspecified obesity Qualified Code(s): O99.212 - Obesity complicating , second trimester (8) Anxiety and depression: COMMENT: sertraline: stable (9) Supervision of high-risk : QUALIFIERS: Trimester: third trimester Qualified Code(s): O09.93 - Supervision of high risk , unspecified, third trimester COMMENT: PRR , EVELIN 07/29/24, boy Peter David (10) : QUALIFIERS: Weeks of gestation: 33 weeks Qualified Code(s): Z3A.33 - 33 weeks gestation of COMMENT: nl anatomy US WC (WP nurse). echo ordered. APF neg. NIPT low risk. 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
== END 2024-06-16 10:55 | disposition home or self-care (01) ==
LOC: WPOUT 09:39 → WP 09:42
PROVIDERS: PCP Family Medicine; Visit Provider Obstetrics & Gynecology
DX: O36.8330 Maternal care for abnormalities of the fetal heart rate or rhythm, third trimester, not applicable or unspecified (principal); O99.283 Endocrine, nutritional and metabolic diseases complicating pregnancy, third trimester; O24.013 Pre-existing type 1 diabetes mellitus, in pregnancy, third trimester; O99.013 Anemia complicating pregnancy, third trimester; O99.213 Obesity complicating pregnancy, third trimester; Z96.41 Presence of insulin pump (external) (internal); O36.63X0 Maternal care for excessive fetal growth, third trimester, not applicable or unspecified; O99.343 Other mental disorders complicating pregnancy, third trimester; R03.0 Elevated blood-pressure reading, without diagnosis of hypertension; D64.9 Anemia, unspecified; F32.A Depression, unspecified; F41.9 Anxiety disorder, unspecified; E06.3 Autoimmune thyroiditis; E03.9 Hypothyroidism, unspecified; Z3A.33 33 weeks gestation of pregnancy; Z79.82 Long term (current) use of aspirin; Z79.890 Hormone replacement therapy; Z79.899 Other long term (current) drug therapy
CPT/HCPCS: 59025; 59050; 76819; 99221; G0378

== ENCOUNTER → 2024-06-16 | Outpatient (CLI) | payer OTHER, SELFPAY | END | disposition home or self-care (01) | LOC: LABSPEC 09:01 | PROVIDERS: PCP Family Medicine; Referring Provider Obstetrics & Gynecology; Visit Provider Obstetrics & Gynecology | DX: R30.0 Dysuria (principal) | CPT/HCPCS: 87086; 87088 ==

== ENCOUNTER 2024-06-19 07:50 | Outpatient (CLI) | payer OTHER, SELFPAY ==
[2024-06-19 07:56] VITALS: BMI 54.5
[2024-06-19 08:34] VITALS: BP 128/63; PULSE 98
--- NOTE | 2024-06-19 08:57 | OB.TRI.HP_ITS ---
HPI - General HPI Narrative KATHERINE OCASIO, is a 29 F who presents at 34.2 weeks Maternal Data Information EVELIN Calculator Estimated Delivery Date Method Current WG Current Estimate 07/29/24 Ultrasound #1 34w 2d Other Estimates 07/22/24 LMP (Certain) 35w 2d [facility] Medical History Type 1 diabetes mellitus in second trimester, antepartum Vaginal candidiasis Diabetes mellitus type 1 Acute bronchitis, unspecified DKA (diabetic ketoacidoses) Thyroid disease History of pneumonia Irritable bowel syndrome History of migraine history of gastrointestinal problems H/O emotional problems Diabetes History of UTI Home Medications ?Medication ?Instructions ?Recorded ?Last Taken ?Type cholecalciferol (vitamin D3) 50 50 mcg PO DAILY 06/01/24 20:09 History mcg (2,000 unit) capsule sertraline 100 mg tablet 100 mg PO DAILY 12/17/2306/23 20:00 History folic acid 1 mg tablet 1 mg PO QDAY 12/25/23 20:10 History multivitamin no.47-iron fum 27 1 cap PO DAILY pregnanc y 12/25/23 06/01/24 20:00 History mg-folate no.1 1 mg-dha 300 mg capsule (PNV-DHA) aspirin 81 mg chewable tablet 81 mg PO QDAY 01/29/24 0 06/01/24 20:09 History (Capri Chewable Low Dose Aspirin) Humalog KwikPen Insulin 200 200 unit subcut QDAY #90 m L 03/19/24 06/02/24 Rx unit/mL (3 mL) subcutaneous (insulin lispro) pen needle, diabetic 32 gauge x #100 ea 04/20/24 Unkno wn Rx 5/32 (BD Ultra-Fine Yessica Pen Needle) levothyroxine 125 mcg tablet See Rx Instructions PO .C OMPLEX 05/20/24 06/02/24 07:10 History nitrofurantoin 100 mg PO BID 7 days #14 cap s 06/16/24 Unknown Rx monohydrate/macrocrystals 100 mg capsule (Macrobid) Allergy/AdvReac Type Severity Reaction Status Date / Time amoxicillin AdvReac Rash Verified 06/16/24 10:02 bupropion (From Wellbutrin) AdvReac Other Verified 06/16/24 08:14 venlafaxine (From Effexor) AdvReac Other Verified 06/16/24 08:14 Family History Grandmother Breast cancer Colon cancer Heart disease High cholesterol Ovarian cancer Uterine cancer Skin cancer Aunt Anxiety Surgical History history of wisdom teeth removal Social History adopted: No household members: spouse current occupational status: employed current occupation: [employer] pets and animals: Yes (Avoid litter box) pets and animals: cat(s) and dog(s) history of recent travel: Yes (September) out of state: Yes out of country: No sexually active: Yes Smoking Status: Never smoker alcohol intake: former year quit: 2021 substance use type: does not use well-balanced diet: about half the time caffeine: No eating out: 1-3 times/week during the past year weight has: increased > 10 lbs what type of physical activity do you participate in: walking frequency: 1-2 times per week duration: 15-30 minutes/day katelynn/jew: Anab[employer]ist seatbelt use: always do you feel safe at home: Yes 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 History 1 Elective abortions Hx Para 0 Spontaneous abortions Hx # Term Pregnancies Ectopic pregnancies Hx # Pregnancies Multiple births # of living children Visit Details Expected Delivery Route/Plan Labor Preferences- CB/BF classes: no labor support person: yi labor intervention preferences: [] pain management options preferred: epidural cut cord/dad catch: cord : yes PP control planned: discussed discussed possible routes of delivery and associated risks: [] special requests: [] Plans Covid status: [] Flu vaccine: w/employer Tdap vaccine: given Rhogam: na LARC form signed: yes Problem list reviewed and updated with the most current plan of care details and appropriate orders placed. Relevant counseling for the gestational age provided. Continue routine care and follow up unless otherwise noted in visit notes/problem list details OB Flowsheet Initial Weight: Not Recorded Date -?-?-?-?-?-?-?-?-?-?-?-?- EGA Weight BP Urine Prot -?-?-?-?-?-?-?-?-?-?-?-?- Glucose FHR FuHt Pres Dilation -?-?-?-?-?-?-?-?-?-?-?-?- Effaced St Visit Note 01/01/24 -?-?-?-?-?-?-?-?-?-?-?-?- 10w 0d 382 lb 131/83 -?-?-?-?-?-?-?-?-?-?-?-?- 170 -?-?-?-?-?--?-?-?-?-?-?-?- SM- CRL 3.16cm n ot cons with LMP no vb cramping 01/29/24 -?-?-?-?-?-?-?-?-?-?-?-?- 14w 0d 381 lb 6 oz 122/83 Nega tive -?-?-?-?-?-?-?-?-?-?-?-?- Negative 153 -?-?-?-?-?-?-?-?-?-?-?-?- MH-No VB. gluco se well controlled. Dr Borden increased synthroid and will recheck in 6 weeks. Plans to repeat NIPT in 2 wk and will do AFP then. Echo ordered 22-24 wk. Anatomy w/H US 02/24/24 -?-?-?-?-?-?-?-?-?-?-?-?- 17w 5d 374 lb 124/80 Negative -?-?-?-?-?-?-?-?-?-?-?-?- Negative 150 -?-?-?-?-?-?-?-?-?-?-?-?- KW- no vb/lof/ct x. good fm. has echo and US scheduled. Dr Borden managing TSH and BS. doing well. discussed third trimester testing. 03/18/24 -?-?-?-?-?-?-?-?-?-?-?-?- 21w 0d 377 lb 6 oz 125/84 Nega tive -?-?-?-?-?-?-?-?-?-?-?-?- 1000 g/dL 150 -?-?-?-?-?-?-?-?-?-?-?-?- SM- no vb lof go od fm no regular ctx. 04/15/24 -?-?-?-?-?-?-?-?-?-?-?-?- 25w 0d 378 lb 6 oz 115/79 Trac e -?-?-?-?-?-?-?-?-?-?-?-?- Negative 145 -?-?-?-?-?-?-?-?-?-?-?-?- JV- no lof, vagi nal bleeding, or dec fm. pt now on u-[address] Borden through her pump. Levels are better controlled on this and she doesn't have to change her site as often. normal echo report on chart today. 04/20/24 -?-?-?-?-?-?-?-?-?-?-?-?- 25w 5d 379 lb 122/71 -?-?-?-?-?-?-?-?-?-?-?-?- 150 -?-?-?-?-?-?-?-?-?-?-?-?- KW- no vb/lof/ct x. heartbeat check today for some decreased FM. heard movement on doppler and FHR easily found. 05/06/24 -?-?-?-?-?-?-?-?-?-?-?-?- 28w 0d 381 lb 4 oz 124/82 Nega tive -?-?-?-?-?-?-?-?-?-?-?-?- Negative 136 32 -?-?-?-?-?-?-?-?-?-?-?-?- MH-No VB, LOF. g ood FM. Larc, tdap. 05/20/24 -?-?-?-?-?-?-?-?-?-?-?-?- 30w 0d 379 lb 138/84 Negative -?-?-?-?-?-?-?-?-?-?-?-?- Negative 145 36 -?-?-?-?-?-?-?-?-?-?-?-?- KW- no vb/lof/ct x. good fm. elevated bp today-pre e labs KW- no vb/lof/ctx. good fm. elevated bp today-pre e labs. has growth US and NSTs scheduled 06/05/24 -?-?-?-?-?-?-?-?-?-?-?-?- 32w 2d 379 lb 6 oz 131/82 Nega tive -?-?-?-?-?-?-?-?-?-?-?-?- Negative 140 -?-?-?-?-?-?-?-?-?-?-?-?- KW- no vb/lof/ct x. good fm. NST reactive. 06/08/24 -?-?-?-?-?-?-?-?-?-?-?-?- 32w 5d 381 lb 135/81 Negative -?-?-?-?-?-?-?-?-?-?-?-?- Negative 135 -?-?-?-?-?-?-?-?-?-?-?-?- SM- no vb lof go od fm n oreuglar ctx BS controlled fairly well 06/11/24 -?-?-?-?-?-?-?-?-?-?-?-?- 33w 1d 380 lb 4 oz 125/79 Nega tive -?-?-?-?-?-?-?-?-?-?-?-?- 200 g/dL 135 -?-?-?-?-?-?-?-?-?-?-?-?- KW- NST reactive . no vb/lof/ctx. good fm 06/16/24 -?-?-?-?-?-?--?-?-?-?-?-?- 33w 6d 382 lb 6 oz 132/82 2+ -?-?-?-?-?-?-?-?-?-?-?-?- Negative 130 -?-?-?-?-?-?-?-?-?-?-?-?- JV- pt complains of urinary frequency and burning. She has blood and protein in the urine. starting macrobid and sending urine for culture. JV- pt complains of urinary frequency and burning. She has blood and protein in the urine. starting macrobid and sending urine for culture. nst non-reactive sending to l&d NST FHR Rate Baby A Baseline: 130 Variability:: Moderate Accelerations:: 15 x 15 Decelerations:: None NST Reactive:: Yes FHR Category:: Category I Uterine Activity:: irregular, non painful Assessment & Plan (1) Non-reactive NST (non-stress test): COMMENT: reactive nst (2) Modified White class B pregestational diabetes mellitus: COMMENT: baseline labs, ekg. che borden. has baseline proteinuria. neg AFP screen, echo at 22-24 weeks/normal. declines NT. has insulin pump. 32wk:growth US q4w and twice wkly NST (3) Type 1 diabetes mellitus in second trimester, antepartum: COMMENT: follows with Dr Borden. pump in place. (4) Supervision of high-risk : QUALIFIERS: Trimester: third trimester Qualified Code(s): O09.93 - Supervision of high risk , unspecified, third trimester COMMENT: PRR , EVELIN 07/29/24, boy Peter David (5) : QUALIFIERS: Weeks of gestation: 33 weeks Qualified Code(s): Z3A.33 - 33 weeks gestation of COMMENT: nl anatomy US [facility] (WP nurse). echo ordered. APF neg. NIPT low risk. Charges/Coding Procedures Urinary/Genital [id number]: 16109-84 non-stress test Interp
--- NOTE | 2024-06-19 08:57 | OB.TRI.NOTE ---
HPI - General HPI Narrative KATHERINE OCASIO, is a 29 F who presents at 34.2 weeks Maternal Data Information EVELIN Calculator Estimated Delivery Date Method Current WG Current Estimate 07/29/24 Ultrasound #1 34w 2d Other Estimates 07/22/24 LMP (Certain) 35w 2d [facility] Medical History Type 1 diabetes mellitus in second trimester, antepartum Vaginal candidiasis Diabetes mellitus type 1 Acute bronchitis, unspecified DKA (diabetic ketoacidoses) Thyroid disease History of pneumonia Irritable bowel syndrome History of migraine history of gastrointestinal problems H/O emotional problems Diabetes History of UTI Home Medications ?Medication ?Instructions ?Recorded ?Last Taken ?Type cholecalciferol (vitamin D3) 50 50 mcg PO DAILY 03/13/22 06/01/24 20:09 History mcg (2,000 unit) capsule sertraline 100 mg tablet 100 mg PO DAILY 12/17/23 06/01/24 20:00 History folic acid 1 mg tablet 1 mg PO QDAY 12/25/23 06/01/24 20:10 History multivitamin no.47-iron fum 27 1 cap PO DAILY 12/25/23 06/01/24 20:00 History mg-folate no.1 1 mg-dha 300 mg capsule (PNV-DHA) aspirin 81 mg chewable tablet 81 mg PO QDAY 01/29/24 06/01/24 20:09 History (Capri Chewable Low Dose Aspirin) Humalog KwikPen Insulin 200 200 unit subcut QDAY #90 mL 03/19/24 06/02/24 Rx unit/mL (3 mL) subcutaneous (insulin lispro) pen needle, diabetic 32 gauge x #100 ea 04/20/24 Unknown Rx 5/32 (BD Ultra-Fine Yessica Pen Needle) levothyroxine 125 mcg tablet See Rx Instructions PO .COMPLEX 05/20/24 06/02/24 07:10 History nitrofurantoin 100 mg PO BID 7 days #14 caps 06/16/24 Unknown Rx monohydrate/macrocrystals 100 mg capsule (Macrobid) Allergy/AdvReac Type Severity Reaction Status Date / Time amoxicillin AdvReac Rash Verified 06/16/24 10:02 bupropion (From Wellbutrin) AdvReac Other Verified 06/16/24 08:14 venlafaxine (From Effexor) AdvReac Other Verified 06/16/24 08:14 Family History Grandmother Breast cancer Colon cancer Heart disease High cholesterol Ovarian cancer Uterine cancer Skin cancer Aunt Anxiety Surgical History history of wisdom teeth removal Social History adopted: No household members: spouse current occupational status: employed current occupation: [employer] pets and animals: Yes (Avoid litter box) pets and animals: cat(s) and dog(s) history of recent travel: Yes (September) out of state: Yes out of country: No sexually active: Yes Smoking Status: Never smoker alcohol intake: former year quit: 2021 substance use type: does not use well-balanced diet: about half the time caffeine: No eating out: 1-3 times/week during the past year weight has: increased > 10 lbs what type of physical activity do you participate in: walking frequency: 1-2 times per week duration: 15-30 minutes/day katelynn/buddhist: Religion seatbelt use: always do you feel safe at home: Yes 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 History 1 Elective abortions Hx Para 0 Spontaneous abortions Hx # Term Pregnancies Ectopic pregnancies Hx # Pregnancies Multiple births # of living children Visit Details Expected Delivery Route/Plan Labor Preferences- CB/BF classes: no labor support person: yi labor intervention preferences: [] pain management options preferred: epidural cut cord/dad catch: cord : yes PP control planned: discussed discussed possible routes of delivery and associated risks: [] special requests: [] Plans Covid status: [] Flu vaccine: w/employer Tdap vaccine: given Rhogam: na LARC form signed: yes Problem list reviewed and updated with the most current plan of care details and appropriate orders placed. Relevant counseling for the gestational age provided. Continue routine care and follow up unless otherwise noted in visit notes/problem list details OB Flowsheet Initial Weight: Not Recorded Date <del>?</del> EGA Weight BP Urine Prot <del>?</del> Glucose FHR FuHt Pres Dilation <del>?</del> Effaced St Visit Note 01/01/24 <del>?</del> 10w 0d 382 lb 131/83 <del>?</del> 170 <del>?</del> SM- CRL 3.16cm not cons with LMP no vb cramping 01/29/24 <del>?</del> 14w 0d 381 lb 6 oz 122/83 Negative <del>?</del> Negative 153 <del>?</del> MH-No VB. glucose well controlled. Dr Borden increased synthroid and will recheck in 6 weeks. Plans to repeat NIPT in 2 wk and will do AFP then. Echo ordered 22-24 wk. Anatomy w/[facility] US 02/24/24 <del>?</del> 17w 5d 374 lb 124/80 Negative <del>?</del> Negative 150 <del>?</del> KW- no vb/lof/ctx. good fm. has echo and US scheduled. Dr Borden managing TSH and BS. doing well. discussed third trimester testing. 03/18/24 <del>?</del> 21w 0d 377 lb 6 oz 125/84 Negative <del>?</del> 1000 g/dL 150 <del>?</del> SM- no vb lof good fm no regular ctx. 04/15/24 <del>?</del> 25w 0d 378 lb 6 oz 115/79 Trace <del>?</del> Negative 145 <del>?</del> JV- no lof, vaginal bleeding, or dec fm. pt now on u-[address] Borden through her pump. Levels are better controlled on this and she doesn't have to change her site as often. normal echo report on chart today. 04/20/24 <del>?</del> 25w 5d 379 lb 122/71 <del>?</del> 150 <del>?</del> KW- no vb/lof/ctx. heartbeat check today for some decreased FM. heard movement on doppler and FHR easily found. 05/06/24 <del>?</del> 28w 0d 381 lb 4 oz 124/82 Negative <del>?</del> Negative 136 32 <del>?</del> MH-No VB, LOF. good FM. Larc, tdap. 05/20/24 <del>?</del> 30w 0d 379 lb 138/84 Negative <del>?</del> Negative 145 36 <del>?</del> KW- no vb/lof/ctx. good fm. elevated bp today-pre e labs KW- no vb/lof/ctx. good fm. elevated bp today-pre e labs. has growth US and NSTs scheduled 06/05/24 <del>?</del> 32w 2d 379 lb 6 oz 131/82 Negative <del>?</del> Negative 140 <del>?</del> KW- no vb/lof/ctx. good fm. NST reactive. 03/10/25 <del>?</del> 32w 5d 381 lb 135/81 Negative <del>?</del> Negative 135 <del>?</del> SM- no vb lof good fm n oreuglar ctx BS controlled fairly well 06/11/24 <del>?</del> 33w 1d 380 lb 4 oz 125/79 Negative <del>?</del> 200 g/dL 135 <del>?</del> KW- NST reactive. no vb/lof/ctx. good fm 06/16/24 <del>?</del> 33w 6d 382 lb 6 oz 132/82 2+ <del>?</del> Negative 130 <del>?</del> JV- pt complains of urinary frequency and burning. She has blood and protein in the urine. starting macrobid and sending urine for culture. JV- pt complains of urinary frequency and burning. She has blood and protein in the urine. starting macrobid and sending urine for culture. nst non-reactive sending to l&d NST FHR Rate Baby A Baseline: 130 Variability:: Moderate Accelerations:: 15 x 15 Decelerations:: None NST Reactive:: Yes FHR Category:: Category I Uterine Activity:: irregular, non painful Assessment & Plan (1) Non-reactive NST (non-stress test): COMMENT: reactive nst (2) Modified White class B pregestational diabetes mellitus: COMMENT: baseline labs, ekg. che borden. has baseline proteinuria. neg AFP screen, echo at 22-24 weeks/normal. declines NT. has insulin pump. 32wk:growth US q4w and twice wkly NST (3) Type 1 diabetes mellitus in second trimester, antepartum: COMMENT: follows with Dr Borden. pump in place. (4) Supervision of high-risk : QUALIFIERS: Trimester: third trimester Qualified Code(s): O09.93 - Supervision of high risk , unspecified, third trimester COMMENT: PRR , EVELIN 07/29/24, boy Peter David (5) : QUALIFIERS: Weeks of gestation: 33 weeks Qualified Code(s): Z3A.33 - 33 weeks gestation of COMMENT: nl anatomy [facility] (WP nurse). echo ordered. APF neg. NIPT low risk. Charges/Coding Procedures Urinary/Genital 52xxx-59xxx: 83704-84 non-stress test Interp
== END 2024-06-19 08:38 | disposition home or self-care (01) ==
LOC: WPOUT 07:55 → WP 07:56
PROVIDERS: PCP Family Medicine; Referring Provider Obstetrics & Gynecology; Visit Provider Obstetrics & Gynecology
DX: O76 Abnormality in fetal heart rate and rhythm complicating labor and delivery (principal); E10.9 Type 1 diabetes mellitus without complications; O99.283 Endocrine, nutritional and metabolic diseases complicating pregnancy, third trimester; E07.9 Disorder of thyroid, unspecified; Z96.41 Presence of insulin pump (external) (internal); Z3A.33 33 weeks gestation of pregnancy; Z79.82 Long term (current) use of aspirin; Z79.890 Hormone replacement therapy; Z79.899 Other long term (current) drug therapy; Z87.891 Personal history of nicotine dependence
CPT/HCPCS: 59025

== ENCOUNTER 2024-06-24 17:20 | Outpatient (CLI) | payer OTHER, SELFPAY ==
--- NOTE | 2024-06-24 17:22 | OB.TRI.HP_ITS ---
HPI - General HPI Narrative KATHERINE OCASIO, is a 29 y/o @ 35 weeks 0 days who presents to L&D for headache. She reports having some elevated blood pressures at home. Here her pressures are normal. PIH work up ordered Maternal Data Information EVELIN Calculator Estimated Delivery Date Method Current WG Current Estimate 07/29/24 Ultrasound #1 35w 1d Other Estimates 07/22/24 LMP (Certain) 36w 1d [facility] Medical History Type 1 diabetes mellitus in second trimester, antepartum Vaginal candidiasis Diabetes mellitus type 1 Acute bronchitis, unspecified DKA (diabetic ketoacidoses) Thyroid disease History of pneumonia Irritable bowel syndrome History of migraine history of gastrointestinal problems H/O emotional problems Diabetes History of UTI Home Medications ?Medication ?Instructions ?Recorded ?Last Taken ?Type sertraline 100 mg tablet 100 mg PO DAILY 12/17/23 21:00 History 100 mg folic acid 1 mg tablet 1 mg PO QDAY 12/25/23 21:00 History 1 mg multivitamin no.47-iron fum 27 1 cap PO DAILY pregnanc y 12/25/23 06/23/24 21:00 History mg-folate no.1 1 mg-dha 300 mg 1 cap capsule (PNV-DHA) aspirin 81 mg chewable tablet 81 mg PO QDAY 01/29/24 0 06/23/24 21:00 History (Capri Chewable Low Dose Aspirin) 81 m g Humalog KwikPen Insulin 200 200 unit subcut QDAY #90 m L 03/19/24 06/02/24 Rx unit/mL (3 mL) subcutaneous (insulin lispro) pen needle, diabetic 32 gauge x #100 ea 04/20/24 Unkno wn Rx /32 (BD Ultra-Fine Yessica Pen Needle) levothyroxine 125 mcg tablet See Rx Instructions PO .C OMPLEX 05/20/24 06/24/24 07:00 History 1 tab Allergy/AdvReac Type Severity Reaction Status Date / Time amoxicillin AdvReac Rash Verified 06/25/24 13:17 bupropion (From Wellbutrin) AdvReac Other Verified 06/25/24 13:17 venlafaxine (From Effexor) AdvReac Other Verified 06/25/24 13:17 Family History Grandmother Breast cancer Colon cancer Heart disease High cholesterol Ovarian cancer Uterine cancer Skin cancer Aunt Anxiety Surgical History history of wisdom teeth removal Social History adopted: No household members: spouse current occupational status: employed current occupation: [employer] pets and animals: Yes (Avoid litter box) pets and animals: cat(s) and dog(s) history of recent travel: Yes ([place] September) out of state: Yes out of country: No sexually active: Yes Smoking Status: Never smoker alcohol intake: former year quit: 2021 substance use type: does not use well-balanced diet: about half the time caffeine: No eating out: 1-3 times/week during the past year weight has: increased > 10 lbs what type of physical activity do you participate in: walking frequency: 1-2 times per week duration: 15-30 minutes/day katelynn/buddhism: Sabianist seatbelt use: always do you feel safe at home: Yes 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 History 1 Elective abortions Hx Para 0 Spontaneous abortions Hx # Term Pregnancies Ectopic pregnancies Hx # Pregnancies Multiple births # of living children Visit Details Expected Delivery Route/Plan Labor Preferences- CB/BF classes: no labor support person: yi labor intervention preferences: [] pain management options preferred: epidural cut cord/dad catch: cord : yes PP control planned: discussed discussed possible routes of delivery and associated risks: [] special requests: [] Plans Covid status: [] Flu vaccine: w/employer Tdap vaccine: given Rhogam: na LARC form signed: yes Problem list reviewed and updated with the most current plan of care details and appropriate orders placed. Relevant counseling for the gestational age provided. Continue routine care and follow up unless otherwise noted in visit notes/problem list details OB Flowsheet Initial Weight: Not Recorded Date -?-?-?-?-?-?-?-?-?-?-?-?- EGA Weight BP Urine Prot -?-?-?-?-?-?-?-?-?-?-?-?- Glucose FHR FuHt Pres Dilation -?-?-?-?-?-?-?-?-?-?-?-?- Effaced St Visit Note 01/01/24 -?-?-?-?-?-?-?-?-?-?-?-?- 10w 0d 382 lb 131/83 -?-?-?-?-?-?-?-?-?-?-?-?- 170 -?-?-?-?-?-?-?-?-?-?-?-?- SM- CRL 3.16cm n ot cons with LMP no vb cramping 01/29/24 -?-?-?-?-?-?-?-?-?-?-?-?- 14w 0d 381 lb 6 oz 122/83 Nega tive -?-?-?-?-?-?-?-?-?-?-?-?- Negative 153 -?-?-?-?-?-?-?-?-?-?-?-?- MH-No VB. gluco se well controlled. Dr Borden increased synthroid and will recheck in 6 weeks. Plans to repeat NIPT in 2 wk and will do AFP then. Echo ordered 22-24 wk. Anatomy w/H US 02/24/24 -?-?-?-?-?-?-?-?-?-?-?-?- 17w 5d 374 lb 124/80 Negative -?-?-?-?-?-?-?-?-?-?-?-?- Negative 150 -?-?-?-?-?-?-?-?-?-?-?-?- KW- no vb/lof/ct x. good fm. has echo and US scheduled. Dr Borden managing TSH and BS. doing well. discussed third trimester testing. 03/18/24 -?-?-?-?-?-?-?-?-?-?-?-?- 21w 0d 377 lb 6 oz 125/84 Nega tive -?-?-?-?-?-?-?-?-?-?-?-?- 1000 g/dL 150 -?-?-?-?-?-?-?-?-?-?-?-?- SM- no vb lof go od fm no regular ctx. 04/15/24 -?--?-?-?-?-?-?-?-?-?-?-?- 25w 0d 378 lb 6 oz 115/79 Trac e -?-?-?-?-?-?-?-?-?-?-?-?- Negative 145 -?-?-?-?-?-?-?-?-?-?-?-?- JV- no lof, vagi nal bleeding, or dec fm. pt now on u-[address] Borden through her pump. Levels are better controlled on this and she doesn't have to change her site as often. normal echo report on chart today. 04/20/24 -?-?-?-?-?-?-?-?-?-?-?-?- 25w 5d 379 lb 122/71 -?-?-?-?-?-?-?-?-?-?-?-?- 150 -?-?-?-?-?-?-?-?-?-?-?-?- KW- no vb/lof/ct x. heartbeat check today for some decreased FM. heard movement on doppler and FHR easily found. 05/06/24 -?-?-?-?-?-?-?-?-?-?-?-?- 28w 0d 381 lb 4 oz 124/82 Nega tive -?-?-?-?-?-?-?-?-?-?-?-?- Negative 136 32 -?-?-?-?-?-?-?-?-?-?-?-?- MH-No VB, LOF. g ood FM. Larc, tdap. 05/20/24 -?-?-?-?-?-?-?-?-?-?-?-?- 30w 0d 379 lb 138/84 Negative -?-?-?-?-?-?-?-?-?-?-?-?- Negative 145 36 -?-?-?-?-?-?-?-?-?-?-?-?- KW- no vb/lof/ct x. good fm. elevated bp today-pre e labs KW- no vb/lof/ctx. good fm. elevated bp today-pre e labs. has growth US and NSTs scheduled 06/05/24 -?-?-?-?-?-?-?-?-?-?-?-?- 32w 2d 379 lb 6 oz 131/82 Nega tive -?-?-?-?-?-?-?-?-?-?-?-?- Negative 140 -?-?-?-?-?-?-?-?-?-?-?-?- KW- no vb/lof/ct x. good fm. NST reactive. 06/08/24 -?-?-?-?-?-?-?-?-?-?-?-?- 32w 5d 381 lb 135/81 Negative -?-?-?-?-?-?-?-?-?-?-?-?- Negative 135 -?-?-?-?-?-?-?-?-?-?-?-?- SM- no vb lof go od fm n oreuglar ctx BS controlled fairly well 06/11/24 -?-?-?-?-?-?-?-?-?-?-?-?- 33w 1d 380 lb 4 oz 125/79 Nega tive -?-?-?-?-?-?-?-?-?-?-?-?- 200 g/dL 135 -?-?-?-?-?-?-?-?-?-?-?-?- KW- NST reactive . no vb/lof/ctx. good fm 06/16/24 -?-?-?-?-?-?-?-?-?-?-?-?- 33w 6d 382 lb 6 oz 132/82 2+ -?-?-?-?-?-?-?-?-?-?-?-?- Negative 130 -?-?-?-?-?-?-?-?-?-?-?-?- JV- pt complains of urinary frequency and burning. She has blood and protein in the urine. starting macrobid and sending urine for culture. JV- pt complains of urinary frequency and burning. She has blood and protein in the urine. starting macrobid and sending urine for culture. nst non-reactive sending to l&d 06/22/24 -?-?-?-?-?-?-?-?-?-?-?-?- 34w 5d 384 lb 2 oz 136/81 Nega tive -?-?-?-?-?-?-?-?-?-?-?-?- Negative 140 -?-?-?-?-?-?-?-?-?-?-?-?- KW- no vb/lof/ct x. good fm NST reactive today. Requesting to do NST on 07/03 on WP due to work schedule. has 36 week growth US scheduled 06/25/24 -?-?-?-?-?-?-?-?-?-?-?-?- 35w 1d 382 lb 6 oz 137/85 1+ -?-?-?-?-?-?-?-?-?-?-?-?- 1000 g/dL 180 -?-?-?-?-?-?-?-?-?-?-?-?- MH-baby tachy. M om w/proteinuria, headache, blurred vision. To WP ROS Constitutional Constitutional: Reports systems reviewed and no addt'l complaints, except as documented Gastrointestinal Gastrointestinal: Denies bloating, constipation, cramping, diarrhea, nausea or vomiting Genitourinary Genitourinary: Reports other Details: Denies vaginal odor, vaginal bleeding, or vaginal discharge ; Denies difficulty urinating or flank pain Physical Exam HEENT normocephalic Resp normal respiratory effort and normal air movement no CVA tenderness Extremity normal to inspection General Extremity: edema bilateral (trace ) NST FHR Rate Baby A Baseline: 140 Variability:: Moderate Accelerations:: 15 x 15 Decelerations:: None NST Reactive:: Yes FHR Category:: Category I Assessment & Plan (1) Headache in : (2) Non-reactive NST (non-stress test): COMMENT: reactive nst (3) Large for gestational age fetus affecting management of mother: QUALIFIERS: Fetus number: single or unspecified fetus Trimester: third trimester Qualified Code(s): O36.63X0 - Maternal care for excessive growth, third trimester, not applicable or unspecified (4) Elevated blood pressure affecting , antepartum: (5) Anemia affecting : COMMENT: Add FE. Recheck 4 wk (6) Type 1 diabetes mellitus in second trimester, antepartum: COMMENT: follows with Dr Borden. pump in place. (7) Modified White class B pregestational diabetes mellitus: COMMENT: baseline labs, ekg. che borden. has baseline proteinuria. neg AFP screen, echo at 22-24 weeks/normal. declines NT. has insulin pump. 32wk:growth US q4w and twice wkly NST (8) Obesity affecting : QUALIFIERS: Trimester: second trimester Obesity type affecting : unspecified obesity Qualified Code(s): O99.212 - Obesity complicating , second trimester (9) Anxiety and depression: COMMENT: sertraline: stable (10) Supervision of high-risk : QUALIFIERS: Trimester: third trimester Qualified Code(s): O09.93 - Supervision of high risk , unspecified, third trimester COMMENT: PRR , EVELIN 07/29/24, boy Peter David (11) : QUALIFIERS: Weeks of gestation: 35 weeks Qualified Code(s): Z3A.35 - 35 weeks gestation of COMMENT: nl anatomy US [facility] (WP nurse). echo ordered. APF neg. NIPT low risk. 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 ok to dc to home and give tylenol. keep in in office 06/25/24 Charges/Coding Multi Select Codes Visit Charges Office Visit/Consults: 84578 OV L3 Est 20min Urinary/Genital Urinary/Genital CPT Codes: 31657-73 non-stress test Interp
[2024-06-24 17:40] VITALS: BMI 53.7
[2024-06-24 17:47] VITALS: PULSE 120; O2SAT 97
[2024-06-24 17:54] VITALS: RESP 18; TEMP 36.5
[2024-06-24 17:55] VITALS: BP 151/70; PULSE 118
[2024-06-24 18:15] VITALS: BP 135/72; PULSE 117
[2024-06-24 18:23] LABS: Hematocrit 34.6 % (37-47); Hemoglobin 11.4 g/dL (12.0-15.0); Mean Corp Hgb Conc 32.9 g/dL (32-36); Mean Corpuscular Hgb 24.5 pg (27.0-32.0); Mean Corpuscular Volume 74.4 fL (81-99); Mean Platelet Vol. 10.8 fl (6.2-12.0); Platelet Count 240 K/mm3 (150-450); RBC Distribution Width CV 14.5 % (11.6-14.6); RBC Distribution Width SD 38.4 fl (35.1-43.9); Red Blood Count 4.65 M/mm3 (4.2-5.4); White Blood Count 7.6 K/mm3 (4.4-11.0)
[2024-06-24 18:30] VITALS: BP 124/58; PULSE 116
[2024-06-24 18:45] VITALS: BP 101/54; PULSE 117
[2024-06-24 18:47] LABS: AST(SGOT) 13 U/L (<=31); Alanine Aminotransfer ALT/SGPT 6 U/L (<=34); Creatinine, Serum 0.65 mg/dL (0.70-1.20); EST Glomerular Filtration Rate 122 (>60); Estimated Creatinine Clearance 219.95 ml/min (50-250)
[2024-06-24 18:47] LABS: Protein, Urine (Random) 75.7 mg/dL (0.0-12.0); Protein:Creat Ratio 272 mg/g CRE (0-200)
== END 2024-06-24 18:54 | disposition home or self-care (01) ==
LOC: WPOUT 17:28 → WP 17:32
PROVIDERS: PCP Family Medicine; Referring Provider Obstetrics & Gynecology; Visit Provider Obstetrics & Gynecology
DX: O26.893 Other specified pregnancy related conditions, third trimester (principal); Z79.4 Long term (current) use of insulin; R51.9 Headache, unspecified; O24.013 Pre-existing type 1 diabetes mellitus, in pregnancy, third trimester; O36.63X0 Maternal care for excessive fetal growth, third trimester, not applicable or unspecified; O36.8330 Maternal care for abnormalities of the fetal heart rate or rhythm, third trimester, not applicable or unspecified; O99.283 Endocrine, nutritional and metabolic diseases complicating pregnancy, third trimester; E06.3 Autoimmune thyroiditis; Z79.82 Long term (current) use of aspirin; Z79.890 Hormone replacement therapy; Z79.899 Other long term (current) drug therapy; Z3A.35 35 weeks gestation of pregnancy; Z96.41 Presence of insulin pump (external) (internal)
CPT/HCPCS: 36415; 59025; 59050; 82565; 82570; 84156; 84450; 84460; 84550; 85027; 99221; G0378

== ENCOUNTER 2024-06-25 13:39 | Outpatient (CLI) | payer OTHER, SELFPAY ==
[2024-06-25] VITALS (10 sets, daily range): BP systolic 104–139; BP diastolic 55–86; PULSE 96–117; RESP 16; TEMP 36.8; O2SAT 99; BMI 54.8
[2024-06-25 14:00] LABS: Absolute Lymphocyte Count 1.57 X10^3/uL (0.83-4.51); Absolute Neutrophil Count 6.2 X10^3/uL (2.0-7.7); Basophil# 0.02 X10^3/uL; Basophil% 0.2 % (0-1); Eosinophil# 0.12 X10^3/uL; Eosinophils% 1.4 % (0-5); Hematocrit 33.3 % (37-47); Hemoglobin 10.6 g/dL (12.0-15.0); Lymphocyte # 1.57 X10^3/ul (0.83-4.51); Lymphocyte % 18.4 % (19-41); Mean Corp Hgb Conc 31.8 g/dL (32-36); Mean Corpuscular Hgb 24.2 pg (27.0-32.0); Mean Platelet Vol. 10.7 fl (6.2-12.0); Monocyte# 0.57 X10^3/uL; Monocyte% 6.7 % (0-10); NRBC Flagged by Analyzer 0 % (0-5); Neutrophil % 72.7 % (47-70); Platelet Count 222 K/mm3 (150-450); RBC Distribution Width CV 14.4 % (11.6-14.6); RBC Distribution Width SD 38.9 fl (35.1-43.9); Red Blood Count 4.38 M/mm3 (4.2-5.4); White Blood Count 8.5 K/mm3 (4.4-11.0)
[2024-06-25 15:07] LABS: Protein, Urine (Random) 26.3 mg/dL (0.0-12.0); Protein:Creat Ratio 169 mg/g CRE (0-200)
[2024-06-25 15:12] LABS: ALB/GLOB Ratio 1.1 RATIO (0.9-2.4); AST(SGOT) 11 U/L (<=31); Alanine Aminotransfer ALT/SGPT 7 U/L (<=34); Albumin, Serum 2.9 g/dL (3.5-5.0); Alkaline Phosphatase 103 U/L (35-104); Anion Gap 16 (5-15); BUN 8 mg/dL (4-19); BUN/Creat Ratio 10.3 RATIO (10-20); Calcium,Total 8.3 mg/dL (7.6-11.0); Carbon Dioxide 14.7 mmol/L (21.0-32.0); Chloride 104 mmol/L (98-108); Creatinine, Serum 0.73 mg/dL (0.70-1.20); EST Glomerular Filtration Rate 114 (>60); Estimated Creatinine Clearance 198.19 ml/min (50-250); Globulin 2.7 g/dL (2.2-4.2); Glucose 233 mg/dL (70-99); Potassium 4.3 mmol/L (3.3-5.1); Protein, Total 5.6 g/dL (5.9-8.4); Sodium Level 135 mmol/L (133-145); Total Bilirubin 0.21 mg/dL (0.00-1.30)
[2024-06-25 16:12] LABS: Bedside Glucose 132 mg/dL (74-106)
[2024-06-25 16:14] LABS: Bacteria 0 SEEN /hpf (None Seen); Mucous, Urine 0 SEEN /hpf (<or=2+)
[2024-06-25 16:23] LABS: Color, Urine Yellow (Yellow); Glucose, Dipstick 1000 mg/dl (Normal); Ketone-Dipstick Negative (Negative); Leukocyte Esterase-Dipstick Negative /ul (Negative); Nitrite-Dipstick Negative (Negative); Occult Blood-Urine Negative /ul (Negative); Protein-Dipstick 15 mg/dl (Negative); Urine Bilirubin Dipstick Negative (Negative); Urine Clarity Clear (Clear); Urine Urobilinogen Normal (Normal)
[2024-06-25 17:04] LABS: Squamous Epithelial Cells - UA 0-5 SEEN /hpf (5-10); White Blood Cells 0-5 SEEN /hpf (0-5)
[2024-06-25 17:10] LABS: Red Blood Cells-Urine 0-5 SEEN /hpf (0-5); Transitional Epithelial - Ur 0-5 SEEN /hpf (0-5)
[2024-06-25] MEDS: Acetaminophen/Butalbital/Caffe 1 Tablet 2 TABLET PO (17:18)
--- NOTE | 2024-06-25 17:25 | OB.TRI.HP_ITS ---
HPI - General HPI Narrative KATHERINE OCASIO, is a 29 y/o @ 35 weeks 1 day who presents to L&D again today with a headache. Her bp is on the low normal and repeat PIH work up was normal. She describes the headache location across the forehead. She denies neck pain, back pain, contractions, loss of fluid, or vaginal bleeding. Maternal Data Information EVELIN Calculator Estimated Delivery Date Method Current WG Current Estimate 07/29/24 Ultrasound #1 35w 1d Other Estimates 07/22/24 LMP (Certain) 36w 1d PFSH PFS Medical History Type 1 diabetes mellitus in second trimester, antepartum Vaginal candidiasis Diabetes mellitus type 1 Acute bronchitis, unspecified DKA (diabetic ketoacidoses) Thyroid disease History of pneumonia Irritable bowel syndrome History of migraine history of gastrointestinal problems H/O emotional problems Diabetes History of UTI Home Medications ?Medication ?Instructions ?Recorded ?Last Taken ?Type sertraline 100 mg tablet 100 mg PO DAILY 12/17/23 21:00 History 100 mg folic acid 1 mg tablet 1 mg PO QDAY 12/25/23 21:00 History 1 mg multivitamin no.47-iron fum 27 1 cap PO DAILY pregnanc y 12/25/23 06/23/24 21:00 History mg-folate no.1 1 mg-dha 300 mg 1 cap capsule (PNV-DHA) aspirin 81 mg chewable tablet 81 mg PO QDAY 01/29/24 0 06/23/24 21:00 History (Capri Chewable Low Dose Aspirin) 81 m g Humalog KwikPen Insulin 200 200 unit subcut QDAY #90 m L 03/19/24 06/02/24 Rx unit/mL (3 mL) subcutaneous (insulin lispro) pen needle, diabetic 32 gauge x #100 ea 04/20/24 Unkno wn Rx (BD Ultra-Fine Yessica Pen Needle) levothyroxine 125 mcg tablet See Rx Instructions PO .C OMPLEX 05/20/24 06/24/24 07:00 History 1 tab Allergy/AdvReac Type Severity Reaction Status Date / Time amoxicillin AdvReac Rash Verified 06/25/24 13:17 bupropion (From Wellbutrin) AdvReac Other Verified 06/25/24 13:17 venlafaxine (From Effexor) AdvReac Other Verified 06/25/24 13:17 Family History Grandmother Breast cancer Colon cancer Heart disease High cholesterol Ovarian cancer Uterine cancer Skin cancer Aunt Anxiety Surgical History history of wisdom teeth removal Social History adopted: No household members: spouse current occupational status: employed current occupation: [employer] pets and animals: Yes (Avoid litter box) pets and animals: cat(s) and dog(s) history of recent travel: Yes (September) out of state: Yes out of country: No sexually active: Yes Smoking Status: Never smoker alcohol intake: former year quit: 2021 substance use type: does not use well-balanced diet: about half the time caffeine: No eating out: 1-3 times/week during the past year weight has: increased > 10 lbs what type of physical activity do you participate in: walking frequency: 1-2 times per week duration: 15-30 minutes/day katelynn/church: [employer] seatbelt use: always do you feel safe at home: Yes 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 History 1 Elective abortions Hx Para 0 Spontaneous abortions Hx # Term Pregnancies Ectopic pregnancies Hx # Pregnancies Multiple births # of living children Visit Details Expected Delivery Route/Plan Labor Preferences- CB/BF classes: no labor support person: yi labor intervention preferences: [] pain management options preferred: epidural cut cord/dad catch: cord : yes PP control planned: discussed discussed possible routes of delivery and associated risks: [] special requests: [] Plans Covid status: [] Flu vaccine: w/employer Tdap vaccine: given Rhogam: na LARC form signed: yes Problem list reviewed and updated with the most current plan of care details and appropriate orders placed. Relevant counseling for the gestational age provided. Continue routine care and follow up unless otherwise noted in visit notes/problem list details OB Flowsheet Initial Weight: Not Recorded Date -?-?-?-?-?-?-?-?-?-?-?-?- EGA Weight BP Urine Prot -?-?-?-?-?-?-?-?-?-?-?-?- Glucose FHR FuHt Pres Dilation -?-?-?-?-?-?-?-?-?-?-?-?- Effaced St Visit Note 01/01/24 -?-?-?-?-?-?-?-?-?-?-?-?- 10w 0d 382 lb 131/83 -?-?-?-?-?-?-?-?-?-?-?-?- 170 -?-?-?-?-?-?-?-?-?-?-?-?- SM- CRL 3.16cm n ot cons with LMP no vb cramping 01/29/24 -?-?-?-?-?-?-?-?-?-?-?-?- 14w 0d 381 lb 6 oz 122/83 Nega tive -?-?-?-?-?-?-?-?-?-?-?-?- Negative 153 -?-?-?-?-?-?-?-?-?-?-?-?- MH-No VB. gluco se well controlled. Dr oBrden increased synthroid and will recheck in 6 weeks. Plans to repeat NIPT in 2 wk and will do AFP then. Echo ordered 22-24 wk. Anatomy w/[facility] US 02/24/24 -?-?-?-?-?-?-?-?-?-?-?-?- 17w 5d 374 lb 124/80 Negative -?--?-?-?-?-?-?-?-?-?-?-?- Negative 150 -?-?-?-?-?-?-?-?-?-?-?-?- KW- no vb/lof/ct x. good fm. has echo and US scheduled. Dr Borden managing TSH and BS. doing well. discussed third trimester testing. 03/18/24 -?-?-?-?-?-?-?-?-?-?-?-?- 21w 0d 377 lb 6 oz 125/84 Nega tive -?-?-?-?-?-?-?-?-?-?-?-?- 1000 g/dL 150 -?-?-?-?-?-?-?-?-?-?-?-?- SM- no vb lof go od fm no regular ctx. 04/15/24 -?-?-?-?-?-?-?-?-?-?-?-?- 25w 0d 378 lb 6 oz 115/79 Trac e -?-?-?-?-?-?-?-?-?-?-?-?- Negative 145 -?-?-?-?-?-?-?-?-?-?-?-?- JV- no lof, vagi nal bleeding, or dec fm. pt now on u-[address] Borden through her pump. Levels are better controlled on this and she doesn't have to change her site as often. normal echo report on chart today. 04/20/24 -?-?-?-?-?-?-?-?-?-?-?-?- 25w 5d 379 lb 122/71 -?-?-?-?-?-?-?-?-?-?-?-?- 150 -?-?-?-?-?-?-?-?-?-?-?-?- KW- no vb/lof/ct x. heartbeat check today for some decreased FM. heard movement on doppler and FHR easily found. 05/06/24 -?-?-?-?-?-?-?-?-?-?-?-?- 28w 0d 381 lb 4 oz 124/82 Nega tive -?-?-?-?-?-?-?-?-?-?-?-?- Negative 136 32 -?-?-?-?-?-?-?-?-?-?-?-?- MH-No VB, LOF. g ood FM. Larc, tdap. 05/20/24 -?-?-?-?-?-?-?-?-?-?-?-?- 30w 0d 379 lb 138/84 Negative -?-?-?-?-?-?-?-?-?-?-?-?- Negative 145 36 -?-?-?-?-?-?-?-?-?-?-?-?- KW- no vb/lof/ct x. good fm. elevated bp today-pre e labs KW- no vb/lof/ctx. good fm. elevated bp today-pre e labs. has growth US and NSTs scheduled 06/05/24 -?-?-?-?-?-?-?-?-?-?-?-?- 32w 2d 379 lb 6 oz 131/82 Nega tive -?-?-?-?-?-?-?-?-?-?-?-?- Negative 140 -?-?-?-?-?-?-?-?--?-?-?-?- KW- no vb/lof/ct x. good fm. NST reactive. 06/08/24 -?-?-?-?-?-?-?-?-?-?-?-?- 32w 5d 381 lb 135/81 Negative -?-?-?-?-?-?-?-?-?-?-?-?- Negative 135 -?-?-?-?-?-?-?-?-?-?-?-?- SM- no vb lof go od fm n oreuglar ctx BS controlled fairly well 06/11/24 -?-?-?-?-?-?-?-?-?-?-?-?- 33w 1d 380 lb 4 oz 125/79 Nega tive -?-?-?-?-?-?-?-?-?-?-?-?- 200 g/dL 135 -?-?-?-?-?-?-?-?-?-?-?-?- KW- NST reactive . no vb/lof/ctx. good fm 06/16/24 -?-?-?-?-?-?-?-?-?-?-?-?- 33w 6d 382 lb 6 oz 132/82 2+ -?-?-?-?-?-?-?-?-?-?-?-?- Negative 130 -?-?-?-?-?-?-?-?-?-?-?-?- JV- pt complains of urinary frequency and burning. She has blood and protein in the urine. starting macrobid and sending urine for culture. JV- pt complains of urinary frequency and burning. She has blood and protein in the urine. starting macrobid and sending urine for culture. nst non-reactive sending to l&d 06/22/24 -?-?-?-?-?-?-?-?-?-?-?-?- 34w 5d 384 lb 2 oz 136/81 Nega tive -?-?-?-?-?-?-?-?-?-?-?-?- Negative 140 -?-?-?-?-?-?-?-?-?-?-?-?- KW- no vb/lof/ct x. good fm NST reactive today. Requesting to do NST on 07/03 on WP due to work schedule. has 36 week growth US scheduled 06/25/24 -?-?-?-?-?-?-?-?-?-?-?-?- 35w 1d 382 lb 6 oz 137/85 1+ -?-?-?-?-?-?-?-?-?-?-?-?- 1000 g/dL 180 -?-?-?-?-?-?-?-?-?-?-?-?- MH-baby tachy. M om w/proteinuria, headache, blurred vision. To WP
--- NOTE | 2024-06-25 17:25 | OB.TRI.NOTE ---
HPI - General General Date of Admission: 06/25/24 HPI Narrative KATHERINE OCASIO, is a 29 y/o @ 35 weeks 1 day who presents to L&D again today with a headache. Her bp is on the low normal and repeat PIH work up was normal. She describes the headache location across the forehead. She denies neck pain, back pain, contractions, loss of fluid, or vaginal bleeding. She did have some visual changes earlier that is no longer an issue. She denies epigastric pain. Maternal Data Information EVELIN Calculator Estimated Delivery Date Method Current WG Current Estimate 07/29/24 Ultrasound #1 35w 1d Other Estimates 07/22/24 LMP (Certain) [address]w [address] [facility] Medical History Type 1 diabetes mellitus in second trimester, antepartum Vaginal candidiasis Diabetes mellitus type 1 Acute bronchitis, unspecified DKA (diabetic ketoacidoses) Thyroid disease History of pneumonia Irritable bowel syndrome History of migraine history of gastrointestinal problems H/O emotional problems Diabetes History of UTI Home Medications ?Medication ?Instructions ?Recorded ?Last Taken ?Type sertraline 100 mg tablet 100 mg PO DAILY 12/17/23 06/23/24 21:00 History 100 mg folic acid 1 mg tablet 1 mg PO QDAY 12/25/23 06/23/24 21:00 History 1 mg multivitamin no.47-iron fum 27 1 cap PO DAILY 12/25/23 06/23/24 21:00 History mg-folate no.1 1 mg-dha 300 mg 1 cap capsule (PNV-DHA) aspirin 81 mg chewable tablet 81 mg PO QDAY 01/29/24 06/23/24 21:00 History (Capri Chewable Low Dose Aspirin) 81 mg Humalog KwikPen Insulin 200 200 unit subcut QDAY #90 mL 03/19/24 06/02/24 Rx unit/mL (3 mL) subcutaneous (insulin lispro) pen needle, diabetic 32 gauge x #100 ea 04/20/24 Unknown Rx (BD Ultra-Fine Yessica Pen Needle) levothyroxine 125 mcg tablet See Rx Instructions PO .COMPLEX 05/20/24 06/24/24 07:00 History 1 tab Allergy/AdvReac Type Severity Reaction Status Date / Time amoxicillin AdvReac Rash Verified 06/25/24 13:17 bupropion (From Wellbutrin) AdvReac Other Verified 06/25/24 13:17 venlafaxine (From Effexor) AdvReac Other Verified 06/25/24 13:17 Family History Grandmother Breast cancer Colon cancer Heart disease High cholesterol Ovarian cancer Uterine cancer Skin cancer Aunt Anxiety Surgical History history of wisdom teeth removal Social History adopted: No household members: spouse current occupational status: employed current occupation: [employer] pets and animals: Yes (Avoid litter box) pets and animals: cat(s) and dog(s) history of recent travel: Yes (September) out of state: Yes out of country: No sexually active: Yes Smoking Status: Never smoker alcohol intake: former year quit: 2021 substance use type: does not use well-balanced diet: about half the time caffeine: No eating out: 1-3 times/week during the past year weight has: increased > 10 lbs what type of physical activity do you participate in: walking frequency: 1-2 times per week duration: 15-30 minutes/day katelynn/worship: [employer] seatbelt use: always do you feel safe at home: Yes 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 History 1 Elective abortions Hx Para 0 Spontaneous abortions Hx # Term Pregnancies Ectopic pregnancies Hx # Pregnancies Multiple births # of living children Visit Details Expected Delivery Route/Plan Labor Preferences- CB/BF classes: no labor support person: yi labor intervention preferences: [] pain management options preferred: epidural cut cord/dad catch: cord : yes PP control planned: discussed discussed possible routes of delivery and associated risks: [] special requests: [] Plans Covid status: [] Flu vaccine: w/employer Tdap vaccine: given Rhogam: na LARC form signed: yes Problem list reviewed and updated with the most current plan of care details and appropriate orders placed. Relevant counseling for the gestational age provided. Continue routine care and follow up unless otherwise noted in visit notes/problem list details OB Flowsheet Initial Weight: Not Recorded Date <del>?</del> EGA Weight BP Urine Prot <del>?</del> Glucose FHR FuHt Pres Dilation <del>?</del> Effaced St Visit Note 01/01/24 <del>?</del> 10w 0d 382 lb 131/83 <del>?</del> 170 <del>?</del> SM- CRL 3.16cm not cons with LMP no vb cramping 01/29/24 <del>?</del> 14w 0d 381 lb 6 oz 122/83 Negative <del>?</del> Negative 153 <del>?</del> MH-No VB. glucose well controlled. Dr Borden increased synthroid and will recheck in 6 weeks. Plans to repeat NIPT in 2 wk and will do AFP then. Echo ordered 22-24 wk. Anatomy w/[facility] US 02/24/24 <del>?</del> 17w 5d 374 lb 124/80 Negative <del>?</del> Negative 150 <del>?</del> KW- no vb/lof/ctx. good fm. has echo and US scheduled. Dr Borden managing TSH and BS. doing well. discussed third trimester testing. 03/18/24 <del>?</del> 21w 0d 377 lb 6 oz 125/84 Negative <del>?</del> 1000 g/dL 150 <del>?</del> SM- no vb lof good fm no regular ctx. 04/15/24 <del>?</del> 25w 0d 378 lb 6 oz 115/79 Trace <del>?</del> Negative 145 <del>?</del> JV- no lof, vaginal bleeding, or dec fm. pt now on u-[address] Borden through her pump. Levels are better controlled on this and she doesn't have to change her site as often. normal echo report on chart today. 04/20/24 <del>?</del> 25w 5d 379 lb 122/71 <del>?</del> 150 <del>?</del> KW- no vb/lof/ctx. heartbeat check today for some decreased FM. heard movement on doppler and FHR easily found. 05/06/24 <del>?</del> 28w 0d 381 lb 4 oz 124/82 Negative <del>?</del> Negative 136 32 <del>?</del> MH-No VB, LOF. good FM. Larc, tdap. 05/20/24 <del>?</del> 30w 0d 379 lb 138/84 Negative <del>?</del> Negative 145 36 <del>?</del> KW- no vb/lof/ctx. good fm. elevated bp today-pre e labs KW- no vb/lof/ctx. good fm. elevated bp today-pre e labs. has growth US and NSTs scheduled 06/05/24 <del>?</del> 32w 2d 379 lb 6 oz 131/82 Negative <del>?</del> Negative 140 <del>?</del> KW- no vb/lof/ctx. good fm. NST reactive. 06/08/24 <del>?</del> 32w 5d 381 lb 135/81 Negative <del>?</del> Negative 135 <del>?</del> SM- no vb lof good fm n oreuglar ctx BS controlled fairly well 06/11/24 <del>?</del> 33w 1d 380 lb 4 oz 125/79 Negative <del>?</del> 200 g/dL 135 <del>?</del> KW- NST reactive. no vb/lof/ctx. good fm 06/16/24 <del>?</del> 33w 6d 382 lb 6 oz 132/82 2+ <del>?</del> Negative 130 <del>?</del> JV- pt complains of urinary frequency and burning. She has blood and protein in the urine. starting macrobid and sending urine for culture. JV- pt complains of urinary frequency and burning. She has blood and protein in the urine. starting macrobid and sending urine for culture. nst non-reactive sending to l&d 06/22/24 <del>?</del> 34w 5d 384 lb 2 oz 136/81 Negative <del>?</del> Negative 140 <del>?</del> KW- no vb/lof/ctx. good fm NST reactive today. Requesting to do NST on 07/03 on WP due to work schedule. has 36 week growth scheduled 06/25/24 <del>?</del> 35w 1d 382 lb 6 oz 137/85 1+ <del>?</del> 1000 g/dL 180 <del>?</del> MH-baby tachy. Mom w/proteinuria, headache, blurred vision. To WP ROS Constitutional Constitutional: Reports systems reviewed and no addt'l complaints, except as documented Gastrointestinal Gastrointestinal: Denies bloating, constipation, cramping, diarrhea, nausea or vomiting Genitourinary Genitourinary: Reports other Details: Denies vaginal odor, vaginal bleeding, or vaginal discharge ; Denies difficulty urinating or flank pain Physical Exam HEENT normocephalic Resp normal respiratory effort and normal air movement no CVA tenderness Extremity normal to inspection General Extremity: edema bilateral (trace ) NST FHR Rate Baby A Baseline: 140 Variability:: Moderate Accelerations:: 15 x 15 Decelerations:: None NST Reactive:: Yes FHR Category:: Category I Assessment & Plan (1) Headache in : COMMENT: PIH labs normal, prot:cr 169 on 06/25/24, bp low normal. PLAN: will try fioricet and vistaril, dark room and hydration then dc to home when feeling better. Charges/Coding Multi Select Codes Visit Charges Office Visit/Consults: 14191 OV L3 Est 20min Urinary/Genital Urinary/Genital CPT Codes: 19102-71 non-stress test Interp
[2024-06-25] MEDS: hydrOXYzine PAM 25 MG Capsule 50 MG PO (17:37)
[2024-06-25 18:07] LABS: Bedside Glucose 34 mg/dL (74-106)
[2024-06-25 18:41] LABS: Bedside Glucose 65 mg/dL (74-106)
== END 2024-06-25 18:57 | disposition home or self-care (01) ==
LOC: BWCLAB 13:40 → WPOUT 13:54 → WP 13:55
PROVIDERS: PCP Family Medicine; Referring Provider Nurse Practitioner Women's Health; Visit Provider Obstetrics & Gynecology
DX: O26.893 Other specified pregnancy related conditions, third trimester (principal); Z79.4 Long term (current) use of insulin; R51.9 Headache, unspecified; O24.013 Pre-existing type 1 diabetes mellitus, in pregnancy, third trimester; O99.283 Endocrine, nutritional and metabolic diseases complicating pregnancy, third trimester; E07.9 Disorder of thyroid, unspecified; Z79.82 Long term (current) use of aspirin; Z79.890 Hormone replacement therapy; Z3A.35 35 weeks gestation of pregnancy; Z11.52 Encounter for screening for COVID-19
CPT/HCPCS: 59025; 59050; 80053; 81001; 82570; 82962; 84156; 84443; 85025; 87631; 99221; G0378

== ENCOUNTER → 2024-06-30 | Outpatient (CLI) | payer OTHER, SELFPAY | END | disposition home or self-care (01) | LOC: LABSPEC 11:44 | PROVIDERS: PCP Family Medicine; Referring Provider Obstetrics & Gynecology; Visit Provider Obstetrics & Gynecology | DX: O09.93 Supervision of high risk pregnancy, unspecified, third trimester (principal); Z3A.00 Weeks of gestation of pregnancy not specified | CPT/HCPCS: 87077; 87081; 87186 ==

== ENCOUNTER 2024-07-01 20:44 | Outpatient (CLI) | payer OTHER, SELFPAY ==
[2024-07-01] VITALS (11 sets, daily range): BP systolic 135–192; BP diastolic 55–94; PULSE 94–116; RESP 18; TEMP 36.7; O2SAT 99; BMI 55.5
[2024-07-01] MEDS: Lactated Ringers 500 ML 999 ML IV (22:05)
[2024-07-01 22:19] LABS: Hematocrit 33.6 % (37-47); Hemoglobin 10.8 g/dL (12.0-15.0); Mean Corp Hgb Conc 32.1 g/dL (32-36); Mean Corpuscular Hgb 24.2 pg (27.0-32.0); Mean Corpuscular Volume 75.2 fL (81-99); Mean Platelet Vol. 11.1 fl (6.2-12.0); Platelet Count 226 K/mm3 (150-450); RBC Distribution Width CV 14.5 % (11.6-14.6); RBC Distribution Width SD 38.9 fl (35.1-43.9); Red Blood Count 4.47 M/mm3 (4.2-5.4)
[2024-07-01 22:48] LABS: Protein, Urine (Random) 6.5 mg/dL (0.0-12.0); Protein:Creat Ratio 148 mg/g CRE (0-200)
[2024-07-01 22:50] LABS: AST(SGOT) 14 U/L (<=31); Alanine Aminotransfer ALT/SGPT 7 U/L (<=34); Creatinine, Serum 0.68 mg/dL (0.70-1.20); EST Glomerular Filtration Rate 121 (>60); Estimated Creatinine Clearance 214.52 ml/min (50-250); Uric Acid 4.1 mg/dL (2.6-6.0)
[2024-07-01] MEDS: Acetaminophen 500 MG Tablet 1000 MG PO (22:54)
[2024-07-02] VITALS (16 sets, daily range): BP systolic 109–143; BP diastolic 56–74; PULSE 74–229; RESP 16–18; TEMP 36.4–36.7; O2SAT 81–100
[2024-07-02 02:48] LABS: Bedside Glucose 31 mg/dL (74-106)
[2024-07-02 02:48] LABS: Bedside Glucose 79 mg/dL (74-106)
[2024-07-02 04:33] LABS: Bedside Glucose 68 mg/dL (74-106)
--- NOTE | 2024-07-02 05:18 | US_ITS ---
PROCEDURE: BIOPHYSICAL PROF W/O NON STRESS 07/02/2024 REASON FOR EXAM: Decreased movement perceived ultrasound yesterday. TECHNIQUE: Ultrasound imaging focused on the fetus is performed. FINDINGS: presentation is cephalic. heart rate is 116 beats per minute. Amniotic fluid is grossly within normal limits. Largest vertical pocket is 2.6 cm ISA is 9.0 cm. Placenta location: Anterior and low-lying. Placenta is grade 2 with indentations along chorionic plate; larger calcifications and a configuration lung the basilar plate age by LMP 36 weeks, 1 day. Estimated due date by LMP: 07 29 2024. age by previous ultrasound: 38 weeks, 1 day EVELIN by previous ultrasound: 07/16/2019 US/Biophysical Prof W/O Non Stres IMPRESSION: Biophysical profile score is 8/8 Reading [facility]
[2024-07-02 05:54] LABS: Hematocrit 30.3 % (37-47); Hemoglobin 9.8 g/dL (12.0-15.0); Mean Corp Hgb Conc 32.3 g/dL (32-36); Mean Corpuscular Hgb 24.3 pg (27.0-32.0); Mean Platelet Vol. 11.3 fl (6.2-12.0); Platelet Count 215 K/mm3 (150-450); RBC Distribution Width CV 14.5 % (11.6-14.6); RBC Distribution Width SD 38.7 fl (35.1-43.9); Red Blood Count 4.04 M/mm3 (4.2-5.4); White Blood Count 7.2 K/mm3 (4.4-11.0)
[2024-07-02 06:44] LABS: ALB/GLOB Ratio 1.1 RATIO (0.9-2.4); AST(SGOT) 12 U/L (<=31); Alanine Aminotransfer ALT/SGPT 7 U/L (<=34); Albumin, Serum 3.1 g/dL (3.5-5.0); Alkaline Phosphatase 103 U/L (35-104); Anion Gap 11 (5-15); BUN 7 mg/dL (4-19); BUN/Creat Ratio 13.5 RATIO (10-20); Calcium,Total 8.8 mg/dL (7.6-11.0); Carbon Dioxide 19.4 mmol/L (21.0-32.0); Chloride 108 mmol/L (98-108); Creatinine, Serum 0.55 mg/dL (0.70-1.20); EST Glomerular Filtration Rate 127 (>60); Estimated Creatinine Clearance 265.22 ml/min (50-250); Globulin 2.9 g/dL (2.2-4.2); Glucose 53 mg/dL (70-99); Potassium 3.7 mmol/L (3.3-5.1); Protein, Total 5.9 g/dL (5.9-8.4); Sodium Level 138 mmol/L (133-145); Total Bilirubin < 0.15 mg/dL (0.00-1.30)
[2024-07-02 08:28] LABS: Bedside Glucose 101 mg/dL (74-106)
[2024-07-02 08:28] LABS: Bedside Glucose 64 mg/dL (74-106)
[2024-07-02 08:28] LABS: Bedside Glucose 51 mg/dL (74-106)
[2024-07-02 08:28] LABS: Bedside Glucose 77 mg/dL (74-106)
[2024-07-02 08:28] LABS: Bedside Glucose 57 mg/dL (74-106)
--- NOTE | 2024-07-02 09:21 | PCM.PN.BLA ---
Progress Note patient is laying in bed without complaints. She states that she is feeling good movement. THe bpp was 8/8 this am and blood pressures are normal. Physical Exam Const alert, oriented x3, no apparent distress and healthy appearing General Appearance: cooperative; Negative for anxious HEENT normocephalic Face and Sinus: normal facial exam Eyes EOMs intact bilaterally and no scleral icterus General Eye: normal appearance of both eyes Resp normal respiratory effort Effort and Inspection: able to speak in complete sentences Cardio regular rate GI soft to palpation and non-tender Inspection: gravid Palpation: soft; Negative for tender Extremity normal to inspection, full ROM and no clubbing, cyanosis or edema General Extremity: Negative for calf tenderness or edema Skin Lesions: no lesions Rashes: no rashes Psych mental status grossly normal Assessment & Plan Assessment/Plan (1) Headache in : (2) Large for gestational age fetus affecting management of mother: QUALIFIERS: Fetus number: single or unspecified fetus Trimester: third trimester Qualified Code(s): O36.63X0 - Maternal care for excessive growth, third trimester, not applicable or unspecified (3) Elevated blood pressure affecting , antepartum: (4) Anemia affecting : (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 Visit Charges Inpatient E&M: 44794 Subs Hosp L3
[2024-07-02 09:34] LABS: Bedside Glucose 132 mg/dL (74-106)
[2024-07-03 02:02] LABS: 24HR. Urine Creatinine 1412.5 mg/24 hr (740.0-1540.0)
== END 2024-07-02 09:32 | disposition home or self-care (01) ==
LOC: WPOUT 20:50 → WP 20:51
PROVIDERS: PCP Family Medicine; Referring Provider Obstetrics & Gynecology; Visit Provider Obstetrics & Gynecology
DX: O26.893 Other specified pregnancy related conditions, third trimester (principal); R51.9 Headache, unspecified; O36.63X0 Maternal care for excessive fetal growth, third trimester, not applicable or unspecified; O99.213 Obesity complicating pregnancy, third trimester; Z3A.38 38 weeks gestation of pregnancy; O36.8130 Decreased fetal movements, third trimester, not applicable or unspecified; R03.0 Elevated blood-pressure reading, without diagnosis of hypertension; O99.013 Anemia complicating pregnancy, third trimester; E66.9 Obesity, unspecified; D64.9 Anemia, unspecified
CPT/HCPCS: 96360; 36415; 59050; 76819; 80053; 82565; 82570; 82962; 84156; 84450; 84460; 84550; 85027; 99221; G0378

== ENCOUNTER → 2024-07-01 | Outpatient (CLI) | payer OTHER, SELFPAY ==
--- NOTE | 2024-07-01 10:00 | US_ITS ---
PROCEDURE: OB LIMITED WITH BIOMETRICS 07/01/2024 REASON FOR EXAM: GROWTH TECHNIQUE: High resolution obstetric ultrasound performed using a 2D transducer. Standard views obtained, including biometry, anatomy survey, and Doppler studies. COMPARISON: Prior study dated June 03, 2024 FINDINGS Number: 1 Position: Vertex Placental Position: Anterior and not low-lying Placental Abnormalities: No evidence of previa. DIMENSIONS: Biparietal Diameter: 9.43 cm: 38 weeks and 3 days: 98 percentile / Head Circumference: 33.24 cm: 37 weeks and 6 days: 67 percentile/ Abdominal Circumference: 35.5 cm: 39 weeks and 3 days: 99 percentile/ Femur Length: 7.11 cm: 36 weeks and 3 days: 57 percentile/ ESTIMATED WEIGHT: 3555 g plus/-533 g ESTIMATED WEIGHT PERCENTILE (24+ weeks): 98 ESTIMATED GESTATIONAL AGE: Baseline: 36 weeks and 0 days By Ultrasound: 38 weeks and 0 days ESTIMATED DATE OF DELIVERY: Baseline: July 29, 2024 By Ultrasound: July 15, 2024 BIOPHYSICAL ASSESSMENT: Amniotic Fluid Volume: 4.4 cm Amniotic Fluid Index: 12 (8-24 cm normal range) Cardiac Motion: 123 (average) Trunk and Limb Motion: Present. MATERNAL ANATOMY: Adnexa: Neither maternal ovary is successfully identified. US/OB Limited With Biometrics IMPRESSION: Single live intrauterine gestation with a mean gestational age of 37 weeks and 4 days. The measurements obtained today fall with the normal expected range. Reading Location: [place] [id number]
== END | disposition home or self-care (01) ==
LOC: US 09:58
PROVIDERS: PCP Family Medicine; Referring Provider Nurse Practitioner Women's Health; Visit Provider Nurse Practitioner Women's Health
DX: O24.313 Unspecified pre-existing diabetes mellitus in pregnancy, third trimester (principal); Z3A.36 36 weeks gestation of pregnancy
CPT/HCPCS: 76816

== ENCOUNTER 2024-07-08 07:37 | Inpatient (IN) | payer OTHER, SELFPAY ==
[2024-07-08] VITALS (35 sets, daily range): BP systolic 118–158; BP diastolic 56–87; PULSE 70–93; RESP 16; TEMP 36.1–36.9; O2SAT 98–100; BMI 56.0
--- NOTE | 2024-07-08 07:53 | HP.PCM_ITS ---
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 Is patient in pain?: No Allergies amoxicillin Adverse Reaction (Verified 07/08/24 07:33) Rashbupropion (From Wellbutrin) Adverse Reaction (Verified 07/08/24 07:33) Othervenlafaxine (From Effexor) Adverse Reaction (Verified 07/08/24 07:33) Other Medications ?Medication ?Instructions ?Recorded ?Confirmed ?Type sertraline 100 mg tablet 100 mg PO DAILY 12/17/23 07/07/24 Histor y folic acid 1 mg tablet 1 mg PO QDAY 12/25/23 07/07/24 History multivitamin no.47-iron fum 27 1 cap PO DAILY 12/25/23 History mg-folate no.1 1 mg-dha 300 mg capsule (PNV-DHA) aspirin 81 mg chewable tablet 81 mg PO QDAY 01/29/24 07/07/24 History (Capri Chewable Low Dose Aspirin) Humalog KwikPen Insulin 200 200 unit subcut QDAY #90 mL 03/19/2411/23 Rx unit/mL (3 mL) subcutaneous (insulin lispro) pen needle, diabetic 32 gauge x #100 ea 04/20/24 07/07/24 Rx 5/32 (BD Ultra-Fine Yessica Pen Needle) levothyroxine 125 mcg tablet See Rx Instructions PO .COMPLEX 05/20/24 07/07/24 History Last Menstrual Period: 10/16/23 : No PFSH PFSH Medical History Depression Anxiety Type 1 diabetes mellitus in second trimester, antepartum Vaginal candidiasis Diabetes mellitus type 1 Acute bronchitis, unspecified DKA (diabetic ketoacidoses) Thyroid disease History of pneumonia Irritable bowel syndrome History of migraine history of gastrointestinal problems H/O emotional problems Diabetes History of UTI Surgical History history of wisdom teeth removal Family History Grandmother Breast cancer Colon cancer Heart disease High cholesterol Ovarian cancer Uterine cancer Skin cancerAunt Anxiety Social History adopted: No household members: spouse current occupational status: employed current occupation: [employer] pets and animals: Yes (Avoid litter box) pets and animals: cat(s) and dog(s) history of recent travel: Yes (September) out of state: Yes out of country: No sexually active: Yes Smoking Status: Never smoker alcohol intake: former year quit: 2021 substance use type: does not use well-balanced diet: about half the time caffeine: No eating out: 1-3 times/week during the past year weight has: increased > 10 lbs what type of physical activity do you participate in: walking frequency: 1-2 times per week duration: 15-30 minutes/day katelynn/yarsani: Temple seatbelt use: always do you feel safe at home: Yes 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: Alex LopezButton Tacker History 1 Elective abortions Hx Para 0 Spontaneous abortions Hx # Term Pregnancies Ectopic pregnancies Hx # Pregnancies Multiple births # of living children HPI 37 wk NST ONLY Details: KATHERINE OCASIO is a 29 year old who presents for IOL secondary to diabetes and elevated bps in . no vb lof good fm OB Visit EVELIN Calculator Estimated Delivery Date Method Current WG Current Estimate 07/29/24 Ultrasound #1 37w 0d Other Estimates 07/22/24 LMP (Certain) 38w 0d Expected Delivery Route/Plan Labor Preferences- CB/BF classes: no labor support person: yi labor intervention preferences: [] pain management options preferred: epidural cut cord/dad catch: cord : yes PP control planned: discussed discussed possible routes of delivery and associated risks: [] special requests: [] Specific Issue/Plans Covid status: [] Flu vaccine: w/employer Tdap vaccine: given Rhogam: na LARC form signed: yes Problem list reviewed and updated with the most current plan of care details and appropriate orders placed. Relevant counseling for the gestational age provided. Continue routine care and follow up unless otherwise noted in visit notes/problem list details Initial Weight: Not Recorded Date -?-?-?-?-?-?-?-?-?-?-?-?- EGA Weight BP Urine Prot -?-?-?-?-?-?-?-?-?-?-?-?- Glucose FHR FuHt Pres Dilation -?-?-?-?-?-?-?-?-?-?-?-?- Effaced St Visit Note 01/01/24-?-?-?-?-?-?-?-?-?-?-?-?- 10w 0d 382 lb 131/83 -?-?-?-?-?-?-?-?-?-?-?-?- 170 -?-?-?-?-?-?-?-?-?-?-?-?- SM- CRL 3.16cm not cons with LMP no vb cramping 01/29/24-?-?-?-?-?-?-?-?-?-?-?-?- 14w 0d 381 lb 6 oz 122/83 Negative -?-?-?-?-?-?-?-?-?-?-?-?- Negative 153 -?-?-?-?-?-?-?-?-?-?-?-?- MH-No VB. glucose well controlled. Dr Borden increased synthroid and will recheck in 6 weeks. Plans to repeat NIPT in 2 wk and will do AFP then. Echo ordered 22-24 wk. Anatomy w/[facility] US 02/24/24-?-?-?-?-?-?-?-?-?-?-?-?- 17w 5d 374 lb 124/80 Negative -?-?-?-?-?-?-?-?-?-?-?-?- Negative 150 -?-?-?-?-?-?-?-?-?-?-?-?- KW- no vb/lof/ctx. good fm. has echo and US scheduled. Dr Borden managing TSH and BS. doing well. discussed third trimester testing. 03/18/24-?-?-?-?-?-?-?-?-?-?-?-?- 21w 0d 377 lb 6 oz 125/84 Negative -?-?-?-?-?-?-?-?-?-?-?-?- 1000 g/dL 150 -?-?-?-?-?-?-?-?-?-?-?-?- SM- no vb lof good fm no regular ctx. 04/15/24-?-?-?-?-?-?-?-?-?-?-?-?- 25w 0d 378 lb 6 oz 115/79 Trace -?-?-?-?-?-?-?-?-?-?-?-?- Negative 145 -?-?-?-?-?-?-?-?-?-?-?-?- JV- no lof, vaginal bleeding, or dec fm. pt now on u-[address] Borden through her pump. Levels are better controlled on this and she doesn't have to change her site as often. normal echo report on chart today. 04/20/24-?-?-?-?-?-?-?-?-?-?-?-?- 25w 5d 379 lb 122/71 -?-?-?-?-?-?-?-?-?-?-?-?- 150 -?-?-?-?-?-?-?-?-?-?-?-?- KW- no vb/lof/ctx. heartbeat check today for some decreased FM. heard movement on doppler and FHR easily found. 05/06/24-?-?-?-?-?-?-?-?-?-?-?-?- 28w 0d 381 lb 4 oz 124/82 Negative -?-?-?-?-?-?-?-?-?-?-?-?- Negative 136 32 -?-?-?-?-?-?-?-?-?-?-?-?- MH-No VB, LOF. good FM. Larc, tdap. 05/20/24-?-?-?-?-?-?-?-?-?-?-?-?- 30w 0d 379 lb 138/84 Negative -?-?-?-?-?-?-?-?-?-?-?-?- Negative 145 36 -?-?-?-?-?-?-?-?-?-?-?-?- KW- no vb/lof/ctx. good fm. elevated bp today-pre e labs KW- no vb/lof/ctx. good fm. elevated bp today-pre e labs. has growth US and NSTs scheduled 06/05/24-?-?-?-?-?-?-?-?-?-?-?-?- 32w 2d 379 lb 6 oz 131/82 Negative -?-?-?-?-?-?-?-?-?-?-?-?- Negative 140 -?-?-?-?-?-?-?-?-?-?-?-?- KW- no vb/lof/ctx. good fm. NST reactive. 06/08/24-?-?-?-?-?-?-?-?-?-?-?-?- 32w 5d 381 lb 135/81 Negative -?-?-?-?-?-?-?-?-?-?-?-?- Negative 135 -?-?-?-?-?-?-?-?-?-?-?-?- SM- no vb lof good fm n oreuglar ctx BS controlled fairly well 06/11/24-?-?-?-?-?-?-?-?-?-?-?-?- 33w 1d 380 lb 4 oz 125/79 Negative -?-?-?-?-?-?-?-?-?--?-?-?- 200 g/dL 135 -?-?-?-?-?-?-?-?-?-?-?-?- KW- NST reactive. no vb/lof/ctx. good fm 06/16/24-?-?-?-?-?-?-?-?-?-?-?-?- 33w 6d 382 lb 6 oz 132/82 2+ -?-?-?-?-?-?- ?-?-?-?-?-?- Negative 130 -?-?-?-?-?-?-?-?-?-?-?-?- JV- pt complains of urinary frequency and burning. She has blood and protein in the urine. starting macrobid and sending urine for culture. JV- pt complains of urinary frequency and burning. She has blood and protein in the urine. starting macrobid and sending urine for culture. nst non-reactive sending to l&d 06/22/24-?-?-?-?-?-?-?-?-?-?-?-?- 34w 5d 384 lb 2 oz 136/81 Negative -?-?-?-?-?-?-?-?-?-?-?-?- Negative 140 -?-?-?-?-?-?-?-?-?-?-?-?- KW- no vb/lof/ctx. good fm NST reactive today. Requesting to do NST on 07/03 on WP due to work schedule. has 36 week growth US scheduled 06/25/24-?-?-?-?-?-?-?-?-?-?-?-?- 35w 1d 382 lb 6 oz 137/85 1+ -?-?-?-?-?-?- ?-?-?-?-?-?- 1000 g/dL 180 -?-?-?-?-?-?-?-?-?-?-?-?- MH-baby tachy. Mom w/proteinuria, headache, blurred vision. To WP 06/30/24-?-?-?-?-?-?-?-?-?-?-?-?- 35w 6d 387 lb 8 oz 133/84 Negative -?-?-?-?-?-?-?-?-?-?-?-?- 500 g/dL 120 39 Cephalic 1-?-?-?-?-?-?-?- ?-?-?-?-?- 80 -2 JV- NST reactive. gbs tod ay. planning for IOL next week. JV- NST reactive. gbs today. planning for IOL next week as long as growth looks less than 4500 grams this week. JV- NST reactive. gbs today. planning for IOL next week as long as growth looks less than 4500 grams this week. fasting glucose level today was 140, rpt was 180. setting up for priority 1 uncontrolled DM. 07/07/24-?-?-?-?-?-?-?-?-?-?-?-?- 36w 6d 392 lb 111/72 Negative -?-?-?-?-?-?-?-?--?-?-?-?- Negative 130 -?-?-?-?-?-?-?-?-?-?-?-?- SM- plan IOL tomorrow no vb lof good fm no reuglar ctx ACOG First Trimester First Trimester: Desire for , Alcohol, Tobacco Cessation, Illicit/Recreational Drug/Substance Use, Intimate Partner Violence, Barriers to care, Unstable Housing, Communication Barriers, Environmental/Work Hazards, Anticipated Course of Care, Toxoplasmosis Precations, Use of Any medications, Sexual activity, Exercise, Dental Care, Sauna/Hot tub use, Seat Belt use, Childbirth classes/Hospital facilities, Travel, Indications for Ultrasound and Screening for Aneuploidy; Discussed Second Trimester Second Trimester: Signs and Symptoms of Labor, Selecting a care provider, Reproductive Life Planning & Contreception, Depression/Anxiety and Intimate Partner Violence; Discussed Tobacco Cessation Third Trimester Third Trimester: Pain Management Plans, Labor support person(s), Immediate Larc, Circumcision preference, Signs and Symptoms of Preeclampsia, Infant Feeding No and Family Medical Leave or Disability Forms ROS Const Reports system reviewed and no additional complaints, except as documented Card Reports system reviewed and no additional complaints, except as documented Resp Reports system reviewed and no additional complaints, except as documented GI Reports system reviewed and no additional complaints, except as documented and Reports nausea Reports system reviewed and no additional complaints, except as documented Musc Reports system reviewed and no additional complaints, except as documented Exam Const General: cooperative, healthy appearing, comfortable and anxious HENMT Head: normal to inspection Nose: external nose normal Face and sinus: normal facial exam Neck Neck: normal visual inspection, full ROM and no lymphadenopathy Thyroid: thyroid normal Chest Chest palpation & inspection: normal inspection of the chest Resp Effort & Inspection: normal respiratory effort GI Inspection: normal to inspection Palpation: soft and other (gravid uterus) Other: vertex and appropriate size for gestational age Other: Cervical Exam: Extrem General: pedal edema Office Procedures Non-stress Test Non-Stress Test Indications for Monitoring: Yes diabetes Heart Rate Baseline: 130 Heart Rate Variability: moderate Movement: Present Heart Rate Accelerations: Present Decelerations: Absent Contractions: Absent Impression: Yes Reactive Non-Stress Test Category 1 Results POC Urinalysis 2 Dip (Clinic) Office Urine Glucose Negative Last Edit by Lakesha Mendoza on 07/07/24 11:16 Office Urine Protein Negative Last Edit by Lakesha Mendoza on 07/07/24 11:16 Coding Level of Care Code OB Routine Diagnoses Positive GBS test B95.1 Headache in O26.899; R51.9 tachycardia Non-reactive NST (non-stress test) O28.8 Excessive growth affecting management of in third trimester, single or unspecified fetus O36.63X0 Fetus number: single or unspecified fetus Trimester: third trimester Elevated blood pressure affecting , antepartum O16.9 Anemia affecting O99.019 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 Obesity affecting in second trimester, unspecified obesity type O99.212 Obesity type affecting : unspecified obesity Trimester: second trimester Anxiety and depression F41.9; F32.A Supervision of high risk in third trimester O09.93 Trimester: third trimester 36 weeks gestation of Z3A.36 Weeks of gestation: 36 weeks Vitamin D deficiency E55.9 Microalbuminuria R80.9 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 allergic to amoxicillin (3) Headache in : Status: Acute Comment: PIH labs normal, prot:cr 169 on 06/25/24, bp low normal. (4) tachycardia: Status: Acute (5) Non-reactive NST (non-stress test): Status: Acute Comment: reactive nst (6) Large for gestational age fetus affecting management of mother: Status: Acute Qualifiers: Fetus number: single or unspecified fetus Trimester: third trimester Qualified Code(s): O36.63X0 - Maternal care for excessive growth, third trimester, not applicable or unspecified Comment: 36wk EFW 99%, AC 98% (7) Elevated blood pressure affecting , antepartum: Status: Acute (8) Anemia affecting : Status: Acute Comment: Add FE. Recheck 4 wk (9) Modified White class B pregestational diabetes mellitus: Status: Acute Comment: baseline labs, ekg. che dana. has baseline proteinuria. neg AFP screen, echo at 22-24 weeks/normal. declines NT. has insulin pump. 32wk:growth US q4w and twice wkly NST (10) Obesity affecting : Status: Chronic Qualifiers: Obesity type affecting : unspecified obesity Trimester: second trimester Qualified Code(s): O99.212 - Obesity complicating , second trimester (11) Anxiety and depression: Status: Acute Comment: sertraline: stable (12) Supervision of high-risk : Status: Acute Qualifiers: Trimester: third trimester Qualified Code(s): O09.93 - Supervision of high risk , unspecified, third trimester Comment: PRR , EVELIN 07/29/24, boy Peter David (13) : Status: Acute Qualifiers: Weeks of gestation: 36 weeks Qualified Code(s): Z3A.36 - 36 weeks gestation of Comment: nl anatomy US [facility] (WP nurse). echo ordered. APF neg. NIPT low risk. 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 pump in place. (20) Diabetes mellitus type 1: Status: Chronic Qualifiers: Diabetes mellitus complication detail: with microalbuminuria Diabetes mellitus complication status: with kidney complications Qualified Code(s): E10.29 - Type 1 diabetes mellitus with other diabetic kidney complication; R80.9 - Proteinuria, unspecified Orders: Orders POC Urinalysis 2 Dip (Clinic) 07/07/24 OB NST 07/07/24 O16.9 - Unspecified maternal hypertension, unspecified trimester, O24.012 - Pre-existing type 1 diabetes mellitus, in , second trimester, O24.319 - Unspecified pre-existing diabetes mellitus in , unspecified trimester, O26.899 - Other specified related conditions, unspecified trimester, O36.63X0 - Maternal care for excessive growth, third trimester, not applicable or unspecified, O99.019 - Anemia complicating , unspecified trimester, R51.9 - Headache, unspecified Patient presents IOL, plan management for with pit fb IOL. Pain management: plans epidural. GBS positive Management of any complications: monitor BS per protocol, insulin pump vs insulin drip depending on levels I have reviewed the PFSH and made any clinically relevant updates.
[2024-07-08] MEDS: Lactated Ringers 1,000 ML 50 ML IV (08:50)
[2024-07-08] MEDS: 0.9% Normal Saline Single 100 ML IV.SOLN. INTRA-UTER (08:50)
[2024-07-08] MEDS: Clindamycin 900 MG/50 ML BAG 75 MG IV ×3 (09:00→21:40)
[2024-07-08 09:40] LABS: Syphilis Antibodies Nonreactive (Nonreactive)
[2024-07-08 10:13] LABS: Absolute Lymphocyte Count 1.58 X10^3/uL (0.83-4.51); Absolute Neutrophil Count 6.1 X10^3/uL (2.0-7.7); Basophil# 0.03 X10^3/uL; Basophil% 0.4 % (0-1); Eosinophil# 0.09 X10^3/uL; Eosinophils% 1.1 % (0-5); Hematocrit 31.8 % (37-47); Hemoglobin 10.2 g/dL (12.0-15.0); Lymphocyte # 1.58 X10^3/ul (0.83-4.51); Lymphocyte % 18.5 % (19-41); Mean Corp Hgb Conc 32.1 g/dL (32-36); Mean Corpuscular Volume 74.8 fL (81-99); Mean Platelet Vol. 10.6 fl (6.2-12.0); Monocyte# 0.62 X10^3/uL; Monocyte% 7.3 % (0-10); NRBC Flagged by Analyzer 0 % (0-5); Neutrophil # 6.13 X10^3/uL (2.7-7.7); Neutrophil % 71.9 % (47-70); Platelet Count 237 K/mm3 (150-450); RBC Distribution Width CV 14.3 % (11.6-14.6); RBC Distribution Width SD 37.9 fl (35.1-43.9); Red Blood Count 4.25 M/mm3 (4.2-5.4); White Blood Count 8.5 K/mm3 (4.4-11.0)
[2024-07-08] MEDS: Oxytocin 15 Units/NS 250ml 15 UNITS/250 ML IV.SOLN 2 UNITS IV (10:30)
[2024-07-08 11:40] LABS: Bedside Glucose 74 mg/dL (74-106)
[2024-07-08 11:45] LABS: AST(SGOT) 13 U/L (<=31); Alanine Aminotransfer ALT/SGPT 8 U/L (<=34); Albumin, Serum 3.1 g/dL (3.5-5.0); Alkaline Phosphatase 114 U/L (35-104); Anion Gap 13 (5-15); BUN 8 mg/dL (4-19); BUN/Creat Ratio 13.1 RATIO (10-20); Calcium,Total 8.3 mg/dL (7.6-11.0); Carbon Dioxide 17.7 mmol/L (21.0-32.0); Chloride 109 mmol/L (98-108); Creatinine, Serum 0.64 mg/dL (0.70-1.20); EST Glomerular Filtration Rate 122 (>60); Estimated Creatinine Clearance 229.12 ml/min (50-250); Glucose 74 mg/dL (70-99); Potassium 3.8 mmol/L (3.3-5.1); Protein, Total 6.1 g/dL (5.9-8.4); Sodium Level 140 mmol/L (133-145); Total Bilirubin 0.26 mg/dL (0.00-1.30)
[2024-07-08] MEDS: fentaNYL-bupivacaine (epidural) 100 ML BAG EPIDURAL ×3 (14:31→23:41)
[2024-07-08] MEDS: Lactated Ringers 1,000 ML 200 ML IV ×2 (15:08→20:38)
[2024-07-08 16:11] LABS: Bedside Glucose 84 mg/dL (74-106)
[2024-07-08 18:05] LABS: Bedside Glucose 70 mg/dL (74-106)
[2024-07-08 18:05] LABS: Bedside Glucose 59 mg/dL (74-106)
[2024-07-08] MEDS: Acetaminophen 500 MG Tablet PO (18:39)
[2024-07-08 19:38] LABS: Bedside Glucose 63 mg/dL (74-106)
[2024-07-08 19:38] LABS: Bedside Glucose 88 mg/dL (74-106)
--- NOTE | 2024-07-08 21:40 | OB.TRI.PN ---
Progress Notes Progress Note: cat I tracing now 7 cm continue pit per protocol, may increase to 6 mU still under adequate ctx. managing BS per insulin pump Laboratory Studies: Laboratory Tests 07/08/24 07/08/24 07/08/24 Range/Units 19:19 18:45 17:37 WBC (4.4-11.0) K/mm3 RBC (4.2-5.4) M/mm3 Hgb (12.0-15.0) g/dL Hct (37-47) % MCV (81-99) fL MCH (27.0-32.0) pg MCHC (32-36) g/dL RDW Std Deviation (35.1-43.9) fl RDW Coeff of Camila (11.6-14.6) % Plt Count (150-450) K/mm3 MPV (6.2-12.0) fl Immature Gran % (Auto) (0.0-0.9) % Neut % (Auto) (47-70) % Lymph % (Auto) (19-41) % [place] % (Auto) (0-10) % Eos % (Auto) (0-5) % Baso % (Auto) (0-1) % Absolute Neuts (auto) (2.0-7.7) X10^3/uL Absolute Lymphs (auto) (0.83-4.51) X10^3/uL Nucleated RBC % (0-5) % Sodium (133-145) mmol/L Potassium (3.3-5.1) mmol/L Chloride (98-108) mmol/L Carbon Dioxide (21.0-32.0) mmol/L Anion Gap (5-15) BUN (4-19) mg/dL Creatinine (0.70-1.20) mg/dL Estim Creat Clear Calc (50-250) ml/min Est GFR (MDRD) Non-Af (>60) BUN/Creatinine Ratio (10-20) RATIO Glucose (70-99) mg/dL Calcium (7.6-11.0) mg/dL Total Bilirubin (0.00-1.30) mg/dL AST (<=31) U/L ALT (<=34) U/L Alkaline Phosphatase (35-104) U/L Total Protein (5.9-8.4) g/dL Albumin (3.5-5.0) g/dL Globulin (2.2-4.2) g/dL Albumin/Globulin Ratio (0.9-2.4) RATIO Syphilis Total Ab (Nonreactive) POC Glucose 88 63 L 70 L (74-106) mg/dL Blood Type Antibody Screen 07/08/24 07/08/24 07/08/24 Range/Units 17:17 15:52 11:04 WBC (4.4-11.0) K/mm3 RBC (4.2-5.4) M/mm3 Hgb (12.0-15.0) g/dL Hct (37-47) % MCV (81-99) fL MCH (27.0-32.0) pg MCHC (32-36) g/dL RDW Std Deviation (35.1-43.9) fl RDW Coeff of Camila (11.6-14.6) % Plt Count (150-450) K/mm3 MPV (6.2-12.0) fl Immature Gran % (Auto) (0.0-0.9) % Neut % (Auto) (47-70) % Lymph % (Auto) (19-41) % [place] % (Auto) (0-10) % Eos % (Auto) (0-5) % Baso % (Auto) (0-1) % Absolute Neuts (auto) (2.0-7.7) X10^3/uL Absolute Lymphs (auto) (0.83-4.51) X10^3/uL Nucleated RBC % (0-5) % Sodium (133-145) mmol/L Potassium (3.3-5.1) mmol/L Chloride (98-108) mmol/L Carbon Dioxide (21.0-32.0) mmol/L Anion Gap (5-15) BUN (4-19) mg/dL Creatinine (0.70-1.20) mg/dL Estim Creat Clear Calc (50-250) ml/min Est GFR (MDRD) Non-Af (>60) BUN/Creatinine Ratio (10-20) RATIO Glucose (70-99) mg/dL Calcium (7.6-11.0) mg/dL Total Bilirubin (0.00-1.30) mg/dL AST (<=31) U/L ALT (<=34) U/L Alkaline Phosphatase (35-104) U/L Total Protein (5.9-8.4) g/dL Albumin (3.5-5.0) g/dL Globulin (2.2-4.2) g/dL Albumin/Globulin Ratio (0.9-2.4) RATIO Syphilis Total Ab (Nonreactive) POC Glucose 59 L 84 74 (74-106) mg/dL Blood Type Antibody Screen 07/08/24 07/08/24 Range/Units 10:00 08:31 WBC 8.5 (4.4-11.0) K/mm3 RBC 4.25 (4.2-5.4) M/mm3 Hgb 10.2 L (12.0-15.0) g/dL Hct 31.8 L (37-47) % MCV 74.8 L (81-99) fL MCH 24.0 L (27.0-32.0) pg MCHC 32.1 (32-36) g/dL RDW Std Deviation 37.9 (35.1-43.9) fl RDW Coeff of Camila 14.3 (11.6-14.6) % Plt Count 237 (150-450) K/mm3 MPV 10.6 (6.2-12.0) fl Immature Gran % (Auto) 0.800 (0.0-0.9) % Neut % (Auto) 71.9 H (47-70) % Lymph % (Auto) 18.5 L (19-41) % [place] % (Auto) 7.3 (0-10) % Eos % (Auto) 1.1 (0-5) % Baso % (Auto) 0.4 (0-1) % Absolute Neuts (auto) 6.1 (2.0-7.7) X10^3/uL Absolute Lymphs (auto) 1.58 (0.83-4.51) X10^3/uL Nucleated RBC % 0 (0-5) % Sodium 140 (133-145) mmol/L Potassium 3.8 (3.3-5.1) mmol/L Chloride 109 H (98-108) mmol/L Carbon Dioxide 17.7 L (21.0-32.0) mmol/L Anion Gap 13 (5-15) BUN 8 (4-19) mg/dL Creatinine 0.64 L (0.70-1.20) mg/dL Estim Creat Clear Calc 229.12 (50-250) ml/min Est GFR (MDRD) Non-Af 122 (>60) BUN/Creatinine Ratio 13.1 (10-20) RATIO Glucose 74 (70-99) mg/dL Calcium 8.3 (7.6-11.0) mg/dL Total Bilirubin 0.26 (0.00-1.30) mg/dL AST 13 (<=31) U/L ALT 8 (<=34) U/L Alkaline Phosphatase 114 H (35-104) U/L Total Protein 6.1 (5.9-8.4) g/dL Albumin 3.1 L (3.5-5.0) g/dL Globulin 3.0 (2.2-4.2) g/dL Albumin/Globulin Ratio 1.0 (0.9-2.4) RATIO Syphilis Total Ab Nonreactive (Nonreactive) POC Glucose (74-106) mg/dL Blood Type O POSITIVE Antibody Screen NEGATIVE
[2024-07-08 22:10] LABS: Bedside Glucose 59 mg/dL (74-106)
[2024-07-08 22:10] LABS: Bedside Glucose 70 mg/dL (74-106)
[2024-07-08 22:10] LABS: Bedside Glucose 57 mg/dL (74-106)
[2024-07-08] MEDS: Ondansetron 4 MG/2 ML Vial IV (22:18)
--- NOTE | 2024-07-08 22:29 | NURSING ---
Pt's BGT at 2032 was 57. Protocol followed for PO carbohydrates and repeating BGT's until result WNL.
[2024-07-08 23:02] LABS: Bedside Glucose 51 mg/dL (74-106)
[2024-07-08] MEDS: Sertraline 100 MG Tablet PO (23:40)
[2024-07-09] VITALS (40 sets, daily range): BP systolic 108–133; BP diastolic 47–79; PULSE 73–200; RESP 16–20; TEMP 36.1–37.3; O2SAT 84–100
[2024-07-09 00:04] LABS: Bedside Glucose 64 mg/dL (74-106)
[2024-07-09 00:04] LABS: Bedside Glucose 81 mg/dL (74-106)
--- NOTE | 2024-07-09 00:19 | NURSING ---
Bedside BGT low at 2215 and 2345, and RN followed protocol with carbohydrates and repeat BGT's until pt's BGT was WNL.
[2024-07-09 00:33] LABS: Bedside Glucose 86 mg/dL (74-106)
[2024-07-09 01:42] LABS: Bedside Glucose 81 mg/dL (74-106)
[2024-07-09] MEDS: Ondansetron 4 MG/2 ML Vial IV (02:20)
[2024-07-09] MEDS: Oxytocin 15 Units/NS 250ml 15 UNITS/250 ML IV.SOLN 24 UNITS IV (02:49)
[2024-07-09] MEDS: Lactated Ringers 1,000 ML 200 ML IV (02:50)
[2024-07-09] MEDS: 0.9% Saline Lock 10 ML Syringe IV (04:07)
[2024-07-09] MEDS: fentaNYL-bupivacaine (epidural) 100 ML BAG EPIDURAL (04:28)
--- NOTE | 2024-07-09 04:31 | PCM.PN.BLA ---
Progress Note patient pushing on and off for 1 1/2 hours, having to do shorter pushes due to fatigue current tracing: FHT: 140 Moderate variability reactive mild periodic variables decelerations category II tracing [place]: q 2 1/2 - 3 Contractions reviewed tracing abnormalities since last note: no other significant A/P: pushing effectively but struggling with fatigue, taking breaks as needed. progressing well when pushing and pelvis feels adequate at this point, recommend continuing to push
[2024-07-09] MEDS: Clindamycin 900 MG/50 ML BAG 75 MG IV (04:43)
[2024-07-09] MEDS: Acetaminophen 500 MG Tablet PO (04:49)
[2024-07-09] MEDS: Lidocaine 1% (20 ml mdv) 20 ML Vial INFILT (05:18)
--- NOTE | 2024-07-09 05:35 | OB.VAGDELI_ITS ---
Assessment & Plan (1) Positive GBS test: COMMENT: treat in labor. allergic to amoxicillin (2) Headache in : COMMENT: PIH labs normal, prot:cr 169 on 06/25/24, bp low normal. (3) Large for gestational age fetus affecting management of mother: QUALIFIERS: Fetus number: single or unspecified fetus Trimester: third trimester Qualified Code(s): O36.63X0 - Maternal care for excessive growth, third trimester, not applicable or unspecified COMMENT: 36wk EFW 99%, AC 98% (4) Elevated blood pressure affecting , antepartum: (5) Anemia affecting : COMMENT: Add FE. Recheck 4 wk (6) Modified White class B pregestational diabetes mellitus: COMMENT: baseline labs, ekg. seevlad borden. has baseline proteinuria. neg AFP screen, echo at 22-24 weeks/normal. declines NT. has insulin pump. 32wk:growth US q4w and twice wkly NST (7) Obesity affecting : QUALIFIERS: Trimester: second trimester Obesity type affecting : unspecified obesity Qualified Code(s): O99.212 - Obesity complicating , second trimester (8) Anxiety and depression: COMMENT: sertraline: stable (9) Supervision of high-risk : QUALIFIERS: Trimester: third trimester Qualified Code(s): O09.93 - Supervision of high risk , unspecified, third trimester COMMENT: PRR , EVELIN 07/29/24, jaz Green David (10) : QUALIFIERS: Weeks of gestation: 36 weeks Qualified Code(s): Z3A.36 - 36 weeks gestation of COMMENT: nl anatomy US [facility] (WP nurse). echo ordered. APF neg. NIPT low risk. (11) Vitamin D deficiency: (12) Type 1 diabetes mellitus in second trimester, antepartum: COMMENT: follows with Dr Bodren. pump in place. (13) Vaginal delivery: COMMENT: SM IOL htn dmI jaz Green 37 Maternal Data Information EVELIN Calculator Estimated Delivery Date Method Current WG Current Estimate 07/29/24 Ultrasound #1 37w 1d Other Estimates 07/22/24 LMP (Certain) 38w 1d Vaginal Delivery Maternal Presentation Maternal Presentation: see assessment and plan Vaginal Delivery Information Procedure Performed: Spontaneous Vaginal Delivery Surgeon/Practitioner: Jeannie Mccoy Pre-Procedure Diagnosis: see assessment and plan Post-Procedure Diagnosis: same Type of anesthesia: Epidural and Pudendal Block (placed due to discomfort) Findings Description of procedure: patient was pushing and having significant perineal pain, so a pudendal block was placed. vagina was betadine prepped, and bilateral ischial spines identified, and 2 cm medial and posterior 10 cc of lidocaine with epi were injected bilaterally without complication. Patient began pushing and delivered the head in the [FELISHA] presentation. The head was delivered atraumatically [and a loose nuchal cord ?1 was identified and easily reduced over the 's head]. The anterior and posterior shoulders delivered without complication followed by the rest of the infant and the was placed on the maternal abdomen. Delayed cord clamping was employed for approximately 60 seconds. Cord was clamped and cut and gentle traction was applied to the cord and the placenta delivered spontaneously immediately following it was noted to be intact with three-vessel cord. The perineum and vagina were inspected and [was noted to have a [ ] -degree laceration that was repaired in the usual fashion with 3-0 vicryl rapide] [noted to have no laceration]. EBL was [100 cc]. Patient and tolerated delivery well. Presentation: Vertex Placental Delivery Description: Spontaneous Specimen collected: Yes Description of specimen(s) removed: placenta Cut Out Stitcher spout liner: No Post Vaginal Deli Medications given after delivery: Other (pitocin) Complication Complications: No Multi Select Codes Urinary/Genital Urinary/Genital CPT Codes: 54941 Vaginal Delivery [facility]
--- NOTE | 2024-07-09 05:43 | DCINST_ITS ---
Discharge Instructions Diet Discharge Diet: No restrictions DC O2, CPAP, BIPAP needs Home O2 Discharge instructions: No Dressing / Incision Discharge Activity: Return to Normal Activity, May Not Drive (while taking narcotic pain medications.) and May Shower May resume sexual activity in: 4-6 weeks Dressing / Incision Call your doctor if your incision/area has: Continuous Slow Oozing, Sudden Increased Bleeding, Increased Pain/ Swelling, Increased Redness and Foul Smelling Discharge Follow Up Care Please Follow Up With: Jeannie Mccoy MD When: Call [phone] to make an appointment with your doctor in 6 weeks. If you had elevated blood pressure or 4th degree laceration, you will need to be seen in 2 weeks. Test Results: Test results from this visit will be discussed in further detail at your follow- up appointment, if applicable. Discharge Plan Admission Admit Date/Time: 07/08/24 07:37 Attending Provider: Jeannie Mccoy Primary Care Provider: Iris Simpson Discharge Orders/Prescriptions Prescriptions: No Action PNV-DHA 27 mg iron-1 mg -300 mg capsule 1 cap PO DAILY folic acid 1 mg tablet 1 mg PO QDAY aspirin [Capri Chewable Aspirin] 81 mg tablet,chewable 81 mg PO QDAY (DME) pen needle, diabetic [BD Ultra-Fine Yessica Pen Needle] 32 gauge x 5/32 needle See Rx Instructions .Route Qty: 100 3RF Rx Instructions: daily levothyroxine 125 mcg tablet See Rx Instructions PO .COMPLEX Rx Instructions: 2 tabs Saturday/Saturday, Saturday/, 1 tab Saturday, Saturday,Saturday orally; sertraline 100 mg tablet 100 mg PO DAILY Humalog KwikPen Insulin 200 unit/mL (3 mL) insulin pen 200 unit subcut QDAY Qty: 90 1RF Rx Instructions: via insulin pump Referrals / Follow Up: Iris Simpson, DO [Primary Care Provider] -
[2024-07-09 06:55] LABS: Bedside Glucose 80 mg/dL (74-106)
[2024-07-09 06:55] LABS: Bedside Glucose 66 mg/dL (74-106)
[2024-07-09] MEDS: Oxytocin 15 Units/NS 250ml 15 UNITS/250 ML IV.SOLN 83 UNITS IV (07:04)
[2024-07-09] MEDS: Naproxen 500 MG Tablet PO ×2 (07:51→15:27)
--- NOTE | 2024-07-09 07:58 | NURSING ---
recovery BGT 65 via patient pump
--- NOTE | 2024-07-09 08:06 | NURSING ---
patient BGT pump alarmed BGT 57; patient requested cranberry juice, will reevaluate in approx 15 minutes
--- NOTE | 2024-07-09 08:22 | NURSING ---
BGT via patient pump 61, patient states she feels fine and is awaiting her breakfast tray
[2024-07-09] MEDS: NON-FORMULARY 200 SC (11:42)
[2024-07-09] MEDS: Acetaminophen 500 MG Tablet 1000 MG PO ×2 (13:13→20:06)
[2024-07-09] MEDS: Benzocaine/Lanolin/Aloe Vera 85 GM Spray 1 SPRAY TOPICAL (14:18)
--- NOTE | 2024-07-09 16:30 | NURSING ---
Pt BGT 92 via patients own pump
[2024-07-09] MEDS: Sertraline 100 MG Tablet PO (21:58)
[2024-07-10 00:13] VITALS: BP 108/58; PULSE 91; RESP 15; TEMP 36.8; O2SAT 99
[2024-07-10] MEDS: Naproxen 500 MG Tablet PO ×2 (00:34→10:00)
[2024-07-10] MEDS: Acetaminophen 500 MG Tablet 1000 MG PO ×2 (05:04→12:57)
[2024-07-10 05:31] VITALS: BP 116/64; PULSE 80; RESP 15; TEMP 36.6; O2SAT 97
[2024-07-10] MEDS: Levothyroxine 125 MCG Tablet PO (06:00)
--- NOTE | 2024-07-10 09:08 | DS.PCM_ITS ---
Providers Date of Admission: 07/08/24 Primary Care Physician: Iris Simpson DO [place] Reason For Visit: INDUCTION VAG DEL Diagnosis Discharge Diagnosis (1) Positive GBS test: Status: Acute Code(s): B95.1 - Streptococcus, group B, as the cause of diseases classified elsewhere (2) Headache in : Status: Acute Code(s): O26.899 - Other specified related conditions, unspecified trimester; R51.9 - Headache, unspecified (3) Large for gestational age fetus affecting management of mother: Status: Acute Code(s): O36.60X0 - Maternal care for excessive growth, unspecified trimester, not applicable or unspecified Qualifiers: Fetus number: single or unspecified fetus Trimester: third trimester Q ualified Code(s): O36.63X0 - Maternal care for excessive growth, third trimester, not applicable or unspecified (4) Elevated blood pressure affecting , antepartum: Status: Acute Code(s): O16.9 - Unspecified maternal hypertension, unspecified trimester (5) Anemia affecting : Status: Acute Code(s): O99.019 - Anemia complicating , unspecified trimester (6) Modified White class B pregestational diabetes mellitus: Status: Acute Code(s): O24.319 - Unspecified pre-existing diabetes mellitus in , unspecified trimester (7) Obesity affecting : Status: Chronic Code(s): O99.210 - Obesity complicating , unspecified trimester Qualifiers: Trimester: second trimester Obesity type affecting : u nspecified obesity Qualified Code(s): O99.212 - Obesity complicating , second trimester (8) Anxiety and depression: Status: Acute Code(s): F41.9 - Anxiety disorder, unspecified; F32.A - Depression, unspecified (9) Supervision of high-risk : Status: Acute Code(s): O09.90 - Supervision of high risk , unspecified, unspecified trimester Qualifiers: Trimester: third trimester Qualified Code(s): O09.93 - Supervision of high risk , unspecified, third trimester (10) : Status: Acute Code(s): Z34.90 - Encounter for supervision of normal , unspecified, unspecified trimester Qualifiers: Weeks of gestation: 36 weeks Qualified Code(s): Z3A.36 - 36 weeks gestation of (11) Vitamin D deficiency: Status: Chronic Code(s): E55.9 - Vitamin D deficiency, unspecified (12) Type 1 diabetes mellitus in second trimester, antepartum: Status: Acute Code(s): O24.012 - Pre-existing type 1 diabetes mellitus, in , second trimester (13) Vaginal delivery: Status: Acute Code(s): O80 - Encounter for full-term uncomplicated delivery Medications at Discharge Home Medications sertraline 100 mg tablet 100 mg PO DAILY anxiety 12/17/23 multivitamin no.47-iron fum 27 mg-folate no.1 1 mg-dha 300 mg capsule (PNV-DHA) 1 cap PO DAILY 12/25/23 Humalog KwikPen Insulin 200 unit/mL (3 mL) subcutaneous (insulin lispro) 200 unit subcut QDAY diabetic #90 mL 03/19/24 pen needle, diabetic 32 gauge x 5/32 (BD Ultra-Fine Yessica Pen Needle) #100 ea 04/20/24 levothyroxine 125 mcg tablet See Rx Instructions PO .COMPLEX hypothyroid 05/20/24 Physical Exam Const alert, oriented x3 and no apparent distress General Appearance: cooperative and comfortable Resp normal respiratory effort Cardio regular rate GI normal to inspection, nondistended, normoactive bowel sounds GI Narrative: uterus is firm below umbilicus Palpation: soft Back/Spine no CVA tenderness and thoraco-lumbar ROM normal Extremity normal to inspection, no clubbing, cyanosis or edema, no calf tenderness and no pedal edema Psych mental status grossly normal, thought process normal, cooperative, affect normal, speech normal, activity/motor behavior normal, denies homicidal ideation and denies suicidal ideation Weight / BMI Weight Weight: 390 lb 3.491 oz Body Mass Index (BMI) 56.0 ABG / Lab / Microbiology Data 07/08/24 10:00 07/08/24 10:00 D/C Instructions Discharge Diet: No restrictions May resume sexual activity in: 4-6 weeks Call your doctor if your incision/area has: Continuous Slow Oozing, Sudden Increased Bleeding, Increased Pain/ Swelling, Increased Redness and Foul Smelling Discharge DC O2, CPAP, BIPAP Needs Home O2 Discharge instructions: No Please Follow Up With: Jeannie Mccoy MD When: Call [phone] to make an appointment with your doctor in 6 weeks. If you had elevated blood pressure or 4th degree laceration, you will need to be seen in 2 weeks. Meaningful Use Info Meaningful Use Meaningful Use Diagnoses (Choose all that apply): None applicable Ischemic Stroke Statin Dosing Therapy Reference: STATIN DOSE THERAPY REFERENCE: * Patients > 75 years receive moderate or high dose statin therapy. * Patients 75 years or YOUNGER should receive HIGH intensity statin dose unless contraindicated. You will be required to document reason for non-treatment if statin daily dose does not meet guidelines. HIGH DOSE STATIN THERAPY DAILY Atorvastatin > than or = to 40 mg Rosuvastatin > than or = to 20 mg Amlodipine + Atorvastatin > than or = to 2.5/40 mg Ezetimibe + Simvastatin 10/80 mg Simvastatin 80mg Discharge Plan Admission Admit Date/Time: 07/08/24 07:37 Primary Reason for Your Visit: vaginal delivery Attending Provider: Jeannie Mccoy Primary Care Provider: Iris Simpson Discharge Orders/Prescriptions Prescriptions: Continued PNV-DHA 27 mg iron-1 mg -300 mg capsule 1 cap PO DAILY (DME) pen needle, diabetic [BD Ultra-Fine Yessica Pen Needle] 32 gauge x 5/32 needle See Rx Instructions .Route Qty: 100 3RF Rx Instructions: daily levothyroxine 125 mcg tablet See Rx Instructions PO .COMPLEX Rx Instructions: 2 tabs Saturday/Saturday, Saturday/, 1 tab Saturday, Saturday,Saturday orally; sertraline 100 mg tablet 100 mg PO DAILY Humalog KwikPen Insulin 200 unit/mL (3 mL) insulin pen 200 unit subcut QDAY Qty: 90 1RF Rx Instructions: via insulin pump Discontinued folic acid 1 mg tablet 1 mg PO QDAY aspirin [Capri Chewable Aspirin] 81 mg tablet,chewable 81 mg PO QDAY Referrals / Follow Up: Iris Simpson, DO [Primary Care Provider] - Disposition Disposition (needs filled in before D/C Order can be placed): Home, Self Care
[2024-07-10 09:30] VITALS: BP 129/69; PULSE 89; RESP 16; TEMP 36.6; O2SAT 98
[2024-07-10] MEDS: NON-FORMULARY 200 SC (10:00)
--- NOTE | 2024-07-10 11:48 | CASEMGMT ---
Social Work Brief Assessment - Labor and Delivery Unit Patient Address:[facility] [place] [address] [address] Phone number: [phone] Date and Time of Referral:? 07/09/24 Referred By: Nadine Date and time of intervention:? 07/10/24, 1115 Reason for Referral:?? anxiety, depression Sw completed chart review and acknowledges social work consult due to maternal mental health history. Sw presented to bedside and introduced self to mother of baby (MOB- Meseret), father of baby (FOB- David) and maternal grandma. Sw explained reason for sw involvement and then completed psychosocial assessment. Sw asked FOB and grandma to step out momentarily so that MOB could complete [place] Depression scale. Informant:?? Medical record and mother of baby (MOB) History:? ELTON is 29 year old female who is 1, para 0- now 1 following labor and delivery of . ELTON received routine care during with [place]. ELTON presented to hospital for scheduled induction of labor at 37 on 07/08/24 and delivered baby via vaginal delivery on 07/09/24. Baby boy, named Own, was born weighing 8lb 5oz and had apgars of 7 and 9 at one and five minutes of life, respectfully. ELTON is breast feeding and baby will be followed by Dr. Christine for pediatrics. Sw was welcomed to room by MOB and family members. ELTON reports that she and BEATRIZ have been together for 7 years after meeting online. This is first baby for parents. Both parents are gainfully employed outside of the home. BEATRIZ works for [employer] and is provided 6 weeks of paternity leave. ELTON works for at [employer] and is able to take 12 weeks off of work. Parents report residing in their home is MOB, FOMichelle and when ready for discharge, no concerns with their housing. Parents are supported by mostly their parents, other family members and friends. FOMichelle denies mental health history, and states that so far after delivery he is feeling okay. MOB states that BEATRIZ has been somewhat nervous but he is doing a good job. FOB and maternal grandma excused themselves respectfully while sw assessed MOB prior and current mental health. MOB reports to being diagnosed with anxiety and depression. MOB states that when she was younger she did have thoughts of hurting herself that resulted in being pink slipped and admitted for inpatient hospitalization. ELTON states following that time she was prescribed pharmacological medications to help her manage her mental health. MOB reports at this time she is prescribed Zoloft by her PCP and she thinks this is a good medication, she can notice positive improvements with the medicine. ELTON states that while talking to her PCP about her upcoming delivery and period, she was informed that she would be able to increase her dosage if she feels as though she is struggling. MOB states that so far after delivery she has been feeling well, happy, calm, at ease. MOB denies feeling anxious, overwhelmed or sad. MOB states she is nervous as to how she will feel when the oxytocin wears off from delivery. MOB scored a 6 on the [place]. Sw provided education and support. MOB states that she feels comfortable talking to FOB and her mom as well as her OBGYN if she were to struggle during this period. Sw discussed differences between normal mental health and red flag symptoms to be mindful of. Sw encouraged MOB to talk to FOB about ways he can help her and support her during this time. MOB stated that she believes he would be able to recognize if she were to struggle, but may not always know how to help her. Parents have obtained all necessary baby supplies and have natural supports in place. Parents deny substance use prior to and during. Sw educated MOB on shaken baby prevention and ABCs of safe sleep. Assessment:? MOB and baby admitted following labor and delivery. MOB observed to be laying comfortably in bed holding baby closely following his circumcision. FOB and maternal grandma also present and provide welcoming presence to sw. FOB and maternal grandma participated and talked openly and respectfully with sw, and then also left willingly while sw and MOB completed [place] Depression Scale. MOB with mental health history positive for anxiety and depression. She discussed her history, current symptoms, and concerns for what to expect during this period. MOB receptive to supports and services and potentially getting reconnected to a mental health agency to provide mental health supports. MOB was talkative and was observed to provide loving and appropriate hands on care to baby. Plan:? No other services requested or indicated. MOB and baby to be discharged when medically ready. Parents were provided literature regarding: signs and symptoms of baby blues and mood and anxiety disorders, Help Me Grow, shaken baby prevention, ABCs of safe sleep and a list of [facility] resources that are available for them should any needs present themselves. ?? No further needs requested or indicated. Velvet Hernandez, INTERIOR DESIGN COORDINATOR, HOUSE COORDINATOR
--- NOTE | 2024-07-10 12:00 | NURSING ---
Blood sugar per patient monitor-128
[2024-07-10] MEDS: Senna/Docusate Sodium 1 Tablet PO (12:57)
[2024-07-10 16:00] VITALS: BP 115/53; PULSE 87; RESP 16; TEMP 36.4; O2SAT 99
--- NOTE | 2024-07-10 16:20 | NURSING ---
Blood sugar per patient home monitor: 118
--- NOTE | 2024-07-14 15:18 | NURSING ---
Here for consult. Patient states she is doing well. States she has only minimal pain and is taking Tylenol or Ibuprofen as needed. Patient states her bleeding is minimal and denies any headaches, or visual changes. MOB states she was tearful last night but is better today. Encouraged her to call her OB if those feelings return, states understanding. Patient is pumping and doing some .
== END 2024-07-10 17:50 | disposition home or self-care (01) | DRG 807 ==
PROVIDERS: Admitting Provider Obstetrics & Gynecology; PCP Family Medicine; Referring Provider Obstetrics & Gynecology; Visit Provider Obstetrics & Gynecology
DX: O24.02 Pre-existing type 1 diabetes mellitus, in childbirth (principal); Z37.0 Single live birth; E66.9 Obesity, unspecified; D64.9 Anemia, unspecified; E03.9 Hypothyroidism, unspecified; E06.3 Autoimmune thyroiditis; F32.A Depression, unspecified; O16.4 Unspecified maternal hypertension, complicating childbirth; F41.9 Anxiety disorder, unspecified; O76 Abnormality in fetal heart rate and rhythm complicating labor and delivery; O70.1 Second degree perineal laceration during delivery; O69.81X0 Labor and delivery complicated by cord around neck, without compression, not applicable or unspecified; O99.02 Anemia complicating childbirth; O99.214 Obesity complicating childbirth; O99.284 Endocrine, nutritional and metabolic diseases complicating childbirth; O99.344 Other mental disorders complicating childbirth; O99.824 Streptococcus B carrier state complicating childbirth; O36.63X0 Maternal care for excessive fetal growth, third trimester, not applicable or unspecified; R03.0 Elevated blood-pressure reading, without diagnosis of hypertension; Z3A.36 36 weeks gestation of pregnancy; R51.9 Headache, unspecified; Z96.41 Presence of insulin pump (external) (internal); Z88.0 Allergy status to penicillin; Z79.82 Long term (current) use of aspirin; Z79.890 Hormone replacement therapy; Z79.899 Other long term (current) drug therapy; Z87.891 Personal history of nicotine dependence
CPT/HCPCS: 59025; 59050; 80053; 82962; 85025; 86780; 86850; 86900; 86901; 99221; A4216; G0378; J2405